=== PATIENT | male | born 1995 | race Caucasian/White ===

== ENCOUNTER 2022-11-02 18:47 | Emergency (ER) | payer OTHER, SELFPAY ==
[2022-11-02] VITALS (17 sets, daily range): BP systolic 79–136; BP diastolic 39–98; PULSE 75–110; RESP 10–20; TEMP 36.6; O2SAT 95–100
[2022-11-02] MEDS: SODIUM CHLORIDE 0.9% IV 2,000 ML 999 ML IV CONT (19:16)
[2022-11-02] MEDS: FAMOTIDINE 20 MG/2 ML VIAL IV PUSH (19:39)
--- NOTE | 2022-11-02 19:58 | ED.GENADULT ---
HPI - General Adult General Chief complaint: Nausea/Vomiting/Diarrhea Stated complaint: N/V/D SINCE 1600 Time Seen by Provider: 11/02/22 19:08 History of Present Illness HPI narrative: This is a 27-year-old male presenting with nausea vomiting diarrhea. Patient had [place] @ 11. By 2:00 p.m. he was having multiple episodes of profuse nausea/vomiting/diarrhea. Patient also describes diffuse abdominal pain at that time was a sharp stabbing, all over his abdomen an 8/10 in intensity. It improved with Zofran that was given by EMS. This time patient is feeling little bit dizzy. He denies fever, chills, chest pain difficulty breathing or urinary symptoms. He is back against flu and COVID. Related Data Allergies Allergy/AdvReac Type Severity Reaction Status Date / Time No Known Allergies Allergy Verified 11/02/22 19:01 [facility] Social History Social History Social History: Denies use of drugs alcohol or tobacco Exam Narrative: APPEARANCE: No apparent distress. Head: atraumatic. EYES: EOMI, NOSE: Atraumatic NECK: Trachea midline RESPIRATORY: No increased rate of breathing CARDIOVASCULAR: RRR, ABDOMINAL: Non-distended, nontender no guarding or rebound MUSCULOSKELETAl: No obvious deformities NEURO: Alert. Moving 4/4 extremities SKIN:: Warm, dry. Normal color PSYCHIATRIC: Normal affect Course Vital Signs Vital signs: Vital Signs Temperature 98 F 11/02/22 18:58 Pulse Rate 88 11/02/22 18:58 Respiratory Rate 20 11/02/22 18:58 Blood Pressure 79/39 L 11/02/22 18:58 Pulse Oximetry 98 11/02/22 18:58 Oxygen Delivery Room Air 11/02/22 18:58 Temperature 98 F 11/02/22 18:58 Pulse Rate 88 11/02/22 18:58 Respiratory Rate 20 11/02/22 18:58 Blood Pressure 111/64 11/02/22 19:08 Pulse Oximetry 98 11/02/22 18:58 Oxygen Delivery Room Air 11/02/22 18:58 Medical Decision Making [facility] Narrative Medical decision making narrative: -Presentation: 27-year-old male presenting with acute onset of nausea vomiting and diarrhea. -DDX includes but is not limited to: Food poisoning, gastroenteritis, viral syndrome -Co-morbidities complicating care: none -External Chart Review: none -Hx from independent Sources: EMS -Discussion of Management/Consultants: none -Independent interpretation of studies: Initial blood pressure was 79/39 although this improved to 111/64 without intervention. Patient will be given 2 L of fluid. CBC, CMP and lipase within normal limits Dx tests considered but not ordered: CT abdomen pelvis -abdomen is soft, nontender, Viral studies - patient is young, well-appearing and afebrile. -Procedures:None -Interventions: Zofran from EMS, Pepcid 20 mg, 2 L of fluid -RX: Zofran 4mg odt -Shared decision making / Disposition: A 27-year-old male presenting with acute onset nausea vomiting diarrhea. Patient improved with symptomatic treatment. patient's vital signs improved. He is able to tolerate p.o.. He is comfortable going home with return precautions we developed intractable nausea and vomiting, fever or severe abdominal pain return emergency department. He was educated on the expected course of his illness. Patient will be discharged with Zofran. Vital Signs Vital Signs: Vital Signs Temperature 98 F 11/02/22 18:58 Pulse Rate 88 11/02/22 18:58 Respiratory Rate 20 11/02/22 18:58 Blood Pressure 79/39 L 11/02/22 18:58 Pulse Oximetry 98 11/02/22 18:58 Oxygen Delivery Room Air 11/02/22 18:58 Temperature 98 F 11/02/22 18:58 Pulse Rate 88 11/02/22 18:58 Respiratory Rate 20 11/02/22 18:58 Blood Pressure 111/64 11/02/22 19:08 Pulse Oximetry 98 11/02/22 18:58 Oxygen Delivery Room Air 11/02/22 18:58 Discharge Plan Discharge Clinical Impression: Gastroenteritis Patient Disposition: Home, Self-Care Condition: Stable Additional Instructio
[2022-11-02 19:59] LABS: Basophils Percent Auto 0.5 % (0.2-1.2); Eosinophils Percent Auto 0.6 % (0-4.4); Hematocrit 50.5 % (42.0-52.0); Hemoglobin 16.9 g/dL (14.0-18.0); Immature Granulocyte Absolute 0.02 K/mm3 (0.00-0.031); Immature Granulocyte Percent A 0.3 % (0-0.5); Lymphocytes Absolute Auto 0.28 K/mm3 (0.9-3.2); Lymphocytes Percent Auto 4.2 % (18.3-44.2); Mean Corpuscular HGB Conc 33.5 g/dl (32-36); Mean Corpuscular Hemoglobin 29.6 pg (26-34); Mean Corpuscular Volume 88.6 fl (80-100); Mean Platelet Volume 10.5 fl (7.4-10.4); Monocytes Absolute Auto 0.4 K/mm3 (0.1-0.6); Neutrophils Absolute Auto 5.9 K/mm3 (1.3-6.7); Neutrophils Percent Auto 88.4 % (45.5-73.1); Platelet Count Result 190 k/mm3 (150-375); Red Cell Distribution Width 12.1 % (11.5-14.5); White Blood Count 6.7 K/mm3 (4.5-10.0)
[2022-11-02 20:11] LABS: Alanine Aminotransferase 21 U/L (6-50); Albumin Level 4.7 g/dL (3.5-5.1); Alkaline Phosphatase 70 U/L (38-126); Anion Gap 9 mmol/L (8-16); Aspartate Amino Transferase 22 U/L (17-59); Blood Urea Nitrogen 19 mg/dL (9-20); Calcium 8.9 mg/dL (8.4-10.2); Carbon Dioxide 26 mmol/L (22-30); Chloride 106 mmol/L (98-107); Estimated CRCL calculation 129 ml/min; Estimated Glomerular Filt Rate > 60; Glucose 97 mg/dL (65-110); Lipase 69 U/L (23-300); Potassium 4.4 mmol/L (3.4-5.0); Sodium 141 mmol/L (137-145)
[2022-11-02] MEDS: ONDANSETRON INJ 4 MG/2 ML VIAL 8 MG IV PUSH (21:44)
== END 2022-11-02 22:20 | disposition home or self-care (01) ==
PROVIDERS: Emergency Provider Emergency Medicine; PCP Internal Medicine
DX: K52.9 Noninfective gastroenteritis and colitis, unspecified (principal)
CPT/HCPCS: 36415; 80053; 83690; 85025; 96361; 96374; 96375; 99284; J2405; J7030

== ENCOUNTER 2024-08-07 09:28 | Emergency (ER) | payer OTHER, SELFPAY ==
--- NOTE | ~2024-08-07 | XR_ITS ---
EXAMINATION: XR chest 1V portable DATE: 08/07/2024 11:35 INDICATION: Shortness of breath TECHNIQUE: frontal view of the chest was obtained. COMPARISON: None FINDINGS: The lungs are clear with no focal airspace opacities, pulmonary edema, pleural effusion or pneumothor ax. The cardiomediastinal silhouette is normal. Visualized bones and soft tissues are unremarkable. IMPRESSION: 1. No acute cardiopulmonary disease. Reviewed, dictated and finalized at location A.
[2024-08-07 09:35] VITALS: BP 147/81; PULSE 96; RESP 13; TEMP 37.4; O2SAT 100
[2024-08-07 09:46] VITALS: BP 146/86; PULSE 107; RESP 18; O2SAT 96
--- NOTE | 2024-08-07 10:10 | ED_ITS ---
HPI - General Adult General Chief complaint: Unspecified Stated complaint: swollen throat Time Seen by Provider: 08/07/24 10:10 Source: patient Mode of arrival: EMS Limitations: no limitations History of Present Illness HPI narrative: 29 years old white male complaining of Heart Breeze, sore throat, body aches, diaphoresis started 4 days ago. Patient is telling me that people at work tested positive for COVID, pneumonia and flu. Patient went to urgent care today, received Solu-Medrol IM subsequently developed blurry vision and everything went black. Came to the ED by ambulance. Currently complaining of headache, dry mouth, body aches and diaphoresis. Related Data Allergies Allergy/AdvReac Type Severity Reaction Status Date / Time No Known Allergies Allergy Verified 08/07/24 09:33 Review of Systems Review of Systems: All systems reviewed & are unremarkable except as noted in HPI and below PMFSH Social History Social History Social History: Denies use of drugs alcohol or tobacco Exam Narrative: General appearance: Well-developed, well-nourished Skin: diaphoretic Head: Normocephalic, nontraumatic Eyes: Clear conjunctiva ENT: Oropharyngeal erythema, erythematous , large,tonsils bilaterally Neck: Supple, nontender Chest and respiratory: Airway patent, no respiratory distress, no accessory muscle use Heart: Regular rate/rhythm Abdomen: Soft, nontender, no organomegaly, quiet bowel sounds Vascular: Normal peripheral pulses, normal capillary refill. 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 is normal as tested, no gross motor deficit Course Course Emergency Course: patient came to the ED with sore throat, hard to breathe, diaphoresis, body aches Vital signs are stable Physical examination showed discharge ache, ill looking patient with severe oropharyngeal erythema Differential diagnosis upper respiratory viral infection, strep throat, mono Vital Signs Vital signs: Vital Signs Temperature 37.4 C 08/07/24 09:35 Pulse Rate 96 08/07/24 09:35 Respiratory Rate 13 08/07/24 09:35 Blood Pressure 147/81 H 08/07/24 09:35 Pulse Oximetry 100 08/07/24 09:35 Temperature 37.4 C 08/07/24 09:35 Pulse Rate 92 08/07/24 12:39 Respiratory Rate 19 08/07/24 12:39 Blood Pressure 111/69 08/07/24 12:39 Pulse Oximetry 97 08/07/24 12:39 Medical Decision Making MDM Narrative Medical decision making narrative: PATIENT CAME TO THE ED WITH SCALD SYMPTOMS VITAL SIGNS ARE STABLE PHYSICAL EXAMINATION SHOWING EXTENSIVE OROPHARYNGEAL ERYTHEMA DIFFERENTIAL DIAGNOSIS UPPER RESPIRATORY VIRAL INFECTION VERSUS MONO VERSUS STREP THROAT PATIENT TESTED NEGATIVE FOR STREP, MONO, COVID, RSV AND FLU CHEST X-RAY SHOWED NO ACUTE ABNORMALITIES DIAGNOSIS VIRAL PHARYNGITIS, DISCHARGED ON [id number] COLD MEDICINE. DISCHARGE THE PT WAS DISCHARGED TO HOME.THE PT,S CONDITION UPON DISCHARGE WAS FAIR,EDUCATION WAS PROVIDED TO THE PT IN REFERENCE TO THE FINAL IMPRESSION,DISCHARGE STUDY RESULTS,TREATMENT,PROGNOSIS AND NEED FOR FOLLOW UP . Differential Diagnosis Differential Diagnosis: ABOVE Vital Signs Vital Signs: Vital Signs Temperature 37.4 C 08/07/24 09:35 Pulse Rate 96 08/07/24 09:35 Respiratory Rate 13 08/07/24 09:35 Blood Pressure 147/81 H 08/07/24 09:35 Pulse Oximetry 100 08/07/24 09:35 Temperature 37.4 C 08/07/24 09:35 Pulse Rate 92 08/07/24 12:39 Respiratory Rate 19 08/07/24 12:39 Blood Pressure 111/69 08/07/24 12:39 Pulse Oximetry 97 08/07/24 12:39 Lab Data Labs: Lab Results 08/07/24 08/07/24 Range/Units 10:28 10:45 Monoscreen Negative (Negative) Influenza A (RT-PCR) Negative (Negative) Influenza B (RT-PCR) Negative (Negative) SARS-CoV-2 RNA (RT-PCR) Negative (Negative) Group A Strep (PCR) Not detected (Negative) Imaging Data Radiologist's impression: Impressions Chest X-Ray 08/07/24 11:45 IMPRESSION: 1. No acute cardiopulmonary disease. Critical Care Time Critical Care Time Critical Care Time: No Discharge Plan Discharge Clinical Impression: Acute viral pharyngitis Patient Disposition: Home, Self-Care Condition: Stable Instructions: Upper Respiratory Infection (DC), Viral Syndrome (ED) Additional Instructions: RETURN IF SYMPTOMS ARE WORSENING , CALL YOUR FAMILY PHYSICIAN FOR APPOINTMENT, TAKE TYLENOL, IBUPROFEN NEEDED FOR ACHES AND PAIN, CONTINUE HOME MEDICATIONS. [id number] AFRIN NASAL SPRAY, MUCINEX COLD AND CONGESTION MEDICINE Prescriptions: No Action ondansetron 4 mg tablet,disintegrating 4 mg PO Q8H PRN (Reason: nausea and vomiting) Qty: 16 0RF Follow-up/Referrals: Ronald Rojas MD [Primary Care Provider] - Stand Alone Forms: Work/School Release IP
[2024-08-07 10:16] VITALS: BP 144/78; PULSE 104; RESP 9; O2SAT 97
[2024-08-07 10:32] VITALS: BP 138/68; PULSE 105; RESP 11; O2SAT 97
[2024-08-07 11:04] LABS: Strep Group A RT-PCR NOT DETECTED (Negative)
[2024-08-07 11:16] LABS: Influenza A QL RT-PCR Negative (Negative); Influenza B QL RT-PCR Negative (Negative); SARS-CoV-2 RNA PCR Negative (Negative)
[2024-08-07 11:23] LABS: Monoscreen Negative (Negative); Negative Monotest Control Negative (Negative); Positive Monotest Control Positive (Positive)
[2024-08-07] MEDS: ACETAMINOPHEN 500 MG TABLET 1000 MG PO (12:22)
[2024-08-07] MEDS: KETOROLAC 30 MG/ML VIAL (*BKC) IV PUSH (12:26)
[2024-08-07] MEDS: SODIUM CHLORIDE 0.9% IV 1,000 ML 999 ML IV CONT (12:35)
[2024-08-07 12:39] VITALS: BP 111/69; PULSE 92; RESP 19; O2SAT 97
[2024-08-07 13:52] VITALS: BP 131/74; PULSE 92; RESP 15; TEMP 36.9; O2SAT 99
== END 2024-08-07 14:07 | disposition home or self-care (01) ==
PROVIDERS: Emergency Provider Emergency Medicine; PCP Internal Medicine
DX: J02.8 Acute pharyngitis due to other specified organisms (principal); Z20.822 Contact with and (suspected) exposure to COVID-19
CPT/HCPCS: 36415; 71045; 86308; 87636; 87651; 96361; 96374; 99284; A9270; J1885; J7030

== ENCOUNTER 2024-10-11 08:54 | Emergency (ER) | payer OTHER, SELFPAY ==
--- NOTE | ~2024-10-11 | CT_ITS ---
EXAMINATION: CT soft tissue neck w con DATE: 10/11/2024 11:05 INDICATION: Peritonsillar abscess. TECHNIQUE: Computed tomography (CT) of the neck was performed with 75 mL Omnipaque-350 intravenous co ntrast. Automated exposure control and iterative reconstruction technique were employed. The dose-josefina gth product was 594.73 mGy-cm. COMPARISON: None FINDINGS: The palatine tonsils are enlarged. No abscess. There is mild bilateral high internal jugula r chain lymphadenopathy. The cervical carotid arteries are normal. There is mucosal thickening in the ethmoid sinuses. The mastoid air cells are normal. There is mild cervical spondylosis. Cervical dext roscoliosis is noted. IMPRESSION: 1. Enlarged palatine tonsils, consistent with inflammation/infection. No abscess. 2. Mild bilateral high internal jugular chain lymphadenopathy, likely reactive. Reviewed, dictated and finalized at location A. ICAL THERAPIST CLINIC DIRECTOR IMPRESSION: 1. Enlarged palatine tonsils, consistent with inflammation/infection. No absces s. 2. Mild bilateral high internal jugular chain lymphadenopathy, likely reactive.
[2024-10-11 09:05] VITALS: BP 146/86; PULSE 100; RESP 16; TEMP 37.4; O2SAT 100
[2024-10-11 09:38] LABS: Strep Group A RT-PCR DETECTED (Negative)
[2024-10-11 09:50] LABS: Influenza A QL RT-PCR Negative (Negative); Influenza B QL RT-PCR Negative (Negative); RSV RNA, RT-PCR Negative (Negative); SARS-CoV-2 RNA PCR Negative (Negative)
--- NOTE | 2024-10-11 10:00 | ED.URI ---
HPI - URI/Sore Throat General Chief Complaint: Upper Respiratory Infection Stated Complaint: sore throat Time Seen by Provider: 10/11/24 10:00 Focused HPI: This is a 29-year-old male that presents to the emergency department for sore throat. Ongoing since yesterday. Reports fevers. Reports a mild cough. GENERAL: Well-appearing, well-nourished, and in no acute distress. HEAD: Normocephalic, atraumatic. ENT: Oropharynx with diffuse erythema and tonsillar hypertrophy (R>L) CHEST: Clear to auscultation. ?No respiratory distress. HEART: Regular rate and rhythm.? NEURO: ?Alert and oriented x3. Patient screened in triage and initial orders placed.? ?Additional care and disposition to be based upon?diagnostic testing and treatment. Related Data Allergies Allergy/AdvReac Type Severity Reaction Status Date / Time No Known Allergies Allergy Verified 08/07/24 09:33 Review of Systems Review of Systems: CONSTITUTIONAL: Reports fever ENT: Reports sore throat All systems reviewed & are unremarkable except as noted in HPI and below PMFSH Past Medical History Medical History (Updated 10/11/24 @ 11:20 by Janelle Morales PA-C) No active medical problems Social History Social History Social History: Denies use of drugs alcohol or tobacco Exam Narrative: GENERAL: Well-appearing, well-nourished, and in no acute distress. HEAD: Normocephalic, atraumatic. EYES: EOMI. ENT: Nares clear, no rhinorrhea or epistaxis. Mucous membranes moist. Oropharynx with bilateral tonsillar hypertrophy (R>L), no exudate or other lesions. No trismus NECK: Supple. Tender anterior cervical adenopathy CHEST: Clear to auscultation. No respiratory distress. No wheezes rales or rhonchi HEART: Regular rate and rhythm. No murmur heard. Normal peripheral pulses. EXTREMITIES: Normal range of motion. No edema. SKIN: Warm, dry, no rash. NEURO: No focal deficits. Alert and oriented x3. PSYCH: Normal mood and affect Course Course Emergency Course: Patient updated on his workup and agrees with plan of care Vital Signs Vital signs: Vital Signs Temperature 99.3 F 10/11/24 09:05 Pulse Rate 100 10/11/24 09:05 Respiratory Rate 16 10/11/24 09:05 Blood Pressure 146/86 H 10/11/24 09:05 Pulse Oximetry 100 10/11/24 09:05 Oxygen Delivery Room Air 10/11/24 09:05 Temperature 99.3 F 10/11/24 09:05 Pulse Rate 100 10/11/24 09:05 Respiratory Rate 16 10/11/24 09:05 Blood Pressure 146/86 H 10/11/24 09:05 Pulse Oximetry 100 10/11/24 09:05 Oxygen Delivery Room Air 10/11/24 09:05 MDM - URI/Sore Throat MDM Narrative Medical decision making narrative: Patient presents the emergency department for sore throat ongoing since yesterday. Patient is afebrile and nontoxic appearing. No trismus on exam. He is more enlarged on the right. 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 CBC with leukocytosis to 16. CRP is 2.4. Strep is positive. CT soft tissue neck shows enlarged palatine tonsils, consistent with inflammation/infection. No abscess. Patient updated on his workup and agrees with plan of care. Given dose of anti-inflammatory, steroids and antibiotics in the ER. Will be continued on oral antibiotics. He is to follow up primary provider. He was given warnings to return to the ER Differential Diagnosis Differential diagnosis: Likely upper respiratory infection, pharyngitis and other (Strep) Lab Data Attestation: I reviewed the patient's lab results. 10/11/24 10:11 10/11/24 10:11 Labs: Lab Results 10/11/24 10/11/24 Range/Units 09:07 10:11 WBC 16.0 H (4.5-10.0) K/mm3 RBC 4.98 (4.6-6.20) M/mm3 Hgb 14.8 (14.0-18.0) g/dL Hct 43.0 (42.0-52.0) % MCV 86.3 (80-100) fl MCH 29.7 (26-34) pg MCHC 34.4 (32-36) g/dl RDW 12.9 (11.5-14.5) % Plt Count 206 (150-375) k/mm3 MPV 10.5 H (7.4-10.4) fl Immature Gran % (Auto) 0.4 (0-0.5) % Neut % (Auto) 86.3 H (45.5-73.1) % Lymph % (Auto) 7.0 L (18.3-44.2) % [place] % (Auto) 5.7 (2.6-8.5) % Eos % (Auto) 0.3 (0-4.4) % Baso % (Auto) 0.3 (0.2-1.2) % Lymph # (Auto) 1.11 (0.9-3.2) K/mm3 [place] # (Auto) 0.9 H (0.1-0.6) K/mm3 Eos # (Auto) 0.1 (0-0.3) K/mm3 Baso # (Auto) 0.1 (0.0-0.1) K/mm3 Abs Immat Gran (auto) 0.06 H (0.00-0.031) K/mm3 Absolute Neuts (auto) 13.8 H (1.3-6.7) K/mm3 Absolute Nucleated RBC 0.000 (0.0-0.012) K/mm3 Nucleated RBC % 0.0 (0.0-0.2) % ESR Pending Sodium 135 L (137-145) mmol/L Potassium 4.0 (3.4-5.0) mmol/L Chloride 99 (98-107) mmol/L Carbon Dioxide 30 (22-30) mmol/L Anion Gap 6 (4-12) mmol/L BUN 13 D (9-20) mg/dL Creatinine 0.85 (0.7-1.3) mg/dL Estim Creat Clear Calc 134 ml/min Estimated GFR > 60 (59 - ) Glucose 92 (65-110) mg/dL Calcium 9.5 (8.4-10.2) mg/dL C-Reactive Protein 2.4 H (<1.0) mg/dL Influenza A (RT-PCR) Negative (Negative) Influenza B (RT-PCR) Negative (Negative) RSV (RT-PCR) Negative (Negative) SARS-CoV-2 RNA (RT-PCR) Negative (Negative) Group A Strep (PCR) Detected A (Negative) Imaging Data Radiologist's impression: ITS Impressions Soft Tissue Neck CT 10/11/24 11:07 IMPRESSION: 1. Enlarged palatine tonsils, consistent with inflammation/infection. No abscess. 2. Mild bilateral high internal jugular chain lymphadenopathy, likely reactive. Critical Care Time Critical Care Time Critical Care Time: No Discharge Plan Discharge Clinical Impression: Acute streptococcal pharyngitis Patient Disposition: Home, Self-Care Condition: Stable Instructions: Antibiotic Form, Strep Throat (ED) Additional Instructions: Return to the emergency department for worsening symptoms, or any other concerns Remain well-hydrated, get plenty of rest. Take Tylenol or Motrin [id number] for pain as needed. Continue oral antibiotic as prescribed Follow up with primary care doctor Patient Language: Bengali Prescriptions: New penicillin V potassium 500 mg tablet 500 mg PO Q12H 10 Days Qty: 20 0RF No Action ondansetron 4 mg tablet,disintegrating 4 mg PO Q8H PRN (Reason: nausea and vomiting) Qty: 16 0RF Follow-up/Referrals: Ronald Rojas MD [Primary Care Provider] -
[2024-10-11 10:22] LABS: Basophils Absolute Auto 0.1 K/mm3 (0.0-0.1); Basophils Percent Auto 0.3 % (0.2-1.2); Eosinophils Absolute Auto 0.1 K/mm3 (0-0.3); Eosinophils Percent Auto 0.3 % (0-4.4); Hemoglobin 14.8 g/dL (14.0-18.0); Immature Granulocyte Absolute 0.06 K/mm3 (0.00-0.031); Immature Granulocyte Percent A 0.4 % (0-0.5); Lymphocytes Absolute Auto 1.11 K/mm3 (0.9-3.2); Mean Corpuscular HGB Conc 34.4 g/dl (32-36); Mean Corpuscular Hemoglobin 29.7 pg (26-34); Mean Corpuscular Volume 86.3 fl (80-100); Mean Platelet Volume 10.5 fl (7.4-10.4); Monocytes Absolute Auto 0.9 K/mm3 (0.1-0.6); Monocytes Percent Auto 5.7 % (2.6-8.5); Neutrophils Absolute Auto 13.8 K/mm3 (1.3-6.7); Neutrophils Percent Auto 86.3 % (45.5-73.1); Platelet Count Result 206 k/mm3 (150-375); Red Blood Count 4.98 M/mm3 (4.6-6.20); Red Cell Distribution Width 12.9 % (11.5-14.5)
[2024-10-11 10:36] LABS: Anion Gap 6 mmol/L (4-12); Blood Urea Nitrogen 13 mg/dL (9-20); CRP 2.4 mg/dL (<1.0); Calcium 9.5 mg/dL (8.4-10.2); Carbon Dioxide 30 mmol/L (22-30); Chloride 99 mmol/L (98-107); Estimated CRCL calculation 134 ml/min; Estimated Glomerular Filt Rate > 60; Glucose 92 mg/dL (65-110); Sodium 135 mmol/L (137-145)
[2024-10-11] MEDS: AMPICILLIN SULB 3 GM/NS 100 ML 3 GM/100 ML VIAL IVPB (11:34)
[2024-10-11] MEDS: KETOROLAC 15 MG/ML VIAL (*BKC) IV PUSH (11:34)
[2024-10-11] MEDS: dexAMETHasone SOD PHOS INJ 10 MG/ML 1 ML VIAL IV PUSH (11:34)
[2024-10-11 11:37] LABS: Erythrocyte Sedimentation Rate 23 mm/hr (0-20)
[2024-10-11 12:14] VITALS: O2SAT 98
--- OUTSIDE RECORDS SUMMARY | 2024-10-17 16:42 | XMS_ITS | Encounter Summary ---
Author Organization [facility] Address [facility] [place] [address] Care Team Providers Care Aesthetician Name Role Phone Unavailable Primary Care Provider Unavailabl e Reason for Visit * Reason Onset Date Comments Follow-up 12/25/2016 Encounter Details Date Type Department Care Team (Late st Contact Info) Description 12/25/2016 Telephone [facility] AT [address] [phone] Laurie Rae Follow-up Social History Tobacco Use Types Packs/Day Years Used Date Smoking Tobacco: Never Sex and Gender Information Value Date Recorded Sex Assigned at Not on file Gender Identity Not on file Sexual Orientation Not on file documented as of this encounter Plan of Treatment Not on file documented as of this encounter Visit Diagnoses Not on filedocumented in this encounter
--- OUTSIDE RECORDS SUMMARY | 2024-10-17 16:42 | XMS_ITS | Encounter Summary ---
Author Organization [facility] Address [address] [place] [address]. [place], [place] [id number] [place] [id number] Care Team Providers Care Card Assembler Name Role Phone Juan Francisco Carbajal MD Primary Care Provider Unava ilable Encounter Details Date Type Department Care Team (Latest Contact Info) Description 06/29/2018 Scan [facility] , Dakota Doshi MD Social History Tobacco Use Types Packs/Day Years Used Date Smoking Tobacco: Never Assessed Sex and Gender Information Value Date Recorded Sex Assigned at Not on file Legal Sex Male 6:51 PM CDT Gender Identity Not on file Sexual Orientation Not on file documented as of this encounter Plan of Treatment Not on file documented as of this encounter Visit Diagnoses Not on filedocumented in this encounter Care Teams Card Assembler Relationship Specialty Start Date End Date Juan Francisco Carbajal MD PCP - General FAMILY PRACTICE 04/29/18 documented as of this encounter
--- OUTSIDE RECORDS SUMMARY | 2024-10-17 16:42 | XMS_ITS | Encounter Summary ---
Author Organization [facility] Address [address] [place] [address]. [place] [address] [place] [address] Care Team Providers Care Car Record Clerk Name Role Phone Juan Francisco Carbajal MD Primary Care Provider Unava ilable Encounter Details Date Type Department Care Team (Late st Contact Info) Description 04/30/2018 Orders Only [facility] [address] [place] [address] Juan Francisco Carbajal MD Social History Tobacco Use Types Packs/Day Years Used Date Smoking Tobacco: Never Assessed Sex and Gender Information Value Date Recorded Sex Assigned at Not on file Legal Sex Male 6:51 PM CDT Gender Identity Not on file Sexual Orientation Not on file documented as of this encounter Plan of Treatment Not on file documented as of this encounter Results * THYROID STIM HORMONE, TSH (04/30/2018 8:15 AM CDT) TSH 3.326 0.15 - 4.76 uIU/ML 04/30/2018 5:41 PM CDT [facility] 04/30/2018 8:15 AM CDT us Juan Francisco Carbajal MD LABORATORY Final Result [facility] [address] [place] [address], * (ABNORMAL) LIPID PANEL (04/30/2018 8:15 AM CDT) CHOLESTEROL 186 <200 MG/DL 04/30/2018 5:52 PM CDT [facility] TRIGLYCERIDES 240(H) <150 MG/DL 04/30/2018 5:52 PM CDT [facility] HDL 38(L) 40 - 59 MG/DL 04/30/2018 5:52 PM CDT [facility] LDL (CALCULATED) 100(H) <100 MG/DL 04/30/20 18 5:52 PM CDT [facility] CHOL/HDL RATIO 4.9 3.00 - 5.00 04/30/2018 5:52 PM CDT [facility] 04/30/2018 8:15 AM CDT us Juan Francisco Carbajal MD LABORATORY Final Result [facility] [address] [place] [address], * COMPREHENSIVE METABOLIC PANEL (04/30/2018 8:15 AM CDT) CALCIUM S/P/B 10.1 8.4 - 10.7 MG/DL 04/30/2018 5:52 PM CDT [facility] GLUCOSE 84 70 - 139 MG/DL 04/30/2018 5:52 PM T [facility] BUN 17 8.4 - 25.7 MG/DL 04/30/2018 5:52 PM T [facility] CREATININE S/P/B 0.80 0.70 - 1.30 MG/DL 04/30/2018 5:52 PM T [facility] EGFR NON-AFR. AMER. >90 >90 ML/MIN/1.7 3 M2 04/30/2018 5:52 PM CDT [facility] EGFR AFR. AMER. >90 >90 ml/min/1.7 3 m2 04/30/2018 5:52 PM [facility] SODIUM S/P/B 138 136 - 145 MMOL/L 04/30/2018 5:52 PM [facility] POTASSIUM S/P/B 4.2 3.6 - 5.0 MMOL/L 04/30/2018 5:52 PM [facility] CHLORIDE S/P/B 103 98 - 113 MMOL/L 04/30/2018 5:52 PM [facility] CO2 26 20 - 30 MMOL/L 04/30/2018 5:52 PM [facility] ANION GAP 13 10 - 21 MMOL/L 04/30/2018 5:52 PM [facility] OSMOLALITY (CALC) 276 04/30/2018 5:52 PM [facility] BILIRUBIN TOTAL S/P/B 0.3 0.2 - 1.2 MG/DL 04/30/2018 5:52 PM [facility] ALKALINE PHOSPHATASE S/P/B 75 40 - 150 U/L 04/30/2018 5:52 PM [facility] AST 19 5 - 45 U/L 04/30/2018 5:52 PM [facility] ALT 36 0 - 55 U/L 04/30/2018 5:52 PM [facility] TOTAL PROTEIN S/P/B 7.5 6.4 - 7.9 G/DL 04/30/2018 5:52 PM [facility] ALBUMIN S/P/B 4.8 3.5 - 5.2 G/DL 04/30/2018 5:52 PM [facility] GLOBULIN 2.7 2.1 - 3.8 G/DL 04/30/2018 5:52 PM [facility] 04/30/2018 8:15 AM CDT Juan Francisco Carbajal MD LABORATORY Final Result [facility] [address] [place] [address], * (ABNORMAL) CBC, AUTO, NO DIFF (04/30/2018 8:15 AM CDT) WBC 6.8 3.6 - 10.6 x10'3/uL 04/30/2018 5:07 PM CDT [facility] RBC 5.76(H) 4.18 - 5.51 x10'6/uL 04/30/2018 5:07 PM CDT [facility] HGB 16.4 13.4 - 17.0 G/DL 04/30/2018 5:07 PM CDT [facility] HCT 49.9 40.0 - 54.0 % 04/30/2018 5:07 PM T [facility] MCV 86.6 81.0 - 99.0 FL 04/30/2018 5:07 PM CDT [facility] MCH 28.5 27.0 - 34.0 PG 04/30/2018 5:07 PM CDT [facility] MCHC 32.9 32.0 - 36.0 G/DL 04/30/2018 5:07 PM T [facility] RDW 12.2 11.5 - 14.5 % 04/30/2018 5:07 PM CDT [facility] PLT 217 150.0 - 450.0 x10'3/uL 04/30/2018 5:07 PM T [facility] MPV 11.5 7.0 - 12.0 FL 04/30/2018 5:07 PM T [facility] 04/30/2018 8:15 AM CDT Juan Francisco Carbajal MD LABORATORY Final Result [facility] [address] [place] [address], documented in this encounter Visit Diagnoses Diagnosis Encounter for screening for diabetes mellitus Screening for diabetes mellitus Encounter for screening for lipoid disorders Screening for lipoid disorders Rash and other nonspecific skin eruption documented in this encounter Care Teams Car Record Clerk Relationship Specialty Start Date End Date Juan Francisco Carbajal MD PCP - General FAMILY PRACTICE 04/29/18 documented as of this encounter
--- OUTSIDE RECORDS SUMMARY | 2024-10-17 16:42 | XMS_ITS | Encounter Summary ---
Author Organization [facility] Address [facility] [facility] [place] [address] [place] [address] Care Team Providers Care Segmental Wall Installer Name Role Phone Juan Francisco Carbajal MD Primary Care Provider Kit ilable Encounter Details Date Type Department Care Team (Latest Contact Info) Description 04/20/2018 Abstract [facility] Medical [facility] Social History Tobacco Use Types Packs/Day Years Used Date Smoking Tobacco: Never Assessed Sex and Gender Information Value Date Recorded Sex Assigned at Not on file Legal Sex Male 6:51 PM CDT Gender Identity Not on file Sexual Orientation Not on file documented as of this encounter Progress Notes * Generic Conversion MD Zena - 04/20/2018 3:16 PM CDT History of Present Illness Health Screening BMI Screening Overdue. BMI Follow Up Plan Current. Current Tobacco Status: Current, Tobacco Non User, Date Assessed 04/20/18. Depression Screening Current. Vaccinations Flu Vaccination: Current, Date Received: 04/20/18. Additional Information: Pt Refused Flu Chronic Conditions Diabetes Not Applicable. Hypertension Not Applicable. Depression Remission Score: 6 Last PHQ-9 Date: 04/20/18 Over the past 2 weeks, how often have you been bothered by the following problems? 1.) Little interest or pleasure in doing things? Half the days or more. 2.) Feeling down, depressed or hopeless? Several days. TOTAL SCORE: 3. Positive Screening Over the past 2 weeks, how often have you been bothered by the following problems? 1.) Little interest or pleasure in doing things? Half the days or more. 2.) Feeling down, depressed or hopeless? Several days. 3.) Trouble falling asleep or sleeping too much? Half the days or more. 4.) Feeling tired or having little energy? Not at all. 5.) Poor appetite or overeating? Not at all. 6.) Feeling bad about yourself, or that you are a failure, or have let yourself or your family down? Several days. 7.) Trouble concentrating on things, such as reading a newspaper or watching television? Not at all. 8.) Moving or speaking so slowly that other people could have noticed, or the opposite, moving or speaking faster than usual? Not at all. 9.) Thoughts that you would be off or of hurting yourself in some way? Not at all. TOTAL SCORE: 6, severity of depression is mild. How difficult have these problems made it for you to do your work, take care of things at home, or get along with people? Somewhat difficult. Signatures Electronically signed by : Joann Erazo, ; Apr 20 2018 3:25PM [employer]AT MANAGER (Author) documented in this encounter Plan of Treatment Not on file documented as of this encounter Visit Diagnoses Not on filedocumented in this encounter Care Teams Segmental Wall Installer Relationship Specialty Start Date End Date Juan Francisco Carbajal MD PCP - General FAMILY PRACTICE 04/29/18 documented as of this encounter
--- OUTSIDE RECORDS SUMMARY | 2024-10-17 16:42 | XMS_ITS | Clinical Summary ---
Author Organization [facility] Address [address] [place] [address]. [place] [address] [place] [address] Care Team Providers Care Computer Engineering Professor Name Role Phone Juan Francisco Carbajal MD Primary Care Provider Unava ilable Allergies No known active allergies Active Problems Problem Noted Date Diagnosed Date Cervicalgia 04/29/2018 Pain in thoracic spine 04/29/2018 Immunizations Name Administration Dates Next Due Influenza Adult (Generic) 07/01/2018 Family History Medical History Relation Comments Diabetes Maternal Grandmother Hypertension Mother Relation Status Comments Maternal Grandmother Mother Social History Tobacco Use Types Packs/Day Years Used Date Smoking Tobacco: Never Assessed Sex and Gender Information Value Date Recorded Sex Assigned at Not on file Legal Sex Male 6:51 PM CDT Gender Identity Not on file Sexual Orientation Not on file Last Filed Vital Signs Vital Sign Reading Time Taken Comments Blood Pressure 125/78 04/29/2018 2:27 PM CDT Pulse 70 04/29/2018 2:27 PM CDT Temperature - - Respiratory Rate - - Oxygen Saturation - - Inhaled Oxygen Concentration - - Weight 110.9 kg (244 lb 9 oz) 04/29/2018 2:27 PM CDT Height 193 cm (6' 4 ) 04/29/2018 2:27 PM CDT Body Mass Index 29.77 04/29/2018 2:27 PM CDT Plan of Treatment Health Maintenance Due Date Last Done Comments Annual Physical 1998 Hepatitis C 2013 DTaP, Tdap and Td Vaccines ( 1 - Tdap) 2014 Hepatitis B Vaccines (1 of 3 - 19+ 3-dose series) 2014 COVID-19 Vaccine ( - 2023-2 5 season) 2024 Influenza Adult (#1) 2024 07/01/2018 HPV Vaccines Aged Out No longer eligi ble based on patient's age to complete this topic Meningococcal Vaccine Aged Out No tree maria eugenia eligible based on patient's age to complete this topic Pneumococcal Vaccine: Pediat rics (0 to 5 Years) and At-Risk Patients (6 to 64 Years) Aged Out No longer eligi ble based on patient's age to complete this topic RSV Immunizations Under 20 Months Aged Out No longer eligible based on patient's age to complete this topic Insurance Care Teams Computer Engineering Professor Relationship Specialty Start Date End Date Juan Francisco Carbajal MD PCP - General FAMILY PRACTICE 04/29/18
--- OUTSIDE RECORDS SUMMARY | 2024-10-17 16:42 | XMS_ITS | Encounter Summary ---
Author Organization [facility] Address [facility] [place] [address] [place] [address] Care Team Providers Care Dice Maker Name Role Phone Melinda Flores MD Primary Care Provider Unava ilable Encounter Details Date Type Department Care Team (Latest Contact Info) Description 04/29/2018 Abstract [facility] Medical Group Melinda Flores MD Social History Tobacco Use Types Packs/Day Years Used Date Smoking Tobacco: Never Assessed Sex and Gender Information Value Date Recorded Sex Assigned at Not on file Legal Sex Male 6:51 PM CDT Gender Identity Not on file Sexual Orientation Not on file documented as of this encounter Plan of Treatment Not on file documented as of this encounter Procedures Procedure Name Priority Date/Time Associated Diagnosis Comments XR THOR SPINE 3V Routine 04/29/2018 4:30 PM CDT documented in this encounter Results * XR THOR SPINE 3V (04/29/2018 4:30 PM CDT) Anatomical Region Laterality Modality Spine Radiographic Natalia ging 04/29/2018 4:30 PM CDT 04/29/2018 4:30 PM CDT Narrative 04/29/2018 4:54 PM CDT Examination: XR THOR SPINE 3V Exam time: 04/29/2018 4:20 PM Clinical history: Upper back and neck pain, no history of acute trauma Comparison: None Technique: AP, lateral and swimmer's views Findings: Thoracic vertebral bodies are in good alignment. Thoracic vertebral body heights and disc spaces are well-maintained. No paravertebral soft tissue abnormalities are demonstrated. There is no evidence of acute thoracic spine fracture or focal bone destructive lesion. IMPRESSION: 1) No acute thoracic spine abnormality is demonstrated. Interpreted By: Primo Tan MD, 04/29/2018 4:51 PM Order Doctor: MELINDA FLORES Procedure Note Dakota Freitas MD - 03/24/2019 Examination: XR THOR SPINE 3V Exam time: 04/29/2018 4:20 PM Clinical history: Upper back and neck pain, no history of acute trauma Comparison: None Technique: AP, lateral and swimmer's views Findings: Thoracic vertebral bodies are in good alignment. Thoracic vertebral body heights and disc spaces are well-maintained. No paravertebral soft tissue abnormalities are demonstrated. There is no evidence of acute thoracic spine fracture or focal bone destructivelesion. IMPRESSION: 1) No acute thoracic spine abnormality is demonstrated. Interpreted By: Primo Tan MD, 04/29/2018 4:51 PM Order Doctor: MELINDA FLORES Melinda Flores MD GENERAL IMAGING Final Result documented in this encounter Visit Diagnoses Not on filedocumented in this encounter Care Teams Dice Maker Relationship Specialty Start Date End Date Melinda Flores MD PCP - General FAMILY PRACTICE 04/29/18 documented as of this encounter
--- OUTSIDE RECORDS SUMMARY | 2024-10-17 16:42 | XMS_ITS | Encounter Summary ---
Author Organization [facility] Address [address] [place] [address] Care Team Providers Care Brine Plant Operator Name Role Phone Unavailable Primary Care Provider Unavailabl e Reason for Visit * Reason Comments Cough Congestion Sore Throat Headache Fatigue Encounter Details Date Type Department Care Team (Late st Contact Info) Description 12/09/2019 10:20 AM FEE CLERK Office Visit [facility] AT [address] [phone] Provider, [facility] [place] Influenza B (Primary Dx); Strep pharyngitis Social History Tobacco Use Types Packs/Day Years Used Date Smoking Tobacco: Never Smokeless Tobacco: Never Alcohol Use Standard Drinks/Week Comments Yes 0 (1 standard drink = 0.6 oz pur e alcohol) Sex and Gender Information Value Date Recorded Sex Assigned at Not on file Gender Identity Not on file Sexual Orientation Not on file documented as of this encounter Last Filed Vital Signs Vital Sign Reading Time Taken Comments Blood Pressure 122/80 12/09/2019 10:07 AM FEE CLERK Pulse 110 12/09/2019 10:07 AM FEE CLERK Temperature 36.7 ??C (98 ??F) 12/09/2019 10:07 AM FEE CLERK Respiratory Rate 16 12/09/2019 10:07 AM FEE CLERK Oxygen Saturation 97% 12/09/2019 10:07 AM FEE CLERK Inhaled Oxygen Concentration - - Weight 108 kg (238 lb) 12/09/2019 10:07 AM FEE CLERK Height 190.5 cm (6' 3 ) 12/09/2019 10:07 AM FEE CLERK Body Mass Index 29.75 12/09/2019 10:07 AM FEE CLERK documented in this encounter Patient Instructions * Patient Instructions* Lena Vance APRN-CNP - 12/09/2019 10:12 AM FEE CLERK Images from the original note were not included. Patient Education Strep Throat DOUGHMAKER: Strep throat is a throat infection caused by bacteria. It is easily spread from person to person. Common symptoms include the following: ?? Sore, red, and swollen throat ?? Fever and headache ?? Upset stomach, abdominal pain, or vomiting ?? White or yellow patches or blisters in the back of your throat ?? Tender, swollen lumps on the sides of your neck or jaw ?? Throat pain when you swallow Call 911 for any of the following: ?? You have trouble breathing. Seek care immediately if: ?? You have new symptoms like a bad headache, stiff neck, chest pain, or vomiting. ?? You are drooling because you cannot swallow your spit. Contact your healthcare provider if: ?? You have a fever. ?? You have a rash or ear pain. ?? You have green, yellow-brown, or bloody mucus when you cough or blow your nose. ?? You are unable to drink anything. ?? You have questions or concerns about your condition or care. Treatment for strep throat may include antibiotic medicine to treat your strep throat. You should feel better within 2 to 3 days after you start antibiotics. You may return to work or school 24 hoursafter you start antibiotics. Manage strep throat: ?? Use lozenges, ice, soft foods, or popsicles to soothe your throat. ?? Drink juice, milk shakes, or soup if your throat is too sore to eat solid food. Drinking liquidscan also help prevent dehydration. ?? Gargle with salt water. Mix ?? teaspoon salt in a glass of warm water and gargle. This may help reduce swelling in your throat. ?? Do not smoke. Nicotine and other chemicals in cigarettes and cigars can cause lung damage and make your symptoms worse. Ask your healthcare provider for information if you currently smoke and needhelp to quit. E-cigarettes or smokeless tobacco still contain nicotine. Talk to your healthcare provider before you use these products. Prevent the spread of strep throat: ?? Wash your hands often. Use soap and water. Wash your hands after you use the bathroom, change a child's diapers, or sneeze. Wash your hands before you prepare or eat food. ?? Do not share food or drinks. Replace your toothbrush after you have taken antibiotics for 24 hours. Follow up with your healthcare provider as directed: Write down your questions so you remember to ask them during your visits. ?? Copyright [employer] 2018 Information is for End User's use only and may not be sold, redistributed or otherwise used for commercial purposes. All illustrations and images included in CareNotes?? are the copyrighted property of [employer]. or [employer] The above information is an forestry aid only. It is not intended as medical advice for individual conditions or treatments. Talk to your doctor, nurse or pharmacist before following any medical regimen to see if it is safe and effective for you. Patient Education Influenza WHAT YOU NEED TO KNOW: What is influenza? Influenza (the flu) is an infection caused by the influenza virus. The flu is easily spread when an infected person coughs, sneezes, or has close contact with others. You may be able to spread the flu to others for 1 week or longer after signs or symptoms appear. What increases my risk for the flu? ?? Living with or caring for someone who has the flu ?? Living in a half-way or long-term care facility ?? Living in close quarters with others ?? A medical condition such as diabetes, cancer, heart disease, or lung disease ? Age older than 50 years ?? A weak immune system caused by HIV, AIDS, an organ transplant, or another condition ?? Traveling to places where other people have the flu What are the signs and symptoms of the flu? ?? Fever and chills ?? Headaches, body aches, and muscle or joint pain ?? Cough, runny nose, and sore throat ?? Loss of appetite, nausea, vomiting, or diarrhea ?? Tiredness ?? Trouble breathing How is the flu diagnosed? Your healthcare provider will examine you and ask if you have other health conditions. Tell him or her if you have been around sick people or traveled recently. Tell your healthcare provider if you are . A sample of fluid may be collected from your nose or throat to be tested for the flu virus. How is the flu treated? Most people get better within a week. You may need any of the following: ?? Acetaminophen decreases pain and fever. It is available without a doctor's order. Ask how much to take and how often to take it. Follow directions. Read the labels of all other medicines you are using to see if they also contain acetaminophen, or ask your doctor or pharmacist. Acetaminophen can cause liver damage if not taken correctly. Do not use more than 4 grams (4,000 milligrams) total of acetaminophen in one day. ?? NSAIDs , such as ibuprofen, help decrease swelling, pain, and fever. This medicine is available with or without a doctor's order. NSAIDs can cause stomach bleeding or kidney problems in certain people. If you take blood thinner medicine, always ask your healthcare provider if NSAIDs are safe foryou. Always read the medicine label and follow directions. ?? Antivirals help fight a viral infection. How can I manage my symptoms? ?? Rest as much as you can to help you recover. ?? Drink liquids as directed to help prevent dehydration. Ask how much liquid to drink each day andwhich liquids are best for you. How can I help prevent the spread of the flu? ?? Wash your hands often. Use soap and water. Wash your hands after you use the bathroom, change a child's diapers, or sneeze. Wash your hands before you prepare or eat food. Use gel hand cleanser that has 60% alcohol, when soap and water are not available. Do not touch your eyes, nose, or mouth unless you have washed your hands first. ?? Cover your mouth when you sneeze or cough. Cough into a tissue or the bend of your arm. If you use a tissue, throw it away immediately and wash your hands. ?? Clean shared items with a germ-killing water filter cleaner. Clean table surfaces, doorknobs, and light switches. Do not share towels, silverware, and dishes with people who are sick. Wash bed sheets, towels, silverware, and dishes with soap and water. ?? Wear a mask over your mouth and nose if you are sick. The face mask may help protect others frombecoming infected with the flu. Wear the mask when in common areas of your home or if you seek carewith a healthcare provider. ?? Stay away from others if you are sick. Stay at home until 24 hours after your fever and symptomsare gone. ?? Influenza vaccine helps prevent influenza (flu). Everyone 6 months or older should get a yearly influenza vaccine. Get the vaccine as soon as recommended each year, usually in June or July. Call your local emergency number (911 in the [place]) if: ?? You have trouble breathing, and your lips look purple or blue. ?? You have a seizure. ?? You have new pain or pressure in your chest. When should I seek immediate care? ?? You are dizzy, or you are urinating less or not at all. ?? You have a headache with a stiff neck, and you feel tired or confused. ?? You have new pain or pressure in your chest. ?? Your symptoms, such as shortness of breath, vomiting, or diarrhea, get worse. ?? Your symptoms, such as fever and coughing, seem to get better, but then get worse. When should I call my doctor? ?? You have new muscle pain or weakness. ?? You have questions or concerns about your condition or care. CARE AGREEMENT: You have the right to help plan your care. Learn about your health condition and how it may be treated. Discuss treatment options with your healthcare providers to decide what care you want to receive. You always have the right to refuse treatment. The above information is an forestry aid only. It is not intended as medical advice for individual conditions or treatments. Talk to your doctor, nurse or pharmacist before following any medical regimen to see if it is safe and effective for you. ?? Copyright [employer] 2019 Information is for End User's use only and may not be sold, redistributed or otherwise used for commercial purposes. All illustrations and images included in CareNotes?? are the copyrighted property of [employer]. or [employer] CLERK documented in this encounter Progress Notes * Lena Vance APRN-CNP - 12/09/2019 10:10 AM CST Subjective: Dayron Cardozo is a 24 year old male who presents for evaluation: Chief Complaint Patient presents with ??? Cough ??? Congestion ??? Sore Throat ??? Headache ??? Fatigue Primary Care Physician is Ronald Rojas MD. Symptoms include cough, congestion, sore throat, headache and fatigue. [place] feverish last night for the first time. Sore throat started Friday. Then all other symptoms started yesterday. Pt did not get flu vaccine this season. No known exposures No recent travel. Onset of symptoms was 4 days ago, gradually worsening since that time. He is drinking plenty of fluids. Evaluation to date: none. Treatment to date: Connie medrano No Known Allergies Outpatient Medications Marked as Taking for the 12/09/19 encounter (Office Visit) with Provider, Kelvin Marino Medication Sig ??? oseltamivir (TAMIFLU) 75 MG capsule Take 1 capsule by mouth 2 times daily for 5 days ??? penicillin v potassium (VEETIDS) 500 MG tablet Take 1 tablet by mouth 2 times daily for 10 days Past Medical History: Diagnosis Date ??? NEGATIVE PAST MEDICAL HISTORY - SEE PROBLEM LIST There is no problem list on file for this patient. Past Surgical History: Procedure Laterality Date ??? NEGATIVE SURGICAL HISTORY Social History Socioeconomic History ??? Marital status: Single Spouse name: Not on file ??? Number of children: Not on file ??? Years of education: Not on file ??? Highest education level: Not on file Occupational History ??? Not on file Social Needs ??? Financial resource strain: Not on file ??? Food insecurity Worry: Not on file Inability: Not on file ??? Transportation needs Medical: Not on file Non-medical: Not on file Tobacco Use ??? Smoking status: Never Smoker ??? Smokeless tobacco: Never Used Substance and Sexual Activity ??? Alcohol use: Yes ??? Drug use: Not on file ??? Sexual activity: Not on file Lifestyle ??? Physical activity Days per week: Not on file Minutes per session: Not on file ??? Stress: Not on file Relationships ??? Social connections Talks on phone: Not on file Gets together: Not on file Attends muslim service: Not on file Active member of club or organization: Not on file Attends meetings of clubs or organizations: Not on file Relationship status: Not on file ??? Intimate partner violence Fear of current or ex partner: Not on file Emotionally abused: Not on file Physically abused: Not on file Forced sexual activity: Not on file Other Topics Concern ??? Not on file Social History Narrative ??? Not on file Medications reviewed. Review of Systems Pertinent items are noted in HPI Constitutional: Positive for fevers, sweats, fatigue Ears, nose, mouth, and throat: Positive for congestion, sore throat Respiratory: Positive for acute cough Cardiovascular: Negative Gastrointestinal: Negative Hematologic/lymphatic: Negative Musculoskeletal:Negative Neurological: Positive for headaches Objective: BP 122/80 (BP SITE: LEFT ARM, BP POSITION: SITTING, BP CUFF SIZE: 11) Pulse 110 Temp 98 ??F (36.7 ??C) (Oral) Resp 16 Ht 1.905 m (6' 3 ) Wt 108 kg (238 lb) SpO2 97% BMI 29.75 kg/m2 Skin: Physical Exam Exam General appearance: alert, cooperative, no distress, oriented to person, place, and time, wellappearing Ears: canals clear, tympanic membranes normal, hearing intact to voice Nose: nares open; no septal deviation is noted, nasal mucosa not inflamed, no maxillary tenderness,clear rhinorrhea Throat: lips, mucosa, and tongue normal; teeth and gums normal, mild oropharyngeal erythema, no tonsillar hypertrophy, no exudates present, uvula is midline Neck: range of motion is intact, Nodes: mild, benign-appearing anterior cervical adenopathy Lungs: breath sounds normal and symmetric; no rales or wheezes Heart: regular rhythm, normal S1 and S2, without murmurs, gallops or rubs Neurologic: mental status normal; alert and oriented X 3; Recent Results (from the past 24 hour(s)) INFLUENZA A+B - POINT OF CARE (AMB) Collection Time: 12/09/19 12:00 AM Result Value Ref Range Influenza A Antigen Rapid Negative Negative Influenza B Antigen Rapid Positive (Abnormal) Negative Influenza Internal Control positive NEGATIVE - POSITIVE Influenza Lot Number [id number] Influenza Expiration Date 09/10/2021 STREP A SCREEN - POINT OF CARE (AMB) STL Collection Time: 12/09/19 12:00 AM Result Value Ref Range Strep A Rapid POCT Positive (Abnormal) Negative Strep A Internal Control Present Lot # [id number] Expiration Date 06/05/2021 Assessment: . Encounter Diagnoses Name Primary? Influenza B Yes ??? Strep pharyngitis Plan: Discussed dx and tx of URIs Discussed the importance of avoiding unnecessary abx therapy. Suggested symptomatic OTC remedies. Antibiotics per orders. RTC prn. Influenza ??? Supportive care is the focus of care with influenza-make sure to stay well- hydrated and treat symptoms with over the counter medications for symptom relief. ??? Take guaifenesin expectorants, i.e. Maximum Strength Mucinex, Robitussin, or store brand for chest congestion. ??? For cough, dextromethorphan (Delsym syrup, Robitussin cough capsules or store brand). Dextromethorphan is considered safe for and breast feeding women. ??? Antihistamine, i.e. Claritin, Zyrtec or Benadryl for nasal drainage, per package directions. ??? Increase oral fluids to at least 2 liters (2 quarts) of non-caffeinated, non-alcoholic beverages daily ??? Increase rest, monitor temperature ??? May alternate acetaminophen (Tylenol) and ibuprofen (Motrin or Advil) with food every 4-6 hoursfor fever, body aches, headache or sore throat. Do not exceed maximum daily dose per package instructions ??? May use hard candy, throat lozenges, Chloraseptic spray or warm salt water gargles to soothe throat ??? Activity as tolerated, Avoid crowds and large groups ??? Avoid spreading germs by washing hands frequently and covering mouth when coughing ??? People with influenza are contagious 1 day before symptoms begin and up to 7 days after gettingck Influenza Follow-up ??? Follow up with the clinic, primary care provider(Ronald Rojas MD) or urgent care if symptoms become more severe. ??? If you begin to feel better, then feel significantly worse, see your primary care provider or go to urgent care / ER ??? Call 911 or have someone take you to ER/Urgent Care if any difficulty with breathing or shortness of breath, if you develop high fevers that do not respond to ibuprofen (Advil / Motrin) or acetaminophen (Tylenol) , if you have a hard time awakening or staying awake or become lethargic or confused, or if you develop new stiffness in your neck. ??? If you need to be excused from more than 3 days off from work, please follow-up with your PCP. Strep throat -Please take & finish all of your medications as prescribed. THIS IS VERY IMPORTANT. -You are more CONTAGIOUS to others until you have been on antibiotics for 24 hours. -Avoid sharing food/ drinks and close contact until you are less contagious -Change your toothbrush the 3rd day you are on you antibiotics -Take Tylenol (acetaminophen) or Advil/Motin (ibuprofen) as needed per package directions for aches/pains. -Frequent warm or cool liquids can be soothing. Try soups or popsicles for comfort. If you still are not having relief with the above, you can try a Magic Mouthwash -Equal parts liquid antacid (e.g.Maalox) and children's Benadryl with a couple drops of Anbesol gargle and spit every 3-4 hours as needed. If you are not improving or worsening in the next 3-5 days you must RETURN to the clinic, go to your PCP, or Urgent Care/ER to be SEEN and reevaluated. No further prescriptions or refills will be given by phone without another evaluation. Discussed with pt the possible risk and side effects of tamiflu, such as: headache, nausea, vomiting, diarrhea, pain, rash, delirium, behavioral disturbances, anaphylaxis, self-injury, kinney-nahomy syndrome, rashes, pt states understanding and requesting script Pt advised to read insert from pharmacy on tamiflu Drink plenty of fluids and get plenty of rest If symptoms persist greater than 7 days or worsen at any time, follow up with a health care provider, clinic or emergency care Educational material given on influenza Work/School note offered Orders Placed This Encounter ??? INFLUENZA A+B - POINT OF CARE (AMB) ??? STREP A SCREEN - POINT OF CARE (AMB) STL ??? oseltamivir (TAMIFLU) 75 MG capsule Sig: Take 1 capsule by mouth 2 times daily for 5 days Dispense: 10 capsule Refill: 0 ??? penicillin v potassium (VEETIDS) 500 MG tablet Sig: Take 1 tablet by mouth 2 times daily for 10 days Dispense: 20 tablet Refill: 0 Continue to follow up with Ronald Rojas MD as directed. After Visit Summary reviewed with patient. The patient indicates understanding of these issues and agrees with the plan. Patient discharged to Home .ANNE MARIE Arreola 12/09/2019 10:24 AM CLERK documented in this encounter Plan of Treatment Not on file documented as of this encounter Procedures Procedure Name Priority Date/Time Associated Diagnosis Comments STREP A SCREEN - POINT OF CARE (AMB) STL Routine 12/09/2019 Influenza B INFLUENZA A+B - POINT OF CARE (AMB) Routine 12/09/2019 Influenza B documented in this encounter Results * (ABNORMAL) STREP A SCREEN - POINT OF CARE (AMB) STL (12/09/2019) Strep A Rapid POCT Positive(A) Negative Strep A Internal Control Present Lot # [id number] Expiration Date 06/05/2021 Throat ENTIRE THROAT (SURFACE REGION OF NECK) / Unknown 12/09/2019 Lena Vance APRN-MANAGER [employer] LAB - POINT OF CA RE ORDERABLES * (ABNORMAL) INFLUENZA A+B - POINT OF CARE (AMB) (12/09/2019) Influenza A Antigen Rapid Negative Negative Influenza B Antigen Rapid Positive(A) Negative Influenza Internal Control positive NEGATIVE - POSITIVE Influenza Lot Number [id number] Influenza Expiration Date 09/10/2021 Other NASOPHARYNGEAL SWAB / Unknown 12/09/2019 Lena Vance APRN-[facility] - POINT OF CA RE ORDERABLES documented in this encounter Visit Diagnoses Diagnosis Influenza B- Primary Influenza with other respiratory manifestations Strep pharyngitis Streptococcal sore throat documented in this encounter
--- OUTSIDE RECORDS SUMMARY | 2024-10-17 16:42 | XMS_ITS | Encounter Summary ---
Author Organization [facility] Address [address] [place] [address]. [place], [place] [id number] [place] [id number] Care Team Providers Care Information Systems Specialist Name Role Phone Juan Francisco Carbajal MD Primary Care Provider Unava ilable Encounter Details Date Type Department Care Team (Latest Contact Info) Description 07/03/2018 Abstract [facility] Dakota Freitas MD Social History Tobacco Use Types Packs/Day [...] on filedocumented in this encounter Care Teams Information Systems Specialist Relationship Specialty Start Date End Date Juan Francisco Carbajal MD PCP - General FAMILY PRACTICE 04/29/18 documented as of this encounter
--- OUTSIDE RECORDS SUMMARY | 2024-10-17 16:42 | XMS_ITS | Referral Summary ---
Author Organization [facility] [employer] Address [address] [place] [address] Care Team Providers Care Bullard Operator Name Role Phone Unavailable Primary Care Provider Unavailabl e Source Comments [facility] [employer],non-owned Affiliates and Associated Physician Practices is amultiple site organization consisting of ambulatory clinics and hospital sitesin [place], [place], [place]. This disclosure is being madepursuant to the Care Everywhere program and may not contain all information available regarding this patient. Last updated 18.[facility] [employer] Allergies No known active allergies Medications Be aware that medications may not be up to date on this document. Always verify current medications with the patient. No known medications Active Problems No known active problems Social History Tobacco Use Types Packs/Day Years [...] Comments Blood Pressure 122/80 12/09/2019 10:07 AM STOCK ROOM MANAGER Pulse 110 12/09/2019 10:07 AM STOCK ROOM MANAGER Temperature 36.7 ??C (98 ??F) 12/09/2019 10:07 AM STOCK ROOM MANAGER Respiratory Rate 16 12/09/2019 10:07 AM STOCK ROOM MANAGER Oxygen Saturation 97% 12/09/2019 10:07 AM STOCK ROOM MANAGER Inhaled Oxygen Concentration - - Weight 108 kg (238 lb) 12/09/2019 10:07 AM STOCK ROOM MANAGER Height 190.5 cm (6' 3 ) 12/09/2019 10:07 AM STOCK ROOM MANAGER Body Mass Index 29.75 12/09/2019 10:07 AM STOCK ROOM MANAGER Plan of Treatment Not on file [place] [address] Dayron Bacon Personal/Family Self [address] [place] [address] [place] [address]
--- OUTSIDE RECORDS SUMMARY | 2024-10-17 16:42 | XMS_ITS | Encounter Summary ---
Author Organization [facility] Health Address [address] [facility] [place] [address] Care Team Providers Care Assistant Speech Language Pathologist Name Role Phone Unavailable Primary Care Provider Unavailabl e Encounter Details Date Type Department Care Team (Late st Contact Info) Description 01/26/[address] [facility] Care DermPath Lab [address] [facility] [place] [address] Shantanu Guzman MD [address] [place] [address] Social History Tobacco Use Types Packs/Day Years [...] Procedure Name Priority Date/Time Associated Diagnosis Comments DERMATOPATHOLOGY Routine 01/24/2021 3:33 AM CDT documented in this encounter Results * DERMATOPATHOLOGY (01/24/2021 3:33 AM CDT) Case Report Dermatopathology Report ? Case: [id number] ? Authorizing Provider: ??hSantanu Guzman MD ?Collected: ? 01/24/2021 03:33 AM ? Ordering Location: ? [facility] DermPath Lab ?Received: ?01/26/2021 02:11 PM ? Pathologist: ? Darcy Stevens MD ? Specimen: ?Skin, occipital scalp ? 1 5:37 PM T DERMATOPATHOLOGY LABORATORY Final Diagnosis Specimen A. 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 DERMATOPATHOLOGY LABORATORY Clinical History R/O LPP. 5:[address] [facility] DERMATOPATHOLOGY LABORATORY Gross Description Specimen A: Received is one formalin filled container labeled with the patient's name and designated occipital scalp. The specimen consists of a punch biopsy measuring [id number]. Jar 0. 5:37 PM T DERMATOPATHOLOGY LABORATORY Microscopic Description Specimen A. SKIN, occipital scalp: Transverse histologic sections of the scalp reveal occasional follicular units replaced by fibrosis. Sebaceous glands are present. Minimal inflammation is seen. Additional findings include perifollicular fibrosis, and miniaturization with scattered fibrous stellae. The overlying epidermis is normal. Verhoeff-Van Gieson (VVG) elastic stain reveals focal disruption of dermal elastic fibers. Additional deeper sections were obtained and reviewed. COMMENT: The overall histologic features are consistent with a non-inflammatory scarring alopecia, and can be seen in an inactive scarring alopecia in the appropriate clinical setting. A background androgenetic alopecia cannot be excluded. Clinical correlation is recommended. 1 5:37 PM CDT DERMATOPATHOLOGY LABORATORY Disclaimer An external and internal positive and negative controls are appropriate for the histochemical, immunohistochemical and immunofluorescence stain(s) in this case (if any), except where stated explicitly. The performance characteristics of the stain(s) cited in this report were developed and its performance characteristic determined by the Dermatopathology Laboratory at [facility], directed by Dr. Ifrah Vallecillo. These tests need not be, and therefore are not, approved by the [place] Food and Drug Administration. The tests are used for clinical purposes. Billing Codes Specimen Charges Stain Charges 88268 1 63472 1 1 5:37 PM CDT DERMATOPATHOLOGY LABORATORY Embedded Images 1 5:37 PM CDT DERMATOPATHOLOGY LABORATORY Pathology/Cytolo gy TISSUE SPECIMEN FROM SKIN / Unknown 01/24/2021 3:33 AM CDT 01/26/2021 2:11 PM CDT Shantanu Guzman MD LAB - PATHOLOGY/CYTO LOGY ORDERABLES DERMATOPATHOLOGY LABORATORY [facility] - Department of Dermatology [facility] Medicine [address] [place] [address], [address] [phone] documented in this encounter Visit Diagnoses Not on filedocumented in this encounter
--- OUTSIDE RECORDS SUMMARY | 2024-10-17 16:42 | XMS_ITS | Encounter Summary ---
Author Organization [facility] Address [address] [place] [address]. [place], [place] [address] [place] [address] Care Team Providers Care Insurance Office Supervisor Name Role Phone Juan Francisco Carbajal MD Primary Care Provider Unava ilable Encounter Details Date Type Department Care Team (Latest Contact Info) Description 05/12/2018 Abstract [facility] , Dakota Doshi MD Social [...] on filedocumented in this encounter Care Teams Insurance Office Supervisor Relationship Specialty Start Date End Date Juan Francisco Carbajal MD PCP - General FAMILY PRACTICE 04/29/18 documented as of this encounter
--- OUTSIDE RECORDS SUMMARY | 2024-10-17 16:42 | XMS_ITS | Encounter Summary ---
Author Organization [facility] Address [address] [place] [address]. [place] [address] [place] [address] Care Team Providers Care Dna Sequencing Associate Name Role Phone Melinda Flores MD Primary Care Provider Unava ilable Reason for Visit * Reason Onset Date Comments Pre-visit Gap Closure 10/16/2018 Encounter Details Date Type Department Care Team (Late st Contact Info) Description 10/16/2018 Telephone [facility] Family & Internal Medicine [address] [phone] Melinda Flores MD Pre-visit Gap Closure Social History Tobacco Use Types Packs/Day Years Used Date Smoking Tobacco: Never Assessed Sex and Gender Information Value Date Recorded Sex Assigned at Not on file Legal Sex Male 6:51 PM CDT Gender Identity Not on file Sexual Orientation Not on file documented as of this encounter Progress Notes * Adriana Verdugo MA - 10/16/2018 1:38 PM CST [facility] [address], [facility] [phone] MELINDA FLORES MD Health Maintenance Topic Date Due ??? MU 6 MONTH BMI CHECK 1997 ??? TDAP/TD IMMUNIZATION (1 - Tdap) 2002 ??? Influenza Adult Completed ??? HPV IMMUNIZATION Aged Out Immunization History Administered Date(s) Administered ??? Influenza Adult (Generic) 07/01/2018 PHQ-9: No flowsheet data found. BMI Screening: Wt Readings from Last 1 Encounters: No data found for Wt Ht Readings from Last 1 Encounters: No data found for Ht BMI Readings from Last 1 Encounters: No data found for BMI Tobacco Screening: History Smoking Status ??? Not on file Smokeless Tobacco ??? Not on file Counseling given: Not Answered TH MANAGEMENT CONSULTANT documented in this encounter Plan of Treatment Not on file documented as of this encounter Visit Diagnoses Not on filedocumented in this encounter Care Teams Dna Sequencing Associate Relationship Specialty Start Date End Date Melinda Flores MD PCP - General FAMILY PRACTICE 04/29/18 documented as of this encounter
--- OUTSIDE RECORDS SUMMARY | 2024-10-17 16:42 | XMS_ITS | Encounter Summary ---
Author Organization [facility] Health Address [address] [facility] [place] [address] Care Team Providers Care Photographic Hand Developer Name Role Phone Unavailable Primary Care Provider Unavailabl e Encounter Details Date Type Department Care Team (Late st Contact Info) Description 06/12/2023 Lab Requisition [facility] - DermPath Lab [address] [facility] [place] [id number] Shantanu Guzman MD [address] [place] [address] Social History Tobacco Use Types [...] Priority Date/Time Associated Diagnosis Comments DERMATOPATHOLOGY Routine 06/11/2023 3:33 AM CDT documented in this encounter Results * DERMATOPATHOLOGY (06/11/2023 3:33 AM CDT) Case Report Dermatopathology Report ? Case: [id number] ? Authorizing Provider: ??Shantanu Guzman MD ?Collected: ? 06/11/2023 03:33 AM ? Ordering Location: ? [facility] DermPath Lab ? Received: ?06/12/2023 12:29 PM ? Pathologist: ? Anton Vallecillo MD ? Specimens: ?? A) - Skin, left midline posterior superior neck ? B) - Skin, right midline posterior superior neck ? C) - Skin, right abdomen ? 3 4:46 PM CDT DERMATOPATHOLOGY LABORATORY Final Diagnosis Specimen A. 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 SKIN, right abdomen: COMPOUND NEVUS WITH CONGENITAL FEATURES (D22.5) 3 4:46 PM CDT DERMATOPATHOLOGY LABORATORY Clinical History A-C: R/O Dys nevus 3 4:46 PM CDT DERMATOPATHOLOGY LABORATORY Gross Description Specimen A: Received is one formalin filled container labeled with the patient's name and designated left midline posterior superior neck. The specimen consists of a shave biopsy measuring 7x7x2 mm. Jar 0. Specimen B: Received is one formalin filled container labeled with the patient's name and designated right midline posterior superior neck. The specimen consists of a shave biopsy measuring 7x6x2 mm. Jar 0. Specimen C: Received is one formalin filled container labeled with the patient's name and designated right abdomen. The specimen consists of a shave biopsy measuring 11x8x2 mm. Jar 0. 3 4:46 PM T DERMATOPATHOLOGY LABORATORY Microscopic Description Specimen A. SKIN, left midline posterior superior neck: There are nests of melanocytes at the dermal-epidermal junction and within the dermis. Specimen B. SKIN, right midline posterior superior neck: here are nests of melanocytes at the dermal-epidermal junction and within the dermis. Specimen C. SKIN, right abdomen: There are nests of melanocytes at the dermal-epidermal junction and within the dermis. Some melanocytes are splayed between collagen bundles and are localized around adnexal structures. 3 4:46 PM T DERMATOPATHOLOGY LABORATORY Disclaimer An external and internal positive and negative controls are appropriate for the histochemical, immunohistochemical and immunofluorescence stain(s) in this case (if any), except where stated explicitly. The performance characteristics of the stain(s) cited in this report were developed and its performance characteristic determined by the Dermatopathology Laboratory at [facility], directed by Dr. Ifrah Vallecillo. These tests need not be, and therefore are not, approved by the [place] Food and Drug Administration. The tests are used for clinical purposes. Billing Codes Specimen Charges Stain Charges 78542 39903 72798 1 1 1 3 4:46 PM CDT DERMATOPATHOLOGY LABORATORY Embedded Images 3 4:46 PM CDT DERMATOPATHOLOGY LABORATORY Pathology/Cytology TISSUE SPECIMEN FROM SKIN / Unknown 06/11/2023 3:33 AM CDT 06/12/2023 12:29 PM CDT Miscellaneous samples (specimen) TISSUE SPECIMEN FROM SKIN / Unknown 06/11/2023 3:33 AM CDT 06/12/2023 12:29 PM CDT Miscellaneous samples (specimen) TISSUE SPECIMEN FROM SKIN / Unknown 06/11/2023 3:33 AM CDT 06/12/2023 12:29 PM CDT Shantanu Guzman MD LAB - PATHOLOGY/CYTO LOGY ORDERABLES DERMATOPATHOLOGY LABORATORY [facility] - Department of Dermatology [facility] Medicine [address] [place] [address], [address] [phone] documented in this encounter Visit Diagnoses Not on filedocumented in this encounter
--- OUTSIDE RECORDS SUMMARY | 2024-10-17 16:42 | XMS_ITS | Clinical Summary ---
Author Organization [facility] Address [address] [place] [address] Care Team Providers Care Barrel Stave Inspector Name Role Phone Unavailable Primary Care Provider Unavailabl e Source Comments [facility],non-owned Affiliates and Associated Physician Practices is amultiple site organization consisting of ambulatory clinics and hospital sitesin [place], [place], [place] and [place]. This disclosure is being madepursuant to the Care Everywhere program and may not contain all information available regarding this patient. Last updated 18.[facility] Allergies No known active allergies Medications Be [...] Comments Blood Pressure 122/80 12/09/2019 10:07 AM ELECTRONIC SECURITY SPECIALIST Pulse 110 12/09/2019 10:07 AM ELECTRONIC SECURITY SPECIALIST Temperature 36.7 ??C (98 ??F) 12/09/2019 10:07 AM ELECTRONIC SECURITY SPECIALIST Respiratory Rate 16 12/09/2019 10:07 AM ELECTRONIC SECURITY SPECIALIST Oxygen Saturation 97% 12/09/2019 10:07 AM ELECTRONIC SECURITY SPECIALIST Inhaled Oxygen Concentration - - Weight 108 kg (238 lb) 12/09/2019 10:07 AM ELECTRONIC SECURITY SPECIALIST Height 190.5 cm (6' 3 ) 12/09/2019 10:07 AM ELECTRONIC SECURITY SPECIALIST Body Mass Index 29.75 12/09/2019 10:07 AM ELECTRONIC SECURITY SPECIALIST Plan of Treatment Health Maintenance Due Date Last Done Comments HIV SCREENING 2010 HEPATITIS C SCREENING 05/27/2013 DTAP/TDAP/TD VACCINES (1 - Tdap) 2014 HEPATITIS B VACCINE (1 of 3 - 19+ 3-dose series) 2014 COVID-19 VACCINE (1 - 4-2 5 season) 2024 INFLUENZA VACCINE (#1) 2024 07/01/2018 DEPRESSION SCREENING 10/06/2024 ZOSTER VACCINE (1 of 2) 2045 HIB VACCINE Aged Out No longer eligi ble based on patient's age to complete this topic HPV VACCINE Aged Out No longer eligi ble based on patient's age to complete this topic MENINGOCOCCAL (Group B) VACCINE Aged Out No longer eligible based on patient's age to complete this topic MENINGOCOCCAL VACCINE Aged Out No tree maria eugenia eligible based on patient's age to complete this topic PNEUMOCOCCAL VACCINE Aged Out No long er eligible based on patient's age to complete this topic DAYRON BACON Personal/Family Son [address] [place] [phone] Dayron Bacon Personal/Family Self [address] [place] [address] [place] [address]
--- OUTSIDE RECORDS SUMMARY | 2024-10-17 16:42 | XMS_ITS | Encounter Summary ---
Author Organization [facility] Address [address] [place] [address]. [place] [address] [place] [address] Care Team Providers Care Outboard Technician Name Role Phone Juan Francisco Carbajal MD Primary Care Provider Unava ilable Encounter Details Date Type Department Care Team (Latest Contact Info) Description 04/30/2018 4:07 PM CDT - 04/30/2018 11:59 PM CDT Hospital Encounter [facility] [address] [place] [address] Juan Francisco Carbajal MD Discharge Disposition: Home or Self Care (Routine Discharge) Social History Tobacco Use Types Packs/Day Years [...] Procedure Name Priority Date/Time Associated Diagnosis Comments COMPREHENSIVE METABOLIC PANEL Routine 04/30/2018 8:15 AM CDT Rash and other nonspecific skin eruption Encounter for screening for diabetes mellitus Encounter for screening for lipoid disorders LIPID PANEL Routine 04/30/2018 8:15 AM CDT Encounter for screening for lipoid disorders CBC, AUTO, NO DIFF Routine 04/30/2018 8: 15 AM CDT Encounter for screening for diabetes mellitus Encounter for screening for lipoid disorders THYROID STIM HORMONE TSH Routine 04/30/2018 8:15 AM CDT Rash and other nonspecific skin eruption documented in this encounter Results * THYROID STIM HORMONE, TSH (04/30/2018 8:15 AM CDT) TSH 3.326 0.15 - 4.76 uIU/ML 04/30/2018 5:41 PM CDT [facility] 04/30/2018 8:15 AM CDT Juan Francisco Carbajal MD LABORATORY Final Result [facility] [address] [place] [address], * (ABNORMAL) LIPID PANEL (04/30/2018 8:15 AM CDT) CHOLESTEROL 186 <200 MG/DL 04/30/2018 5:52 PM CDT [facility] TRIGLYCERIDES 240(H) <150 MG/DL 04/30/2018 5:52 PM CDT [facility] HDL 38(L) 40 - 59 MG/DL 04/30/2018 5:52 PM CDT [facility] LDL (CALCULATED) 100(H) <100 MG/DL 04/30/20 18 5:52 PM CDT [facility] CHOL/HDL RATIO 4.9 3.00 - 5.00 04/30/2018 5:52 PM CDT [facility] 04/30/2018 8:15 AM CDT us Juan Francisco Carbajal MD LABORATORY Final Result [facility] [address] [place] [address], [place] [phone] * COMPREHENSIVE METABOLIC PANEL (04/30/2018 8:15 AM CDT) CALCIUM S/P/B 10.1 8.4 - 10.7 MG/DL 04/30/2018 5:52 PM [facility] GLUCOSE 84 70 - 139 MG/DL 04/30/2018 5:52 PM [facility] BUN 17 8.4 - 25.7 MG/DL 04/30/2018 5:52 PM [facility] CREATININE S/P/B 0.80 0.70 - 1.30 MG/DL 04/30/2018 5:52 PM [facility] EGFR NON-AFR. AMER. >90 >90 ML/MIN/1.7 3 M2 04/30/2018 5:52 PM [facility] EGFR AFR. AMER. >90 >90 ml/min/1.7 3 m2 04/30/2018 5:52 PM [facility] SODIUM S/P/B 138 136 - 145 MMOL/L 04/30/2018 5:52 PM [facility] POTASSIUM S/P/B 4.2 3.6 - 5.0 MMOL/L 04/30/2018 5:52 PM [facility] CHLORIDE S/P/B 103 98 - 113 MMOL/L 04/30/2018 5:52 PM [facility] CO2 26 20 - 30 MMOL/L 04/30/2018 5:52 PM [facility] ANION GAP 13 10 - 21 MMOL/L 04/30/2018 5:52 PM [facility] OSMOLALITY (CALC) 276 04/30/2018 5:52 PM [facility] BILIRUBIN TOTAL S/P/B 0.3 0.2 - 1.2 MG/DL 04/30/2018 5:52 PM [facility] ALKALINE PHOSPHATASE S/P/B 75 40 - 150 U/L 04/30/2018 5:52 PM [facility] AST 19 5 - 45 U/L 04/30/2018 5:52 PM CDT [facility] ALT 36 0 - 55 U/L 04/30/2018 5:52 PM CDT [facility] TOTAL PROTEIN S/P/B 7.5 6.4 - 7.9 G/DL 04/30/2018 5:52 PM CDT [facility] ALBUMIN S/P/B 4.8 3.5 - 5.2 G/DL 04/30/2018 5:52 PM CDT [facility] GLOBULIN 2.7 2.1 - 3.8 G/DL 04/30/2018 5:52 PM T [facility] 04/30/2018 8:15 AM CDT Juan Francisco Carbajal MD LABORATORY Final Result [facility] [address] [place] [address], * (ABNORMAL) CBC, AUTO, NO DIFF (04/30/2018 8:15 AM CDT) WBC 6.8 3.6 - 10.6 x10'3/uL 04/30/2018 5:07 PM T [facility] RBC 5.76(H) 4.18 - 5.51 x10'6/uL 04/30/2018 5:07 PM CDT [facility] HGB 16.4 13.4 - 17.0 G/DL 04/30/2018 5:07 PM T [facility] HCT 49.9 40.0 - 54.0 % 04/30/2018 5:07 PM T [facility] MCV 86.6 81.0 - 99.0 FL 04/30/2018 5:07 PM CDT [facility] MCH 28.5 27.0 - 34.0 PG 04/30/2018 5:07 PM CDT [facility] MCHC 32.9 32.0 - 36.0 G/DL 04/30/2018 5:07 PM CDT [facility] RDW 12.2 11.5 - 14.5 % 04/30/2018 5:07 PM CDT [facility] PLT 217 150.0 - 450.0 x10'3/uL 04/30/2018 5:07 PM CDT [facility] MPV 11.5 7.0 - 12.0 FL 04/30/2018 5:07 PM CDT [facility] 04/30/2018 8:15 AM CDT Juan Francisco Carbajal MD LABORATORY Final Result [facility] [address] [place] [address], documented in this encounter Visit Diagnoses Diagnosis Encounter for screening for diabetes mellitus Screening for diabetes mellitus Encounter for screening for lipoid disorders Screening for lipoid disorders Rash and other nonspecific skin eruption documented in this encounter Care Teams Outboard Technician Relationship Specialty Start Date End Date Juan Francisco Carbajal MD PCP - General FAMILY PRACTICE 04/29/18 documented as of this encounter
--- OUTSIDE RECORDS SUMMARY | 2024-10-17 16:42 | XMS_ITS | Encounter Summary ---
Author Organization [facility] Address [address] [place] [address]. [place] [address] [place] [address] Care Team Providers Care Sales Office Administrator Name Role Phone Melinda Flores MD Primary Care Provider Unava ilable Encounter Details Date Type Department Care Team (Latest Contact Info) Description 04/29/2018 Abstract [facility] Melinda Flores MD Social [...] Mass Index 29.77 04/29/2018 2:27 PM CDT documented in this encounter Progress Notes * Melinda Flores MD - 04/29/2018 8:03 PM CDT Message normal x-ray of the cervical and thoracic spine Verified Results XR THOR SPINE 3V [id number] 04:30PM Melinda Flores Test Name Result Flag Reference XR THOR SPINE 3V (Report) Examination: XR THOR SPINE 3V Exam time: [...] 04/29/2018 4:51 PM Order Doctor: MELINDA FLORES pt notified in office today. BD/PLATEMAN Signatures Electronically signed by : Thalia Qureshi, ; Apr 30 2018 8:38AM WALKING DRAGLINE OPERATOR (Author) ING DRAGLINE OPERATOR * Melinda Flores MD - 04/29/2018 3:00 PM CDT Reason For Visit Reason For Visit: Acute Visit Chief Complaint Back pain History of Present Illness Dayron Cardozo is a pleasant 22 years old gentleman who attends this clinic visit reporting musculoskeletal pain affecting the upper back and cervical spine. No history of trauma. Duration of symptom isone day. He wonders if it is related to posture in bed. Severity of discomfort today is 2/10. Aggravated by turning his head and relieved by staying still. Patient denies any headache, no vision probl ems, no chest pain, no shortness of breath, no pedal swelling, no fever, no weight loss, no night sweats. 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 Review of Systems As in HPI. Active Problems 1. Rash (782.1) (R21) Surgical History 1. History of Oral Surgery Tooth Extraction Showell Tooth Family History Mother 1. Family history of hypertension (V17.49) (Z82.49) Maternal Grandmother 2. Family history of Alzheimer's disease (V17.2) (Z82.0) 3. Family history of diabetes mellitus (V18.0) (Z83.3) Paternal Grandmother 4. Family history of Alzheimer's disease (V17.2) (Z82.0) Maternal Grandfather 5. Family history of Alzheimer's disease (V17.2) (Z82.0) Paternal Grandfather 6. Family history of Alzheimer's disease (V17.2) (Z82.0) Social History ?? Always uses seat belt ?? Caffeine use (V49.89) (F15.90) ?? Exercises occasionally (V49.89) (Z78.9) ?? Former smoker (V15.82) (Z87.891) ?? No illicit drug use ?? Occasional alcohol use Current Meds 1. No Reported Medications Recorded KYRIE = N; ; Last Updated By: Bambi Napoles; 04/27/2018 10:06:41 AM Vitals Recorded: [id number] 02:27PM Temperature 97.4 F Heart Rate 70 Systolic 125 Diastolic 78 O2 Saturation 98 Height 6 ft 4 in Weight 244 lb 9 oz BMI Calculated 29.77 BSA Calculated 2.41 Physical Exam Constitutional General appearance: No acute distress, well appearing and well nourished. Pulmonary Respiratory effort: No increased work of breathing or signs of respiratory distress. Auscultation of lungs: Clear to auscultation. Cardiovascular Palpation of heart: Normal PMI, no thrills. Auscultation of heart: Normal rate and rhythm, normal S1 and S2, without murmurs. Examination of extremities for edema and/or varicosities: Normal. MUSCULOSKELETAL EXAM: there is no muscle atrophy, no hypertrophy, no fasciculations. There is reproducible tenderness to palpation over the cervical spine and paraspinal muscles of the neck. No neck stiffness. Spurling's sign is negative as patient extends his neck and rotates neck towards the right and left. Deep tendon reflexes both upper extremities 2+. Muscle power normal both upper extremities. NEUROLOGIC EXAM: No focal neurologic deficit. Cranial nerves II --XII intact. Assessment 1. Encounter for preventive health examination (V70.0) (Z00.00) 2. Cervicalgia (723.1) (M54.2) 3. Pain in thoracic spine (724.1) (M54.6) 4. Rash (782.1) (R21) Plan #1. Musculoskeletal pain affecting the neck and cervical spine: I ordered x- rays. I advised him to use NSAIDs with food. I referred him to physical therapy. Return to clinic in 3 weeks. #2. Health care maintenance: He declines to have HIV antibody test. #3. Rash of the back of his head which he has had for months: I previously referred him to see a senior security analyst. 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 #4. Return to clinic 3 weeks for reevaluation or sooner if needed. Signatures Electronically signed by : Melinda Flores M.D.; Apr 29 2018 3:27PM WALKING DRAGLINE OPERATOR (Author) ING DRAGLINE OPERATOR documented in this encounter Plan of Treatment Not on file documented as of this encounter Visit Diagnoses Not on filedocumented in this encounter Care Teams Sales Office Administrator Relationship Specialty Start Date End Date Melinda Flores MD PCP - General FAMILY PRACTICE 04/29/18 documented as of this encounter
--- OUTSIDE RECORDS SUMMARY | 2024-10-17 16:42 | XMS_ITS | Patient Health Summary ---
Author Organization [facility] Address [address] [place] [address] Care Team Providers Care Gold Assayer Name Role Phone Unavailable Primary Care Provider Unavailabl e Note from [facility],non-owned Affiliates and Associated Physician Practices is amultiple site organization consisting of ambulatory clinics and hospital sitesin [place], [place], [place] and [place]. This disclosure is being madepursuant to the Care Everywhere program and may not contain all information available regarding this patient. Last updated 18.[facility] Allergies No known active allergies Medications Be [...] Comments Blood Pressure 122/80 12/09/2019 10:07 AM AUTOMATED WEAVER Pulse 110 12/09/2019 10:07 AM AUTOMATED WEAVER Temperature 36.7 ??C (98 ??F) 12/09/2019 10:07 AM AUTOMATED WEAVER Respiratory Rate 16 12/09/2019 10:07 AM AUTOMATED WEAVER Oxygen Saturation 97% 12/09/2019 10:07 AM AUTOMATED WEAVER Inhaled Oxygen Concentration - - Weight 108 kg (238 lb) 12/09/2019 10:07 AM AUTOMATED WEAVER Height 190.5 cm (6' 3 ) 12/09/2019 10:07 AM AUTOMATED WEAVER Body Mass Index 29.75 12/09/2019 10:07 AM AUTOMATED WEAVER Procedures * DERMATOPATHOLOGY(Performed 06/11/2023) * DERMATOPATHOLOGY(Performed 01/24/2021) * STREP A SCREEN - POINT OF CARE (AMB) STL(Performed 12/09/2019) Performed for Influenza B * INFLUENZA A+B - POINT OF CARE (AMB)(Performed 12/09/2019) Performed for Influenza B * STREP A SCREEN - POINT OF CARE (AMB) STL(Performed 12/23/2016) Performed for Tonsillitis * CULTURE THROAT(Performed 12/23/2016) Performed for Tonsillitis * DERMATOPATHOLOGY(Performed 06/18/2016) * DERMATOPATHOLOGY(Performed 04/12/2014) * DERMATOPATHOLOGY(Performed 10/31/2011) Results * DERMATOPATHOLOGY (06/11/2023 3:33 AM CDT) Only the most recent of5 resultswithin the time period is included. Case Report Dermatopathology Report ? Case: [id number] ? Authorizing Provider: ??Shantanu Guzman MD ?Collected: ? 06/11/2023 03:33 AM ? Ordering Location: ? [facility] ? Received: ?06/12/2023 12:29 PM ? Pathologist: ? Anton Vallecillo MD ? Specimens: ?? A) - Skin, left midline posterior superior neck ? B) - Skin, right midline posterior superior neck ? C) - Skin, right abdomen ? 3 4:46 PM T DERMATOPATHOLOGY LABORATORY Final Diagnosis Specimen A. 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 SKIN, right abdomen: COMPOUND NEVUS WITH CONGENITAL FEATURES (D22.5) 3 4:46 PM [facility] DERMATOPATHOLOGY LABORATORY Clinical History A-C: R/O Dys nevus 3 4:46 PM [facility] DERMATOPATHOLOGY LABORATORY Gross Description Specimen A: Received [...] 11x8x2 mm. Jar 0. 3 4:46 PM [facility] DERMATOPATHOLOGY LABORATORY Microscopic Description Specimen A. SKIN, [...] localized around adnexal structures. 3 4:46 PM CDT DERMATOPATHOLOGY LABORATORY Disclaimer An external and internal positive and negative controls are appropriate for the histochemical, immunohistochemical and immunofluorescence stain(s) in this case (if any), except where stated explicitly. The performance characteristics of the stain(s) cited in this report were developed and its performance characteristic determined by the Dermatopathology Laboratory at [facility], directed by Dr. Ifrah Vallecillo. These tests need not be, and therefore are not, approved by the [place] Food and Drug Administration. The tests are used for clinical purposes. Billing Codes Specimen Charges Stain Charges 03349 [id number] 1 1 1 3 4:46 PM CDT [...] LAB - PATHOLOGY/CYTO LOGY ORDERABLES DERMATOPATHOLOGY LABORATORY [facility] Department of Dermatology Formerly [facility] Medicine [address] [place] [address], [address] [phone] * (ABNORMAL) STREP A SCREEN - POINT OF CARE (AMB) STL (12/09/2019) Only the most recent of2 resultswithin the time period is included. Strep A Rapid POCT Positive(A) Negative Strep A Internal Control Present Lot # [id number] Expiration Date 06/05/2021 Throat ENTIRE THROAT (SURFACE REGION OF NECK) / Unknown 12/09/2019 Lena Vance APRN-MANAGER AREA LAB - POINT OF CA RE ORDERABLES * (ABNORMAL) INFLUENZA A+B - POINT OF CARE (AMB) (12/09/2019) Influenza A Antigen Rapid Negative Negative Influenza B Antigen Rapid Positive(A) Negative Influenza Internal Control positive NEGATIVE - POSITIVE Influenza Lot Number [id number] Influenza Expiration Date 09/10/2021 Other NASOPHARYNGEAL SWAB / Unknown 12/09/2019 Lena Vance RECEPTION AGENT-MANAGER AREA LAB - POINT OF CA RE ORDERABLES * CULTURE THROAT (12/23/2016 11:06 AM CDT) Culture [facility] Comment: ??CULTURE, THROAT ?MICRO NUMBER: ?[id number] ??TEST STATUS: ? FINAL ??SPECIMEN SOURCE: ?? THROAT ??SPECIMEN QUALITY: ??ADEQUATE ??RESULT: ?No oropharyngeal pathogens recovered. Test Performed at: [facility] ??[id number] DENICE WYNN MD Microbiology ENTIRE THROAT (SURFACE REGION OF NECK) / Unknown 12/23/2016 11:06 AM CDT 12/24/2016 2:02 AM CDT Nayely Ruffin APRN-MANAGER AREA LAB - MICROBI OLOGY ORDERABLES [address] [address]
--- OUTSIDE RECORDS SUMMARY | 2024-10-17 16:42 | XMS_ITS | Encounter Summary ---
Author Organization [facility] Address [facility] [facility] [place] [address] [place] [address] Care Team Providers Care Anthropology And Archeology Instructor Name Role Phone Melinda Flores MD Primary Care Provider Unava ilable Encounter Details Date Type Department Care Team (Latest Contact Info) Description 04/29/2018 Abstract [facility] Medical Group Melinda Flores MD [...] Name Priority Date/Time Associated Diagnosis Comments XR CERV SPINE W OBL 5V Routine 04/29/2018 4:30 PM CDT documented in this encounter Results * XR CERV SPINE W OBL 5V (04/29/2018 4:30 PM CDT) Anatomical Region Laterality Modality Spine Radiographic Natalia ging 04/29/2018 4:30 PM CDT 04/29/2018 4:30 PM CDT Narrative 04/29/2018 4:55 PM CDT Examination: XR CERV SPINE W OBL 5V Exam time: 04/29/2018 4:20 PM Clinical history: Neck pain, no history of trauma Comparison: None Technique: AP, lateral and odontoid views cervical spine Findings: Normal craniovertebral junction. Cervical vertebral bodies in good alignment with straightening of the normal cervical lordosis. Cervical vertebral body heights and disc spaces are well-maintained. No prevertebral soft tissue swelling. No acute fracture or focal bone destructive lesion. IMPRESSION: 1) No significant cervical spine abnormality demonstrated. Interpreted By: Primo Tan MD, 04/29/2018 4:53 PM Order Doctor: MELINDA FLORES Procedure Note Dakota Freitas MD - 03/24/2019 Examination: XR CERV SPINE W OBL 5V Exam time: 04/29/2018 4:20 PM Clinical history: Neck pain, no history of trauma Comparison: None Technique: AP, lateral and odontoid views cervical spine Findings: Normal craniovertebral junction. Cervical vertebral bodies in good alignment with straightening of the normal cervical lordosis.Cervical vertebral body heights and disc spaces are well-maintained. Noprevertebral soft tissue swelling. No acute fracture or focal bone destructivelesion. IMPRESSION: 1) No significant cervical spine abnormality demonstrated. Interpreted By: Primo Tan MD, 04/29/2018 4:53 PM Order Doctor: MELINDA FLORES Melinda Flores MD GENERAL IMAGING Final Result documented in this encounter Visit Diagnoses Not on filedocumented in this encounter Care Teams Anthropology And Archeology Instructor Relationship Specialty Start Date End Date Melinda Flores MD PCP - General FAMILY PRACTICE 04/29/18 documented as of this encounter
--- OUTSIDE RECORDS SUMMARY | 2024-10-17 16:42 | XMS_ITS | Encounter Summary ---
Author Organization [facility] Address [facility] [facility] [place] [address] [place] [address] Care Team Providers Care Pierce And Shave Press Operator Name Role Phone Melinda Flores MD Primary Care Provider Unava ilable Encounter Details Date Type Department Care Team (Latest Contact Info) Description 04/29/2018 4:15 PM CDT - 04/29/2018 11:59 PM CDT Hospital Encounter [facility] Diagnostic Imaging [address] [place] [address] Melinda Flores MD Discharge Disposition: Home or Self Care [...] Comments XR THOR SPINE 3V Routine 04/29/2018 4:33 PM CDT Thoracic back pain XR CERV SPINE W OBL 5V Routine 04/29/2018 4:33 PM CDT Cervicalgia documented in this encounter Results * XR THOR SPINE 3V (04/29/2018 4:33 PM CDT) Anatomical Region Laterality Modality Spine Radiographic Natalia ging 04/29/2018 4:51 PM CDT Impressions 04/29/2018 4:52 PM CDT IMPRESSION: 1) No acute thoracic spine abnormality is demonstrated. Interpreted By: Primo Tan MD, 04/29/2018 4:51 PM Order Doctor: MELINDA FLORES Narrative 04/29/2018 4:52 PM CDT Examination: XR THOR SPINE 3V [...] spine fracture or focal bone destructive lesion. Procedure Note Primo Tan MD - 04/29/2018 Examination: XR THOR SPINE 3V Exam time: [...] Melinda Flores MD GENERAL IMAGING Final Result * XR CERV SPINE W OBL 5V (04/29/2018 4:33 PM CDT) Anatomical Region Laterality Modality Spine Radiographic Natalia ging 04/29/2018 4:53 PM CDT Impressions 04/29/2018 4:54 PM CDT IMPRESSION: 1) No significant cervical spine abnormality demonstrated. Interpreted By: Primo Tan MD, 04/29/2018 4:53 PM Order Doctor: MELINDA FLORES Narrative 04/29/2018 4:54 PM CDT Examination: XR CERV SPINE W [...] acute fracture or focal bone destructive lesion. Procedure Note Primo Tan MD - 04/29/2018 Examination: XR CERV SPINE W OBL 5V [...] 04/29/2018 4:53 PM Order Doctor: MELINDA FLORES us Melinda Flores MD GENERAL IMAGING Final Result documented in this encounter Visit Diagnoses Diagnosis Cervicalgia Thoracic back pain Pain in thoracic spine documented in this encounter Care Teams Pierce And Shave Press Operator Relationship Specialty Start Date End Date Melinda Flores MD PCP - General FAMILY PRACTICE 04/29/18 documented as of this encounter
--- OUTSIDE RECORDS SUMMARY | 2024-10-17 16:42 | XMS_ITS | Encounter Summary ---
Author Organization [facility] Address [address] [place] [address]. [place], [place] [address] [place] [address] Care Team Providers Care Hospitalist Name Role Phone Juan Francisco Carbajal MD Primary Care Provider Unava ilable Encounter Details Date Type Department Care Team (Latest Contact Info) Description 03/12/2018 Abstract [facility] Medical Group Social History Tobacco Use Types [...] on filedocumented in this encounter Care Teams Hospitalist Relationship Specialty Start Date End Date Juan Francisco Carbajal MD PCP - General FAMILY PRACTICE 04/29/18 documented as of this encounter
--- OUTSIDE RECORDS SUMMARY | 2024-10-17 16:42 | XMS_ITS | Encounter Summary ---
Author Organization [facility] Address [facility] [facility] [place] [address] Care Team Providers Care Research Microbiologist Name Role Phone Unavailable Primary Care Provider Unavailabl e Reason for Visit * Reason Onset Date Comments Follow-up 12/12/2019 Encounter Details Date Type Department Care Team (Late st Contact Info) Description 12/12/2019 Telephone [facility] [address] [id number] Provider, Kelvin [facility] Follow-up Social History Tobacco Use Types Packs/Day Years Used Date Smoking Tobacco: Never Smokeless Tobacco: Never Alcohol Use Standard Drinks/Week Comments Yes 0 (1 standard drink = 0.6 oz pur e alcohol) Sex and Gender Information Value Date Recorded Sex Assigned at Not on file Gender Identity Not on file Sexual Orientation Not on file documented as of this encounter Miscellaneous Notes * Telephone Encounter - Sarah Conner - 12/12/2019 10:10 AM CDT Courtesy follow-up phone call made to patient. Message left advising patient to call [facility] [phone] if they have any questions or concerns. Sarah Conner 12/12/2019 10:13 AM documented in this encounter Plan of Treatment Not on file documented as of this encounter Visit Diagnoses Not on filedocumented in this encounter
--- OUTSIDE RECORDS SUMMARY | 2024-10-17 16:42 | XMS_ITS | Encounter Summary ---
Author Organization [facility] Address [address] [place] [address]. [place], [place] [id number] [place] [address] Care Team Providers Care Spanish Instructor Name Role Phone Juan Francisco Carbajal MD Primary Care Provider Unava ilable Encounter Details Date Type Department Care Team (Latest Contact Info) Description 08/11/2018 Scan [facility] Medical Group , Dakota Doshi [...] on filedocumented in this encounter Care Teams Spanish Instructor Relationship Specialty Start Date End Date Juan Francisco Carbajal MD PCP - General FAMILY PRACTICE 04/29/18 documented as of this encounter
--- OUTSIDE RECORDS SUMMARY | 2024-10-17 16:42 | XMS_ITS | Encounter Summary ---
Author Organization [facility] Address [address] [place] [address]. [place] [address] [place] [address] Care Team Providers Care Truck Repair Service Estimator Name Role Phone Juan Francisco Carbajal MD Primary Care Provider Kit ilable Encounter Details Date Type Department Care Team (Late st Contact Info) Description 04/27/2018 Abstract [facility] Medical Group Family & Sports Medicine - [facility] [address] [facility], [place] [address] Juan Francisco Carbajal MD Social History Tobacco Use Types Packs/Day Years Used Date Smoking Tobacco: Never Assessed Sex and Gender Information Value Date Recorded Sex Assigned at Not on file Legal Sex Male 6:51 PM CDT Gender Identity Not on file Sexual Orientation Not on file documented as of this encounter Last Filed Vital Signs Vital Sign Reading Time Taken Comments Blood Pressure 123/74 04/27/2018 10:11 AM CDT Pulse 77 04/27/2018 10:11 AM CDT Temperature - - Respiratory Rate - - Oxygen Saturation - - Inhaled Oxygen Concentration - - Weight 110 kg (242 lb 9 oz) 04/27/2018 10:11 AM CDT Height 193 cm (6' 4 ) 04/27/2018 10:11 AM CDT Body Mass Index 29.53 04/27/2018 10:11 AM CDT documented in this encounter Progress Notes * Juan Francisco Carbajal MD - 04/27/2018 10:20 AM CDT Reason For Visit New Patient Visit Chief Complaint New patient. patient willing to have a complete physical exam today. History of Present Illness Dayron Cardozo is a pleasant 22 years old gentleman who attends this clinic visit to establish care with a new primary care provider. Patient informs me that his previous primary care provider is Dr Rojas in [facility]. He does not have any chronic medical problems. No hypertension, no diabetes, no bronchial asthma, no seizure disorder. Patient denies any headache, no vision problems, no chest pain, no shortness of breath, no pedal swelling, no fever, no weight loss, no night sweats, no joint pain, no joint swelling, no nausea, no vomiting, no diarrhea, no constipation, no urinary symptoms. He reports a rash of the back of his head which he has had for months. 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 Review of Systems Constitutional: negative. Head and Face: negative. Eyes: negative. ENT: negative. Cardiovascular: negative. Respiratory: negative. Gastrointestinal: negative. Genitourinary: negative. Musculoskeletal: negative. Neurological: negative. Psychiatric: negative. Endocrine: negative. Hematologic and Lymphatic: negative. Surgical History 1. History of Oral Surgery Tooth Extraction [place] Tooth Family History Mother 1. Family history [...] Bambi Napoles; 04/27/2018 10:06:41 AM Vitals Recorded: [id number] 10:11AM Temperature 96.9 F Heart Rate 77 Systolic 123 Diastolic 74 O2 Saturation 99 Height 6 ft 4 in Weight 242 lb 9 oz BMI Calculated 29.53 BSA Calculated 2.4 Physical Exam Constitutional General appearance: No acute distress, well appearing and well nourished. Eyes Conjunctiva and lids: No swelling, erythema, or discharge. Pupils and irises: Equal, round and reactive to light. Ears, Nose, Mouth, and Throat External inspection of ears and nose: Normal. Otoscopic examination: Tympanic membrane translucent with normal light reflex. Canals patent without erythema. Oropharynx: Normal with no erythema, edema, exudate or lesions. Pulmonary Respiratory effort: No increased work of breathing or signs of respiratory distress. Auscultation of lungs: Clear to auscultation. Cardiovascular Palpation of heart: Normal PMI, no thrills. Auscultation of heart: Normal rate and rhythm, normal S1 and S2, without murmurs. Examination of extremities for edema and/or varicosities: Normal. Abdomen Abdomen: Non-tender, no masses. Liver and spleen: No hepatomegaly or splenomegaly. Musculoskeletal Gait and station: Normal. Digits and nails: Normal without clubbing or cyanosis. 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 Neurologic Cranial nerves: Cranial nerves 2-12 intact. Reflexes: 2+ and symmetric. Psychiatric Orientation to person, place and time: Normal. Mood and affect: Normal. Assessment 1. Encounter for preventive health examination (V70.0) (Z00.00) 2. Family history of hypertension (V17.49) (Z82.49) : Mother 3. History of Oral Surgery Tooth Extraction [place] Tooth 4. Family history of diabetes mellitus (V18.0) (Z83.3) : Maternal Grandmother 5. Family history of Alzheimer's disease (V17.2) (Z82.0) : Maternal Grandmother, Paternal Grandmother, Maternal Grandfather, Paternal Grandfather 6. Occasional alcohol use 7. Always uses seat belt 8. Caffeine use (V49.89) (F15.90) 9. Former smoker (V15.82) (Z87.891) 10. Exercises occasionally (V49.89) (Z78.9) 11. No illicit drug use 12. Rash (782.1) (R21) 13. Encounter for screening for HIV (V73.89) (Z11.4) 14. Screening for diabetes mellitus (V77.1) (Z13.1) 15. Screening cholesterol level (V77.91) (Z13.220) Plan #1. Health care maintenance/cholesterol screen/diabetes screen/need HIV test: Patient will return to the office later this week for fasting labs. He declines to have HIV antibody test. #2. Rash of the back of his head which he has had for months: I have referred him to see a manager chinese. 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 #3. Return to clinic 3 to 6 months for reevaluation. Signatures Electronically signed by : Juan Francisco Carbajal M.D.; Apr 27 2018 10:51AM TNT LINE SUPERVISOR (Author) LINE SUPERVISOR documented in this encounter Plan of Treatment Not on file documented as of this encounter Procedures Procedure Name Priority Date/Time Associated Diagnosis Comments COMPREHENSIVE METABOLIC PANEL Routine 04/30/2018 8:15 AM CDT LIPID PANEL Routine 04/30/2018 8:15 AM CDT CBC, AUTO, NO DIFF Routine 04/30/2018 8: 15 AM CDT THYROID STIM HORMONE TSH Routine 04/30/2018 8:15 AM CDT documented in this encounter Results * COMPREHENSIVE METABOLIC PANEL (04/30/2018 8:15 AM CDT) SODIUM S/P/B 138 136 - 145 MMOL/L [facility] TO EPIC CONVERSION POTASSIUM S/P/B 4.2 3.6 - 5.0 MMOL/L [facility] TO EPIC CONVERSION CHLORIDE S/P/B 103 98 - 113 MMOL/L [facility] TO EPIC CONVERSION CO2 26 20 - 30 MMOL/L [facility] TO EPIC CONVERSION ANION GAP 13 10 - 21 MMOL/L [facility] TO EPIC CONVERSION OSMOLALITY (CALC) 276 [facility] TO EPIC CONVERSION CREATININE S/P/B 0.80 0.70 - 1.30 MG/DL [facility] TO EPIC CONVERSION BUN 17 8.4 - 25.7 MG/DL [facility] TO EPIC CONVERSION EGFR NON-AFR. AMER. >90 >90 ML/MIN/1.7 3 M2 [facility] TO EPIC CONVERSION EGFR AFR. AMER. >90 >90 ml/min/1.7 3 m2 [facility] TO EPIC CONVERSION GLUCOSE 84 70 - 139 MG/DL [facility] TO EPIC CONVERSION CALCIUM S/P/B 10.1 8.4 - 10.7 MG/DL [facility] TO EPIC CONVERSION BILIRUBIN TOTAL S/P/B 0.3 0.2 - 1.2 MG/DL [facility] TO EPIC CONVERSION AST 19 5 - 45 U/L [facility] TO EPIC CONVERSION ALT 36 0 - 55 U/L [facility] TO EPIC CONVERSION ALKALINE PHOSPHATASE S/P/B 75 40 - 150 U/L [facility] TO EPIC CONVERSION TOTAL PROTEIN S/P/B 7.5 6.4 - 7.9 G/DL [facility] TO EPIC CONVERSION ALBUMIN S/P/B 4.8 3.5 - 5.2 G/DL [facility] TO EPIC CONVERSION GLOBULIN 2.7 2.1 - 3.8 G/DL [facility] TO EPIC CONVERSION 04/30/2018 8:1 5 AM CDT 04/30/2018 8:15 AM CDT Narrative [facility] TO EPIC CONVERSION - 04/30/2018 5:52 PM CDT Result Communication: No patient communication needed at this time Juan Francisco Carbajal MD LABORATORY Final Result [facility] TO EPIC CONVERSION * (ABNORMAL) LIPID PANEL (04/30/2018 8:15 AM CDT) [facility] CHOLESTEROL 186 <200 MG/DL [facility] P TO EPIC CONVERSION TRIGLYCERIDES 240(H) <150 MG/DL [facility] OUP TO EPIC CONVERSION HDL 38(L) 40 - 59 MG/DL [facility] TO EPIC CONVERSION LDL (CALCULATED) 100(H) <100 MG/DL [place] [facility] TO EPIC CONVERSION CHOL/HDL RATIO 4.9 3.00 - 5.00 [facility] TO EPIC CONVERSION 04/30/2018 8:15 AM CDT 04/30/2018 8:15 AM CDT Narrative [facility] TO EPIC CONVERSION - 04/30/2018 5:52 PM CDT Result Communication: No patient communication needed at this time Juan Francisco Carbajal MD LABORATORY Final Result [facility] TO EPIC CONVERSION * THYROID STIM HORMONE, TSH (04/30/2018 8:15 AM CDT) TSH 3.326 0.15 - 4.76 uIU/ML [facility] TO EPIC CONVERSION 04/30/2018 8:15 AM CDT 04/30/2018 8:15 AM CDT Narrative [facility] TO EPIC CONVERSION - 04/30/2018 5:41 PM CDT Result Communication: No patient communication needed at this time Juan Francisco Carbajal MD LABORATORY Final Result Performing Organization Address [facility] Co de Phone Number [facility] TO EPIC CONVERSION * (ABNORMAL) CBC, AUTO, NO DIFF (04/30/2018 8:15 AM CDT) WBC 6.8 3.6 - 10.6 x10'3/uL [facility] TO EPIC CONVERSION RBC 5.76(H) 4.18 - 5.51 x10'6/uL [facility] TO EPIC CONVERSION HGB 16.4 13.4 - 17.0 G/DL [facility] TO EPIC CONVERSION HCT 49.9 40.0 - 54.0 % [facility] TO EPIC CONVERSION MCV 86.6 81.0 - 99.0 FL [facility] TO EPIC CONVERSION MCH 28.5 27.0 - 34.0 PG [facility] TO EPIC CONVERSION MCHC 32.9 32.0 - 36.0 G/DL [facility] TO EPIC CONVERSION RDW 12.2 11.5 - 14.5 % [facility] TO EPIC CONVERSION PLT 217 150.0 - 450.0 x10'3/uL [facility] TO EPIC CONVERSION MPV 11.5 7.0 - 12.0 FL [facility] TO EPIC CONVERSION 04/30/2018 8:15 AM CDT 04/30/2018 8:15 AM CDT Narrative [facility] TO EPIC CONVERSION - 04/30/2018 5:07 PM CDT Result Communication: Call patient with results Juan Francisco Carbajal MD LABORATORY Final Result [facility] TO EPIC CONVERSION documented in this encounter Visit Diagnoses Not on filedocumented in this encounter Care Teams Truck Repair Service Estimator Relationship Specialty Start Date End Date Juan Francisco Carbajal MD PCP - General FAMILY PRACTICE 04/29/18 documented as of this encounter
--- OUTSIDE RECORDS SUMMARY | 2024-10-17 16:42 | XMS_ITS | Encounter Summary ---
Author Organization [facility] Address [address] [place] [address] Care Team Providers Care Top Inventory Control Executive Name Role Phone Unavailable Primary Care Provider Unavailabl e Reason for Visit * Reason Comments Sore Throat very very sore throa t started yesterday with chills, bilateral ear pressure, congestion. Encounter Details Date Type Department Care Team (Late st Contact Info) Description 12/23/2016 10:20 AM CDT Office Visit [facility] AT [address] [address] Provider, Kelvin Exp Gurdon Tonsillitis (Primary Dx); Impacted cerumen of right ear Social History Tobacco Use Types Packs/Day Years Used Date Smoking Tobacco: Never Sex and Gender Information Value Date Recorded Sex Assigned at Not on file Gender Identity Not on file Sexual Orientation Not on file documented as of this encounter Last Filed Vital Signs Vital Sign Reading Time Taken Comments Blood Pressure 122/76 12/23/2016 10:32 AM CDT Pulse 103 12/23/2016 10:32 AM CDT Temperature 37.7 ??C (99.9 ??F) 12/23/2016 10:32 AM C DT Respiratory Rate 16 12/23/2016 10:32 AM CDT Oxygen Saturation 96% 12/23/2016 10:32 AM CDT Inhaled Oxygen Concentration - - Weight 99.8 kg (220 lb) 12/23/2016 10:32 AM CDT Height 190.5 cm (6' 3 ) 12/23/2016 10:32 AM CDT Body Mass Index 27.5 12/23/2016 10:32 AM CDT documented in this encounter Patient Instructions * Patient Instructions* Nayely Ruffin APRN-CNP - 12/23/2016 11:08 AM CDT Images from the original note were not included. Tonsillitis WHAT YOU NEED TO KNOW: What is tonsillitis? Tonsillitis is inflammation of your tonsils. Tonsils are the lumps of tissue on both sides of the back of your throat. Tonsils are part of your immune system. They help you fightinfections. Recurrent tonsillitis is when you have tonsillitis many times in 1 year. Chronic tonsillitis is when you have a sore throat that lasts 3 months or longer. What causes tonsillitis? Tonsillitis may be caused by a bacterial or a viral infection. Tonsillitiscan spread from an infected person to others through coughing, sneezing, or touching. It can also spread through kissing or sharing food and drinks. What are the signs and symptoms of tonsillitis? ?? Severe sore throat ?? Red, swollen tonsils ?? Painful swallowing ?? Fever and chills ?? Bad breath ?? White spots on the tonsils How is tonsillitis diagnosed? Your healthcare provider will examine your ears, nose, and throat. Hewill ask about your symptoms. You may need any of the following: ?? A throat culture may show which germ is causing your illness. A cotton swab is rubbed against the back of your throat. ?? Blood tests may show if you have an infection caused by bacteria or a virus. How is tonsillitis treated? Treatment may decrease your signs and symptoms. Treatment also may lower the number of times that you get tonsillitis in a year. You may need any of the following: ?? Acetaminophen decreases pain and fever. It is available without a doctor's order. Ask how much to take and how often to take it. Follow directions. Acetaminophen can cause liver damage if not taken correctly. ?? NSAIDs , such as ibuprofen, help decrease swelling, pain, and fever. This medicine is available with or without a doctor's order. NSAIDs can cause stomach bleeding or kidney problems in certain people. If you take blood thinner medicine, always ask your healthcare provider if NSAIDs are safe foryou. Always read the medicine label and follow directions. ?? Antibiotics help treat a bacterial infection. ?? A tonsillectomy is surgery to remove your tonsils. You may need surgery if you have chronic or recurrent tonsillitis. Surgery may also be done if antibiotics are not working. How can I manage my symptoms? ?? Rest when you feel it is needed. Slowly start to do more each day. Return to your daily activities as directed. ?? Drink liquids as directed. You may need to drink more liquid than usual to prevent dehydration. Ask how much liquid to drink each day and which liquids are best for you. ?? Gargle with warm salt water. This may help decrease throat pain. Mix 1 teaspoon of salt in 8 ounces of warm water. Ask how often you should do this. ?? Prevent the spread of germs. Wash your hands often. Do not share food or drinks with anyone. Youmay be able to return to work when you feel better and your fever is gone for at least 24 hours. Call 911 for the following: ?? You have trouble breathing because your tonsils are swollen. When should I contact my healthcare provider? ?? You have a fever. ?? Your pain gets worse or does not get better after you take pain medicine. ?? Your sore throat is not better after you have finished antibiotic treatment. ?? You have trouble sleeping and wake up trying to catch your breath. ?? You have questions or concerns about your condition or care. CARE AGREEMENT: You have the right to help plan your care. Learn about your health condition and how it may be treated. Discuss treatment options with your caregivers to decide what care you want to receive. You always have the right to refuse treatment. The above information is an nursing aide only. It is not intended as medical advice for individual conditions or treatments. Talk to your doctor, nurse or pharmacist before following any medical regimen to see if it is safe and effective for you. ?? 2016 [employer]. Information is for End User's use only and may not be sold, redistributed or otherwise used for commercial purposes. All illustrations and images included in CareNotes?? are the copyrighted property of [employer] or [employer]. Warm salt water gargles, warm soups and decaffeinated beverages, chloraseptic spray, lozenges, ice chips, popsicles and honey for soothing sore throat. Increase water intake and rest. Ibuprofen or Tylenol for pain or fever. Replace toothbrush after 3 days. Add humidity to help with throat and nasal dryness. We will call with culture results in 2-4 days. Can use otc Debrox drops or equal parts of vinegar, peroxide and water-4 drops once or twice weeklyto soften ear wax. documented in this encounter Progress Notes * Cesario Portillo APRN-CNP - 12/26/2016 9:59 AM CDT Called patient. No answer. Left message to return call for results. * Nayely Ruffin APRN-CNP - 12/23/2016 10:59 AM CDT [facility] Chief Complaint Patient presents with ??? Sore Throat very very sore throat started yesterday with chills, bilateral ear pressure, congestion. SUBJECTIVE: General The history is provided by the patient. This is a new problem. The current episode started yesterday. The problem occurs constantly. The problem has not changed since onset.The pain is at a severity of 10/10. Body Location: very very sore throat started yesterday with chills, bilateral ear pressure, congestion. Treatments tried: motrin. The treatment provided mild relief. Past Medical History Diagnosis Date ??? NEGATIVE PAST MEDICAL HISTORY - SEE PROBLEM LIST No current outpatient prescriptions on file prior to visit. No current facility-administered medications on file prior to visit. Past Surgical History Procedure Laterality Date ??? Negative surgical history History Social History ??? Marital status: Single Spouse name: N/A ??? Number of children: N/A ??? Years of education: N/A Occupational History ??? Not on file. Social History Main Topics ??? Smoking status: Never Smoker ??? Smokeless tobacco: Not on file ??? Alcohol use: Not on file ??? Drug use: Not on file ??? Sexual activity: Not on file Other Topics Concern ??? Not on file Social History Narrative ??? No narrative on file No family history on file. Current Outpatient Prescriptions Medication Sig Dispense Refill ??? amoxicillin (AMOXIL) 875 MG tablet Take 1 Tab by mouth 2 times daily for 10 days 20 Tab 0 No current facility-administered medications for this visit. No Known Allergies REVIEW OF SYSTEMS: Review of Systems Constitutional: Positive for chills. HENT: Positive for congestion, ear pain and sore throat. Respiratory: Negative. Cardiovascular: Negative. OBJECTIVE: General appearance: alert, well appearing, and in no distress. BP 122/76 (BP SITE: LEFT ARM, BP POSITION: SITTING, BP CUFF SIZE: Adult) Pulse 103 Temp 99.9 ??F (Oral) Resp 16 Ht 1.905 m (6' 3 ) Wt 99.8 kg (220 lb) SpO2 96% BMI 27.5 kg/m2 Physical Exam Constitutional: He is oriented to person, place, and time and well-developed, well-nourished, and in no distress. Vital signs are normal. He appears not dehydrated. He appears healthy. Non-toxic appearance. He has a sickly appearance. No distress. HENT: Head: Normocephalic and atraumatic. Right Ear: Tympanic membrane and external ear normal. Left Ear: Tympanic membrane, external ear and ear canal normal. Nose: Nose normal. Mouth/Throat: Uvula is midline. Oropharyngeal exudate, posterior oropharyngeal edema and posterior oropharyngeal erythema present. Bilateral tonsils enlarged 2+ with exudate Right ear canal with cerumen. Verbal consent given to remove cerumen with curette-removed successfully without difficulty. Cardiovascular: Normal rate, regular rhythm and normal heart sounds. Pulmonary/Chest: Effort normal and breath sounds normal. Lymphadenopathy: He has cervical adenopathy. Right cervical: Superficial cervical adenopathy present. Left cervical: Superficial cervical adenopathy present. Neurological: He is oriented to person, place, and time. Vitals reviewed. ASSESSMENT: Office Visit on 12/23/16 STREP A SCREEN Result Value Ref Range Strep A Rapid Negative Negative Strep A INTERNAL CONTROL Present Lot Number [id number] Expiration Date Encounter Diagnoses Name Primary? Tonsillitis Yes ??? Impacted cerumen of right ear PLAN: Orders Placed This Encounter ??? CULTURE THROAT Rapid strep negative ??? STREP A SCREEN ??? Cerumen Removal with Curette ??? amoxicillin (AMOXIL) 875 MG tablet Sig: Take 1 Tab by mouth 2 times daily for 10 days Dispense: 20 Tab Refill: 0 Warm salt water gargles, warm soups and decaffeinated beverages, chloraseptic spray, lozenges, ice chips, popsicles and honey for soothing sore throat. Increase water intake and rest. Ibuprofen or Tylenol for pain or fever. Replace toothbrush after 3 days. Add humidity to help with throat and nasal dryness. We will call with culture results in 2-4 days. Can use otc Debrox drops or equal parts of vinegar, peroxide and water-4 drops once or twice weeklyto soften ear wax. documented in this encounter Plan of Treatment Not on file documented as of this encounter Procedures Procedure Name Priority Date/Time Associated Diagnosis Comments STREP A SCREEN - POINT OF CARE (AMB) STL Routine 12/23/2016 11:08 AM CDT Tonsillitis CULTURE THROAT Routine 12/23/2016 11:06 AM CDT Tonsillitis documented in this encounter Results * STREP A SCREEN (12/23/2016 11:08 AM CDT) Strep A Rapid POCT Negative Negative Strep A Internal Control Present Lot # [id number] Expiration Date Throat ENTIRE THROAT (SURFACE REGION OF NECK) / Unknown 12/23/2016 11:08 AM CDT [facility] - POINT O F CARE ORDERABLES * CULTURE THROAT (12/23/2016 11:06 AM CDT) Culture [facility] Comment: ??CULTURE, THROAT ?MICRO NUMBER: ?[id number] ??TEST STATUS: ? FINAL ??SPECIMEN SOURCE: ?? THROAT ??SPECIMEN QUALITY: ??ADEQUATE ??RESULT: ?No oropharyngeal pathogens recovered. Test Performed at: [facility] ??[id number] DENICE WYNN MD Microbiology ENTIRE THROAT (SURFACE REGION OF NECK) / Unknown 12/23/2016 11:06 AM CDT 12/24/2016 2:02 AM CDT Nayely Ruffin GLUE SIZE MACHINE OPERATOR-ACCOUNT DEVELOPMENT MANAGER LAB - MICROBI OLOGY ORDERABLES [facility] [address] [place] [address] documented in this encounter Visit Diagnoses Diagnosis Tonsillitis- Primary Acute tonsillitis Impacted cerumen of right ear Impacted cerumen documented in this encounter
--- OUTSIDE RECORDS SUMMARY | 2024-10-17 16:42 | XMS_ITS | Encounter Summary ---
Author Organization [facility] Address [facility] [facility] [place] [address] [place] [address] Care Team Providers Care Wash Helper Name Role Phone Juan Francisco Carbajal MD Primary Care Provider Unashira ilable Encounter Details Date Type Department Care Team (Late st Contact Info) Description 04/30/2018 Abstract [facility] Medical Group Family & Sports Medicine - [facility] [address], [place] [address] Juan Francisco Carbajal MD Social History Tobacco Use Types Packs/Day Years Used Date Smoking Tobacco: Never Assessed Sex and Gender Information Value Date Recorded Sex Assigned at Not on file Legal Sex Male 6:51 PM CDT Gender Identity Not on file Sexual Orientation Not on file documented as of this encounter Progress Notes * Juan Francisco Carbajal MD - 04/30/2018 10:25 PM CDT Message normal complete blood count, normal thyroid function, normal cholesterol, normal liver and kidney function. Verified Results CBC w/o Diff ( Hemogram ) [id number] 08:15AM Juan Francisco Carbajal Test Name Result Flag Reference WBC 6.8 x10'3/uL 3.6-10.6 RBC 5.76 x10'6/uL H 4.18-5.51 Hemoglobin (HGB) 16.4 G/DL 13.4-17.0 Hematocrit (HCT) 49.9 % 40.0-54.0 MCV 86.6 FL 81.0-99.0 MCH 28.5 PG 27.0-34.0 Mean Corpuscular Hgb Conc (MCH 32.9 G/DL 32.0-36.0 RDW 12.2 % 11.5-14.5 Platelet Count (PLT) 217 x10'3/uL 150.0-450.0 MPV 11.5 FL 7.0-12.0 mailed. BD/PHYTOPATHOLOGY TEACHER Signatures Electronically signed by : Thalia Qureshi, ; May 01 2018 10:17AM PATIENT SERVICE REPRESENTATIVE (Author) ENT SERVICE REPRESENTATIVE * Generic Conversion MD Zena - 04/30/2018 8:00 AM CDT Reason For Visit Nurse Visit Chief Complaint Pt in the office for blood draw. Pt tolerated procedure well. Active Problems 1. Cervicalgia (723.1) (M54.2) 2. Pain in thoracic spine (724.1) (M54.6) 3. Rash (782.1) (R21) Current Meds 1. No Reported Medications Recorded Plan 1. *Venipuncture In Office; Status:Complete; Done: 30Apr2018 08:36AM Perform:In Office; Due:[id number];Ordered; For:Cervicalgia, Health Maintenance; Ordered By:Juan Francisco Carbajal; 2. Lipid Profile; Status:In Progress - Specimen/Data Collected; Done: [id number] Perform:[facility]; Due:[id number]; Last Updated By:Thalia Qureshi; 04/30/2018 8:34:09 AM;Ordered; For:PMH: Screening cholesterol level; Ordered By:Juan Francisco Carbajal; 3. CBC w/o Diff ( Hemogram ); Status:In Progress - Specimen/Data Collected; Done: [id number] Perform:[facility]; Due:[id number]; Last Updated By:Thalia Qureshi; 04/30/2018 8:34:09 AM;Ordered; For:PMH: Screening cholesterol level, PMH: Screening for diabetes mellitus; Ordered By:Juan Francisco Carbajal; 4. Thyroid Stim Hormone ( TSH ); Status:In Progress - Specimen/Data Collected; Done: [id number] Perform:[facility]; Due:[id number]; Last Updated By:Thalia Qureshi; 04/30/2018 8:34:10 AM;Ordered; For:Rash; Ordered By:Juan Francisco Carbajal; 5. Comprehensive Metabolic Prof ( CMP ); Status:In Progress - Specimen/Data Collected; Done: [id number] Perform:[facility]; Due:[id number]; Last Updated By:Thalia Qureshi; 04/30/2018 8:34:09 AM;Ordered; For:Rash, PMH: Screening cholesterol level, PMH: Screening for diabetes mellitus; Ordered By:Juan Francisco Carbajal; Signatures Electronically signed by : Thalia Qureshi, ; Apr 30 2018 8:36AM PATIENT SERVICE REPRESENTATIVE (Author) documented in this encounter Plan of Treatment Not on file documented as of this encounter Visit Diagnoses Not on filedocumented in this encounter Care Teams Wash Helper Relationship Specialty Start Date End Date Juan Francisco Carbajal MD PCP - General FAMILY PRACTICE 04/29/18 documented as of this encounter
--- OUTSIDE RECORDS SUMMARY | 2024-10-17 16:43 | XMS_ITS | Clinical Summary ---
Author Organization [facility] Address [address] [place] [address] Phone Care Team Providers Care Personal Counselor Name Role Phone Unavailable Primary Care Provider Unavailabl e Allergies No known active allergies Medications No known medications Active Problems Problem Noted Date Diagnosed Date Cervicalgia 04/29/2018 Pain in thoracic spine 04/29/2018 Social History Tobacco Use Types Packs/Day Years Used Date Smoking Tobacco: Never Smokeless Tobacco: Never Tobacco Cessation:Counseling Given: No Sex and Gender Information Value Date Recorded Sex Assigned at Not on file Legal Sex Male 2:00 PM FLAVORING OIL FILTERER Gender Identity Not on file Sexual Orientation Not on file Last Filed Vital Signs Vital Sign Reading Time Taken Comments Blood Pressure 143/77 10/26/2018 2:15 PM FLAVORING OIL FILTERER Pulse 73 10/26/2018 2:15 PM FLAVORING OIL FILTERER Temperature 35.8 ??C (96.5 ??F) 10/26/2018 2:15 PM CS T Respiratory Rate 18 10/26/2018 2:15 PM FLAVORING OIL FILTERER Oxygen Saturation 96% 10/26/2018 2:15 PM FLAVORING OIL FILTERER Inhaled Oxygen Concentration - - Weight 114.4 kg (252 lb 1.6 oz) 10/26/2018 2:15 PM FLAVORING OIL FILTERER Height 193 cm (6' 4 ) 10/26/2018 2:15 PM FLAVORING OIL FILTERER Body Mass Index 30.69 10/26/2018 2:15 PM FLAVORING OIL FILTERER Plan of Treatment Health Maintenance Due Date Last Done Comments Hepatitis C Virus (HCV) Screening 1995 TdaP Immunization 1995 Hepatitis B Immunization (1 of 3 - 19+ 3-dose series) 2014 Influenza Immunization (#1) 2024 SARS-COV-2 Immunization (1 - 2024-25 season) 2024 Respiratory Syncytial Virus (RSV) Immunization (Adult) (1 - 1-dose 75+ series) 2070 Meningococcal Immunization (ACWY) Aged Out No longer eligible based on patient's age to complete this topic Pneumococcal Immunization Combined Aged Out No longer eligible based on patient's age to complete this topic Rotavirus Immunization Aged Out No lo nger eligible based on patient's age to complete this topic Insurance
--- OUTSIDE RECORDS SUMMARY | 2024-10-17 16:43 | XMS_ITS | Encounter Summary ---
Author Organization [facility] Address [address] [place] [address]. [place], [place] [address] [place] [address] Care Team Providers Care Senior Lead Developer Name Role Phone Juan Francisco Carbajal MD Primary Care Provider Unava ilable Encounter Details Date Type Department Care Team (Latest Contact Info) Description 03/11/2018 Abstract [facility] Medical Group Social History Tobacco Use Types [...] on filedocumented in this encounter Care Teams Senior Lead Developer Relationship Specialty Start Date End Date Juan Francisco Carbajal MD PCP - General FAMILY PRACTICE 04/29/18 documented as of this encounter
--- OUTSIDE RECORDS SUMMARY | 2024-10-17 17:52 | XMS_ITS | Encounter Summary ---
Author Organization [facility] Address [address] [place] [address] Care Team Providers Care Banjo Repairer Name Role Phone Unavailable Primary Care Provider Unavailabl e Encounter Details Date Type Department Care Team (Late st Contact Info) Description 01/26/2021 Lab Requisition [facility] Care DermPath Lab [address] [facility] [place] [address] Shantanu Guzman MD [address] [place] [address] Social History Tobacco Use Types [...] CDT) Case Report Dermatopathology Report ? Case: [id number] ? Authorizing Provider: ??Shantanu Guzman MD ?Collected: ? 01/24/2021 03:33 AM ? Ordering Location: ? [facility] DermPath Lab ?Received: ?01/26/2021 02:11 PM ? Pathologist: ? Darcy Stevens MD ? Specimen: ?Skin, occipital scalp ? 1 5:37 PM T DERMATOPATHOLOGY LABORATORY Final Diagnosis Specimen A. 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 5:37 PM [facility] DERMATOPATHOLOGY LABORATORY Gross Description Specimen A: Received is one formalin filled container labeled with the patient's name and designated occipital scalp. The specimen consists of a punch biopsy measuring [id number]. Jar 0. 5:37 PM T DERMATOPATHOLOGY LABORATORY [...] characteristic determined by the Dermatopathology Laboratory at [facility], directed by Dr. Ifrah Vallecillo. These tests need not be, and therefore are not, approved by the [place] Food and Drug Administration. The tests are used for clinical purposes. Billing Codes Specimen Charges Stain Charges 11139 1 08894 1 1 5:37 PM CDT DERMATOPATHOLOGY LABORATORY Embedded Images 1 5:37 PM CDT DERMATOPATHOLOGY LABORATORY Pathology/Cytolo gy TISSUE SPECIMEN FROM SKIN / Unknown 01/24/2021 3:33 AM CDT 01/26/2021 2:11 PM CDT Shantanu Guzman MD LAB - PATHOLOGY/CYTO LOGY ORDERABLES DERMATOPATHOLOGY LABORATORY [facility] - Department of Dermatology [facility] Medicine [address] [place] [address], [address] [phone] documented in this encounter Visit Diagnoses Not on filedocumented in this encounter
--- OUTSIDE RECORDS SUMMARY | 2024-10-17 17:52 | XMS_ITS | Encounter Summary ---
Author Organization [facility] Address [address] [facility] [address] Care Team Providers Care Residential Direct Support Professional Name Role Phone Unavailable Primary Care Provider Unavailabl e Encounter Details Date Type Department Care Team (Late st Contact Info) Description 06/12/2023 Lab Requisition [facility] - DermPath Lab [address] [facility] [place] [phone] Shantanu Guzman MD [address] [place] [address] Social History Tobacco Use Types [...] CDT) Case Report Dermatopathology Report ? Case: [id number] ? Authorizing Provider: ??Shantanu Guzman MD ?Collected: ? 06/11/2023 03:33 AM ? Ordering Location: ? [facility] DermPath Lab ? Received: ?06/12/2023 12:29 [...] characteristic determined by the Dermatopathology Laboratory at [facility], directed by Dr. Ifrah Vallecillo. These tests need not be, and therefore are not, approved by the [place] Food and Drug Administration. The tests are used for clinical purposes. Billing Codes Specimen Charges Stain Charges 63040 84498 [id number] 1 1 1 3 4:46 PM CDT [...] DERMATOPATHOLOGY LABORATORY [facility] - Department of Dermatology [facility] Specialized Medicine [address] [place] [address], [address] [phone] documented in this encounter Visit Diagnoses Not on filedocumented in this encounter
--- OUTSIDE RECORDS SUMMARY | 2024-10-17 17:52 | XMS_ITS | Encounter Summary ---
Author Organization [facility] Address [facility] [place] [address] Care Team Providers Care Medical Professionals Name Role Phone Unavailable Primary Care Provider Unavailabl e Reason for Visit * Reason Onset Date Comments Follow-up 12/12/2019 Encounter Details Date Type Department Care Team (Late st Contact Info) Description 12/12/2019 Telephone [facility] AT [address] [id number] Provider, Kelvin [facility] Follow-up Social History Tobacco Use Types [...] Message left advising patient to call service [facility] [phone] if they have any questions or concerns. Sarah Conner 12/12/2019 10:13 AM documented in this encounter Plan of Treatment Not on file documented as of this encounter Visit Diagnoses Not on filedocumented in this encounter
--- OUTSIDE RECORDS SUMMARY | 2024-10-17 17:52 | XMS_ITS | Patient Health Summary ---
Author Organization [facility] Address [address] [facility] [place] [address] Care Team Providers Care Frame Feeder Name Role Phone Unavailable Primary Care Provider Unavailabl e Note from [facility],non-owned Affiliates and Associated Physician Practices is amultiple site organization consisting of ambulatory clinics and hospital sitesin [place], [place], [place] and [place]. This disclosure is being madepursuant to the Care Everywhere program and may not contain all information available regarding this patient. Last updated 18.[facility] Allergies No known active allergies Medications Be [...] Comments Blood Pressure 122/80 12/09/2019 10:07 AM MANAGER SOCIAL RESPONSIBILITY Pulse 110 12/09/2019 10:07 AM MANAGER SOCIAL RESPONSIBILITY Temperature 36.7 ??C (98 ??F) 12/09/2019 10:07 AM MANAGER SOCIAL RESPONSIBILITY Respiratory Rate 16 12/09/2019 10:07 AM MANAGER SOCIAL RESPONSIBILITY Oxygen Saturation 97% 12/09/2019 10:07 AM MANAGER SOCIAL RESPONSIBILITY Inhaled Oxygen Concentration - - Weight 108 kg (238 lb) 12/09/2019 10:07 AM MANAGER SOCIAL RESPONSIBILITY Height 190.5 cm (6' 3 ) 12/09/2019 10:07 AM MANAGER SOCIAL RESPONSIBILITY Body Mass Index 29.75 12/09/2019 10:07 AM MANAGER SOCIAL RESPONSIBILITY Procedures * DERMATOPATHOLOGY(Performed 06/11/2023) * DERMATOPATHOLOGY(Performed 01/24/2021) [...] included. Case Report Dermatopathology Report ? Case: [id number] ? Authorizing Provider: ??Shantanu Guzman MD ?Collected: ? 06/11/2023 03:33 AM ? Ordering Location: ? [facility] ? 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 Jar 0. 3 4:46 PM [facility] Microscopic Description Specimen A. SKIN, [...] characteristic determined by the Dermatopathology Laboratory at [facility], directed by Dr. Ifrah Vallecillo. These tests need not be, and therefore are not, approved by the [place] Food and Drug Administration. The tests are used for clinical purposes. Billing Codes Specimen Charges Stain Charges 08760 [id number] 37568 1 1 1 3 4:46 PM CDT [...] LAB - PATHOLOGY/CYTO LOGY ORDERABLES DERMATOPATHOLOGY LABORATORY [facility] Department of Dermatology [facility] Medicine [address] [place] [address], [address] [phone] * (ABNORMAL) STREP A SCREEN - POINT OF CARE (AMB) STL (12/09/2019) Only the most recent of2 resultswithin the time period is included. Strep A Rapid POCT Positive(A) Negative Strep A Internal Control Present Lot # [id number] Expiration Date 06/05/2021 Throat ENTIRE THROAT (SURFACE REGION OF NECK) / Unknown 12/09/2019 Lena Vance APRN-[facility] LAB - POINT OF CA RE ORDERABLES * (ABNORMAL) INFLUENZA A+B - POINT OF CARE (AMB) (12/09/2019) Influenza A Antigen Rapid Negative Negative Influenza B Antigen Rapid Positive(A) Negative Influenza Internal Control positive NEGATIVE - POSITIVE Influenza Lot Number [id number] Influenza Expiration Date 09/10/2021 Other NASOPHARYNGEAL SWAB / Unknown 12/09/2019 Lena Vance BELT SANDER STONE-[facility] - POINT OF CA RE ORDERABLES * CULTURE THROAT (12/23/2016 11:06 AM CDT) Culture [facility] Comment: ??CULTURE, THROAT ?MICRO NUMBER: ?[id number] ??TEST STATUS: ? FINAL ??SPECIMEN SOURCE: ?? THROAT ??SPECIMEN QUALITY: ??ADEQUATE ??RESULT: ?No oropharyngeal pathogens recovered. Test Performed at: [facility] ??[phone] DENICE WYNN MD Microbiology ENTIRE THROAT (SURFACE REGION OF NECK) / Unknown 12/23/2016 11:06 AM CDT 12/24/2016 2:02 AM CDT Nayely Ruffin APRN-[facility] - MICROBI OLOGY ORDERABLES [address] [address]
--- OUTSIDE RECORDS SUMMARY | 2024-10-17 17:52 | XMS_ITS | Referral Summary ---
Author Organization [facility] [employer] Address [address] [place] [address] Care Team Providers Care Excel Analyst Name Role Phone Unavailable Primary Care Provider Unavailabl e Source Comments [facility] [employer]non-owned Affiliates and Associated Physician Practices is amultiple site organization consisting of ambulatory clinics and hospital sitesin [place], [place], [place] and [place]. This disclosure is being madepursuant to the Care Everywhere program and may not contain all information available regarding this patient. Last updated 18.[facility] [employer] Allergies No known active allergies Medications Be [...] Comments Blood Pressure 122/80 12/09/2019 10:07 AM CLINICAL NURSE EDUCATOR Pulse 110 12/09/2019 10:07 AM CLINICAL NURSE EDUCATOR Temperature 36.7 ??C (98 ??F) 12/09/2019 10:07 AM CLINICAL NURSE EDUCATOR Respiratory Rate 16 12/09/2019 10:07 AM CLINICAL NURSE EDUCATOR Oxygen Saturation 97% 12/09/2019 10:07 AM CLINICAL NURSE EDUCATOR Inhaled Oxygen Concentration - - Weight 108 kg (238 lb) 12/09/2019 10:07 AM CLINICAL NURSE EDUCATOR Height 190.5 cm (6' 3 ) 12/09/2019 10:07 AM CLINICAL NURSE EDUCATOR Body Mass Index 29.75 12/09/2019 10:07 AM CLINICAL NURSE EDUCATOR Plan of Treatment Not on [place] [address] Dayron Bacon Personal/Family Self [address] [place] [address] [place] [address]
--- OUTSIDE RECORDS SUMMARY | 2024-10-17 17:52 | XMS_ITS | Clinical Summary ---
Author Organization [facility] Address [address] [address] Care Team Providers Care Clinical Genetics Laboratory Chief Name Role Phone Unavailable Primary Care Provider Unavailabl e Source Comments [facility],non-owned Affiliates and Associated Physician Practices is amultiple site organization consisting of ambulatory clinics and hospital sitesin [place], [place], [place] and [place]. This disclosure is being madepursuant to the Care Everywhere program and may not contain all information available regarding this patient. Last updated 18.[facility] Allergies No known active allergies Medications Be [...] Comments Blood Pressure 122/80 12/09/2019 10:07 AM FINISHING OPERATOR Pulse 110 12/09/2019 10:07 AM FINISHING OPERATOR Temperature 36.7 ??C (98 ??F) 12/09/2019 10:07 AM FINISHING OPERATOR Respiratory Rate 16 12/09/2019 10:07 AM FINISHING OPERATOR Oxygen Saturation 97% 12/09/2019 10:07 AM FINISHING OPERATOR Inhaled Oxygen Concentration - - Weight 108 kg (238 lb) 12/09/2019 10:07 AM FINISHING OPERATOR Height 190.5 cm (6' 3 ) 12/09/2019 10:07 AM FINISHING OPERATOR Body Mass Index 29.75 12/09/2019 10:07 AM FINISHING OPERATOR Plan of Treatment Health Maintenance Due Date [...] Son [address] [place] [id number] Dayron Bacon Personal/Family Self [address] [place] [address] [place] [address]
--- OUTSIDE RECORDS SUMMARY | 2024-10-17 17:53 | XMS_ITS | Encounter Summary ---
Author Organization [facility] Address [facility] [facility] [place] [address] Care Team Providers Care Mica Plate Layer Name Role Phone Unavailable Primary Care Provider Unavailabl e Reason for Visit * Reason Onset Date Comments Follow-up 12/25/2016 Encounter Details Date Type Department Care Team (Late st Contact Info) Description 12/25/2016 Telephone [facility] AT [address] [phone] Laurie Rae Follow-up Social History Tobacco Use [...]
--- OUTSIDE RECORDS SUMMARY | 2024-10-17 17:53 | XMS_ITS | Encounter Summary ---
Author Organization [facility] Address [address] [place] [address]. [place], [place] [address] [place] [address] Care Team Providers Care Quality Technician Fiberglass Name Role Phone Juan Francisco Carbajal MD Primary Care Provider Unava ilable Encounter Details Date Type Department Care Team (Latest Contact Info) Description 03/11/2018 Abstract [facility] Medical Group Social History Tobacco Use [...] on filedocumented in this encounter Care Teams Quality Technician Fiberglass Relationship Specialty Start Date End Date Juan Francisco Carbajal MD PCP - General FAMILY PRACTICE 04/29/18 documented as of this encounter
--- OUTSIDE RECORDS SUMMARY | 2024-10-17 17:53 | XMS_ITS | Encounter Summary ---
Author Organization [facility] Address [address] [place] [address]. [place] [address] [place] [address] Care Team Providers Care Intermediate Manager Name Role Phone Juan Francisco Carbajal MD Primary Care Provider Unava ilable Encounter Details Date Type Department Care Team (Late st Contact Info) Description 04/30/2018 Orders Only [facility] [address] [place] [address] Juan Francisco Carbajal MD Social [...] - 4.76 uIU/ML 04/30/2018 5:41 PM CDT [facility] 04/30/2018 8:15 AM CDT us Juan Francisco Carbajal MD LABORATORY Final Result [facility] [address] [place] [address], * (ABNORMAL) LIPID PANEL (04/30/2018 8:15 AM CDT) CHOLESTEROL 186 <200 MG/DL 04/30/2018 5:52 PM CDT [facility] TRIGLYCERIDES 240(H) <150 MG/DL 04/30/2018 5:52 PM CDT [facility] HDL 38(L) 40 - 59 MG/DL 04/30/2018 5:52 PM CDT [facility] LDL (CALCULATED) 100(H) <100 MG/DL 04/30/20 18 5:52 PM CDT [facility] CHOL/HDL RATIO 4.9 3.00 - 5.00 04/30/2018 5:52 PM CDT [facility] 04/30/2018 8:15 AM CDT us Juan Francisco Carbajal MD LABORATORY Final Result [facility] [address] [place] [address], * COMPREHENSIVE METABOLIC PANEL (04/30/2018 8:15 AM CDT) CALCIUM S/P/B 10.1 8.4 - 10.7 MG/DL 04/30/2018 5:52 PM CDT [facility] GLUCOSE 84 70 - 139 MG/DL 04/30/2018 5:52 PM T [facility] BUN 17 8.4 - 25.7 MG/DL 04/30/2018 5:52 PM T [facility] CREATININE S/P/B 0.80 0.70 - 1.30 MG/DL 04/30/2018 5:52 PM T [facility] EGFR NON-AFR. AMER. >90 >90 ML/MIN/1.7 3 M2 04/30/2018 5:52 PM CDT [facility] EGFR AFR. AMER. >90 >90 ml/min/1.7 3 m2 04/30/2018 5:52 PM [facility] SODIUM S/P/B 138 136 - 145 MMOL/L 04/30/2018 5:52 PM [facility] POTASSIUM S/P/B 4.2 3.6 - 5.0 MMOL/L 04/30/2018 5:52 PM [facility] CHLORIDE S/P/B 103 98 - 113 MMOL/L 04/30/2018 5:52 PM [facility] CO2 26 20 - 30 MMOL/L 04/30/2018 5:52 PM [facility] ANION GAP 13 10 - 21 MMOL/L 04/30/2018 5:52 PM [facility] OSMOLALITY (CALC) 276 04/30/2018 5:52 PM [facility] BILIRUBIN TOTAL S/P/B 0.3 0.2 - 1.2 MG/DL 04/30/2018 5:52 PM [facility] ALKALINE PHOSPHATASE S/P/B 75 40 - 150 U/L 04/30/2018 5:52 PM [facility] AST 19 5 - 45 U/L 04/30/2018 5:52 PM [facility] ALT 36 0 - 55 U/L 04/30/2018 5:52 PM [facility] TOTAL PROTEIN S/P/B 7.5 6.4 - 7.9 G/DL 04/30/2018 5:52 PM [facility] ALBUMIN S/P/B 4.8 3.5 - 5.2 G/DL 04/30/2018 5:52 PM [facility] GLOBULIN 2.7 2.1 - 3.8 G/DL 04/30/2018 5:52 PM [facility] 04/30/2018 8:15 AM CDT Juan Francisco Carbajal MD LABORATORY Final Result [facility] [address] [place] [address], * (ABNORMAL) CBC, AUTO, NO DIFF (04/30/2018 8:15 AM CDT) WBC 6.8 3.6 - 10.6 x10'3/uL 04/30/2018 5:07 PM CDT [facility] RBC 5.76(H) 4.18 - 5.51 x10'6/uL 04/30/2018 5:07 PM CDT [facility] HGB 16.4 13.4 - 17.0 G/DL 04/30/2018 5:07 PM CDT [facility] HCT 49.9 40.0 - 54.0 % 04/30/2018 5:07 PM T [facility] MCV 86.6 81.0 - 99.0 FL 04/30/2018 5:07 PM CDT [facility] MCH 28.5 27.0 - 34.0 PG 04/30/2018 5:07 PM CDT [facility] MCHC 32.9 32.0 - 36.0 G/DL 04/30/2018 5:07 PM T [facility] RDW 12.2 11.5 - 14.5 % 04/30/2018 5:07 PM CDT [facility] PLT 217 150.0 - 450.0 x10'3/uL 04/30/2018 5:07 PM T [facility] MPV 11.5 7.0 - 12.0 FL 04/30/2018 5:07 PM T [facility] 04/30/2018 8:15 AM CDT Juan Francisco Carbajal MD LABORATORY Final Result [facility] [address] [place] [address], documented in this encounter Visit Diagnoses Diagnosis Encounter for screening for diabetes mellitus Screening for diabetes mellitus Encounter for screening for lipoid disorders Screening for lipoid disorders Rash and other nonspecific skin eruption documented in this encounter Care Teams Intermediate Manager Relationship Specialty Start Date End Date Juan Francisco Carbajal MD PCP - General FAMILY PRACTICE 04/29/18 documented as of this encounter
--- OUTSIDE RECORDS SUMMARY | 2024-10-17 17:53 | XMS_ITS | Encounter Summary ---
Author Organization [facility] Address [facility] [facility] [place] [address] [place] [address] Care Team Providers Care Lubricating Engineer Name Role Phone Juan Francisco Carbajal MD Primary Care Provider Unashira ilable Encounter Details Date Type Department Care Team (Late st Contact Info) Description 04/30/2018 Abstract [facility] Medical [facility] Family & Sports Medicine - [facility] [address], [place] [address] Juan Francisco Carbajal MD Social [...] Results CBC w/o Diff ( Hemogram ) [id number] 08:15AM Juan Francisco Carbajal Test Name Result Flag Reference WBC 6.8 x10'3/uL 3.6-10.6 RBC 5.76 x10'6/uL H 4.18-5.51 Hemoglobin (HGB) 16.4 G/DL 13.4-17.0 Hematocrit (HCT) 49.9 % 40.0-54.0 MCV 86.6 FL 81.0-99.0 MCH 28.5 PG 27.0-34.0 Mean Corpuscular Hgb Conc (MCH 32.9 G/DL 32.0-36.0 RDW 12.2 % 11.5-14.5 Platelet Count (PLT) 217 x10'3/uL 150.0-450.0 MPV 11.5 FL 7.0-12.0 mailed. BD/WOOD GETTER Signatures Electronically signed by : Thalia Qureshi, ; May 01 2018 10:17AM RAISE MINER (Author) E MINER * Generic Conversion MD Zena - 04/30/2018 8:00 AM CDT Reason For Visit Nurse Visit Chief Complaint Pt in the office for blood draw. Pt tolerated procedure well. Active Problems 1. Cervicalgia (723.1) (M54.2) 2. Pain in thoracic spine (724.1) (M54.6) 3. Rash (782.1) (R21) Current Meds 1. No Reported Medications Recorded Plan 1. *Venipuncture In Office; Status:Complete; Done: 30Apr2018 08:36AM Perform:In Office; Due:[id number];Ordered; For:Cervicalgia, Health Maintenance; Ordered By:Juan Francisco Carbajal; 2. Lipid Profile; Status:In Progress - Specimen/Data Collected; Done: [id number] Perform:[facility]; Due:[id number]; Last Updated By:Thalia Qureshi; 04/30/2018 8:34:09 AM;Ordered; For:PMH: Screening cholesterol level; Ordered By:Juan Francisco Carbajal; 3. CBC w/o Diff ( Hemogram ); Status:In Progress - Specimen/Data Collected; Done: [id number] Perform:[facility]; Due:[id number]; Last Updated By:Thalia Qureshi; 04/30/2018 8:34:09 AM;Ordered; For:PMH: Screening cholesterol level, PMH: Screening for diabetes mellitus; Ordered By:Juan Francisco Carbajal; 4. Thyroid Stim Hormone ( TSH ); Status:In Progress - Specimen/Data Collected; Done: [id number] Perform:[facility]; Due:[id number]; Last Updated By:Thalia Qureshi; 04/30/2018 8:34:10 AM;Ordered; For:Rash; Ordered By:Juan Francisco Carbajal; 5. Comprehensive Metabolic Prof ( CMP ); Status:In Progress - Specimen/Data Collected; Done: [id number] Perform:[facility]; Due:[id number]; Last Updated By:Thalia Qureshi; 04/30/2018 8:34:09 AM;Ordered; For:Rash, PMH: Screening cholesterol level, PMH: Screening for diabetes mellitus; Ordered By:Juan Francisco Carbajal; Signatures Electronically signed by : Thalia Qureshi, ; Apr 30 2018 8:36AM RAISE MINER (Author) documented in this encounter Plan of Treatment Not on file documented as of this encounter Visit Diagnoses Not on filedocumented in this encounter Care Teams Lubricating Engineer Relationship Specialty Start Date End Date Juan Francisco Carbajal MD PCP - General FAMILY PRACTICE 04/29/18 documented as of this encounter
--- OUTSIDE RECORDS SUMMARY | 2024-10-17 17:53 | XMS_ITS | Encounter Summary ---
Author Organization [facility] Address [address] [place] [address]. [place] [address] [place] [address] Care Team Providers Care Account Resolution Specialist Name Role Phone Juan Francisco Carbajal MD Primary Care Provider Unava ilable Encounter Details Date Type Department Care Team (Latest Contact Info) Description 04/30/2018 4:07 PM CDT - 04/30/2018 11:59 PM CDT Hospital Encounter [facility] [address] [place] [place] [address] Juan Francisco Carbajal MD Discharge Disposition: [...] - 4.76 uIU/ML 04/30/2018 5:41 PM CDT [facility] 04/30/2018 8:15 AM CDT Juan Francisco Carbajal MD LABORATORY Final Result [facility] [address] [place] [address], * (ABNORMAL) LIPID PANEL (04/30/2018 8:15 AM CDT) CHOLESTEROL 186 <200 MG/DL 04/30/2018 5:52 PM CDT [facility] TRIGLYCERIDES 240(H) <150 MG/DL 04/30/2018 5:52 PM CDT [facility] HDL 38(L) 40 - 59 MG/DL 04/30/2018 5:52 PM CDT [facility] LDL (CALCULATED) 100(H) <100 MG/DL 04/30/20 18 5:52 PM CDT [facility] CHOL/HDL RATIO 4.9 3.00 - 5.00 04/30/2018 5:52 PM CDT [facility] 04/30/2018 8:15 AM CDT us Juan Francisco Carbajal MD LABORATORY Final Result [facility] [address] [place] [address], [place] [phone] * COMPREHENSIVE METABOLIC PANEL (04/30/2018 8:15 AM CDT) CALCIUM S/P/B 10.1 8.4 - 10.7 MG/DL 04/30/2018 5:52 PM [facility] GLUCOSE 84 70 - 139 MG/DL 04/30/2018 5:52 PM [facility] BUN 17 8.4 - 25.7 MG/DL 04/30/2018 5:52 PM [facility] CREATININE S/P/B 0.80 0.70 - 1.30 MG/DL 04/30/2018 5:52 PM [facility] EGFR NON-AFR. AMER. >90 >90 ML/MIN/1.7 3 M2 04/30/2018 5:52 PM [facility] EGFR AFR. AMER. >90 >90 ml/min/1.7 3 m2 04/30/2018 5:52 PM [facility] SODIUM S/P/B 138 136 - 145 MMOL/L 04/30/2018 5:52 PM [facility] POTASSIUM S/P/B 4.2 3.6 - 5.0 MMOL/L 04/30/2018 5:52 PM [facility] CHLORIDE S/P/B 103 98 - 113 MMOL/L 04/30/2018 5:52 PM [facility] CO2 26 20 - 30 MMOL/L 04/30/2018 5:52 PM [facility] ANION GAP 13 10 - 21 MMOL/L 04/30/2018 5:52 PM [facility] OSMOLALITY (CALC) 276 04/30/2018 5:52 PM [facility] BILIRUBIN TOTAL S/P/B 0.3 0.2 - 1.2 MG/DL 04/30/2018 5:52 PM [facility] ALKALINE PHOSPHATASE S/P/B 75 40 - 150 U/L 04/30/2018 5:52 PM [facility] AST 19 5 - 45 U/L 04/30/2018 5:52 PM CDT [facility] ALT 36 0 - 55 U/L 04/30/2018 5:52 PM CDT [facility] TOTAL PROTEIN S/P/B 7.5 6.4 - 7.9 G/DL 04/30/2018 5:52 PM CDT [facility] ALBUMIN S/P/B 4.8 3.5 - 5.2 G/DL 04/30/2018 5:52 PM CDT [facility] GLOBULIN 2.7 2.1 - 3.8 G/DL 04/30/2018 5:52 PM T [facility] 04/30/2018 8:15 AM CDT Juan Francisco Carbajal MD LABORATORY Final Result [facility] [address] [place] [address], * (ABNORMAL) CBC, AUTO, NO DIFF (04/30/2018 8:15 AM CDT) WBC 6.8 3.6 - 10.6 x10'3/uL 04/30/2018 5:07 PM T [facility] RBC 5.76(H) 4.18 - 5.51 x10'6/uL 04/30/2018 5:07 PM CDT [facility] HGB 16.4 13.4 - 17.0 G/DL 04/30/2018 5:07 PM T [facility] HCT 49.9 40.0 - 54.0 % 04/30/2018 5:07 PM T [facility] MCV 86.6 81.0 - 99.0 FL 04/30/2018 5:07 PM CDT [facility] MCH 28.5 27.0 - 34.0 PG 04/30/2018 5:07 PM CDT [facility] MCHC 32.9 32.0 - 36.0 G/DL 04/30/2018 5:07 PM CDT [facility] RDW 12.2 11.5 - 14.5 % 04/30/2018 5:07 PM CDT [facility] PLT 217 150.0 - 450.0 x10'3/uL 04/30/2018 5:07 PM CDT [facility] MPV 11.5 7.0 - 12.0 FL 04/30/2018 5:07 PM CDT [facility] 04/30/2018 8:15 AM CDT Juan Francisco Carbajal MD LABORATORY Final Result [facility] [address] [place] [address], documented in this encounter Visit Diagnoses Diagnosis Encounter for screening for diabetes mellitus Screening for diabetes mellitus Encounter for screening for lipoid disorders Screening for lipoid disorders Rash and other nonspecific skin eruption documented in this encounter Care Teams Account Resolution Specialist Relationship Specialty Start Date End Date Juan Francisco Carbajal MD PCP - General FAMILY PRACTICE 04/29/18 documented as of this encounter
--- OUTSIDE RECORDS SUMMARY | 2024-10-17 17:53 | XMS_ITS | Encounter Summary ---
Author Organization [facility] Address [facility] [facility] [place] [address] [place] [address] Care Team Providers Care Substation Technician Name Role Phone Melinda Flores MD Primary Care Provider Unava ilable Encounter Details Date Type Department Care Team (Latest Contact Info) Description 04/29/2018 4:15 PM CDT - 04/29/2018 11:59 PM CDT Hospital Encounter [facility] [address] [place] [address] Melinda Flores MD Discharge Disposition: [...] spine documented in this encounter Care Teams Substation Technician Relationship Specialty Start Date End Date Melinda Flores MD PCP - General FAMILY PRACTICE 04/29/18 documented as of this encounter
--- OUTSIDE RECORDS SUMMARY | 2024-10-17 17:53 | XMS_ITS | Encounter Summary ---
Author Organization [facility] Address [address] [place] [address]. [place], [place] [address] [place] [address] Care Team Providers Care Food Counter Attendant Name Role Phone Juan Francisco Carbajal MD Primary Care Provider Unava ilable Encounter Details Date Type Department Care Team (Latest Contact Info) Description 03/12/2018 Abstract [facility] Medical Group Social History Tobacco Use [...] on filedocumented in this encounter Care Teams Food Counter Attendant Relationship Specialty Start Date End Date Juan Francisco Carbajal MD PCP - General FAMILY PRACTICE 04/29/18 documented as of this encounter
--- OUTSIDE RECORDS SUMMARY | 2024-10-17 17:53 | XMS_ITS | Encounter Summary ---
Author Organization [facility] Address [address] [place] [address]. [place] [address] [place] [address] Care Team Providers Care Band Sawyer Name Role Phone Juan Francisco Carbajal MD Primary Care Provider Kit ilable Encounter Details Date Type Department Care Team (Late st Contact Info) Description 04/27/2018 Abstract [facility] Medical Group Family & Sports Medicine - [facility] [address] [facility], [place] [address] Juan Francisco Carbajal MD Social [...] primary care provider is Dr Rojas in [facility]. He does not have any chronic medical [...] 1. History of Oral Surgery Tooth Extraction [place] Tooth Family History Mother 1. Family history [...] Bambi Napoles; 04/27/2018 10:06:41 AM Vitals Recorded: [id number] 10:11AM Temperature 96.9 F Heart Rate 77 [...] 3. History of Oral Surgery Tooth Extraction [place] Tooth 4. Family history of diabetes mellitus [...] I have referred him to see a civil designer. 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 #3. Return to clinic 3 to 6 months for reevaluation. Signatures Electronically signed by : Juan Francisco Carbajal M.D.; Apr 27 2018 10:51AM LIGHT ARMORED RECONNAISSANCE OFFICER (Author) T ARMORED RECONNAISSANCE OFFICER documented in this encounter Plan of Treatment [...] (ABNORMAL) LIPID PANEL (04/30/2018 8:15 AM CDT) [facility] CHOLESTEROL 186 <200 MG/DL MED[facility]OU P TO EPIC CONVERSION TRIGLYCERIDES 240(H) <150 MG/DL MEDGR OUP TO EPIC CONVERSION HDL 38(L) 40 - 59 MG/DL [facility] TO EPIC CONVERSION LDL (CALCULATED) 100(H) <100 MG/DL ND DGROUP TO EPIC CONVERSION CHOL/HDL RATIO 4.9 [...] MD LABORATORY Final Result Performing Organization Address City/[facility] Co de Phone Number MED[facility] TO EPIC [...] on filedocumented in this encounter Care Teams Band Sawyer Relationship Specialty Start Date End Date Juan Francisco Carbajal MD PCP - General FAMILY PRACTICE 04/29/18 documented as of this encounter
--- OUTSIDE RECORDS SUMMARY | 2024-10-17 17:53 | XMS_ITS | Encounter Summary ---
Author Organization [facility] Address [address] [place] [address]. [place], [place] [address] [place] [address] Care Team Providers Care General Administrator Name Role Phone Juan Francisco Carbajal MD Primary Care Provider Unava ilable Encounter Details Date Type Department Care Team (Latest Contact Info) Description 05/12/2018 Abstract [facility] Medical [facility] , Dakota Doshi MD Social [...] on filedocumented in this encounter Care Teams General Administrator Relationship Specialty Start Date End Date Juan Francisco Carbajal MD PCP - General FAMILY PRACTICE 04/29/18 documented as of this encounter
--- OUTSIDE RECORDS SUMMARY | 2024-10-17 17:53 | XMS_ITS | Encounter Summary ---
Author Organization [facility] Address [facility] [facility] [place] [address] [place] [address] Care Team Providers Care Stunt Performer Name Role Phone Melinda Flores MD Primary Care Provider Unava ilable Encounter Details Date Type Department Care Team (Latest Contact Info) Description 04/29/2018 Abstract [facility] Medical Group Melinda Flores MD [...] on filedocumented in this encounter Care Teams Stunt Performer Relationship Specialty Start Date End Date Melinda Flores MD PCP - General FAMILY PRACTICE 04/29/18 documented as of this encounter
--- OUTSIDE RECORDS SUMMARY | 2024-10-17 17:53 | XMS_ITS | Clinical Summary ---
Author Organization [facility] Address [address] [place] [address]. [place] [address] [place] [address] Care Team Providers Care Commutator V Ring Assembler Name Role Phone Juan Francisco Carbajal [...] to complete this topic Insurance Care Teams Commutator V Ring Assembler Relationship Specialty Start Date End Date Juan Francisco Carbajal MD PCP - General FAMILY PRACTICE 04/29/18
--- OUTSIDE RECORDS SUMMARY | 2024-10-17 17:53 | XMS_ITS | Encounter Summary ---
Author Organization [facility] Address [address] [place] [address]. [place], [place] [address] [place] [address] Care Team Providers Care Collarette Separator Name Role Phone Juan Francisco Carbajal MD Primary Care Provider Unava ilable Encounter Details Date Type Department Care Team (Latest Contact Info) Description 06/29/2018 Scan [facility] Medical Group , Dakota Doshi [...] on filedocumented in this encounter Care Teams Collarette Separator Relationship Specialty Start Date End Date Juan Francisco Carbajal MD PCP - General FAMILY PRACTICE 04/29/18 documented as of this encounter
--- OUTSIDE RECORDS SUMMARY | 2024-10-17 17:53 | XMS_ITS | Clinical Summary ---
Author Organization [facility] Address [address] [place] [address] Phone Care Team Providers Care Survey Coordinator Name Role Phone Unavailable Primary Care Provider [...] on file Legal Sex Male 2:00 PM DIGITAL FORENSIC EXAMINER Gender Identity Not on file Sexual Orientation Not on file Last Filed Vital Signs Vital Sign Reading Time Taken Comments Blood Pressure 143/77 10/26/2018 2:15 PM DIGITAL FORENSIC EXAMINER Pulse 73 10/26/2018 2:15 PM DIGITAL FORENSIC EXAMINER Temperature 35.8 ??C (96.5 ??F) 10/26/2018 2:15 PM CS T Respiratory Rate 18 10/26/2018 2:15 PM DIGITAL FORENSIC EXAMINER Oxygen Saturation 96% 10/26/2018 2:15 PM DIGITAL FORENSIC EXAMINER Inhaled Oxygen Concentration - - Weight 114.4 kg (252 lb 1.6 oz) 10/26/2018 2:15 PM DIGITAL FORENSIC EXAMINER Height 193 cm (6' 4 ) 10/26/2018 2:15 PM DIGITAL FORENSIC EXAMINER Body Mass Index 30.69 10/26/2018 2:15 PM DIGITAL FORENSIC EXAMINER Plan of Treatment Health Maintenance Due Date [...]
--- OUTSIDE RECORDS SUMMARY | 2024-10-17 17:53 | XMS_ITS | Encounter Summary ---
Author Organization [facility] Address [address] [place] [address]. [place], [place] [address] [place] [address] Care Team Providers Care Sorting Grapple Operator Name Role Phone Juan Francisco Carbajal MD Primary Care Provider Unava ilable Encounter Details Date Type Department Care Team (Latest Contact Info) Description 07/03/[address] [facility] Medical Group Dakota Freitas MD Social History [...] on filedocumented in this encounter Care Teams Sorting Grapple Operator Relationship Specialty Start Date End Date Juan Francisco Carbajal MD PCP - General FAMILY PRACTICE 04/29/18 documented as of this encounter
--- OUTSIDE RECORDS SUMMARY | 2024-10-17 17:53 | XMS_ITS | Encounter Summary ---
Author Organization [facility] Address [facility] [facility] [place] [address] [place] [address] Care Team Providers Care Director Of Student Services Name Role Phone Juan Francisco Carbajal MD Primary Care Provider Kit ilable Encounter Details Date Type Department Care Team (Latest Contact Info) Description 04/20/2018 Abstract [facility] Medical Group Social History Tobacco [...] Joann Erazo, ; Apr 20 2018 3:25PM FISHING LINE WINDING MACHINE OPERATOR (Author) documented in this encounter Plan of Treatment Not on file documented as of this encounter Visit Diagnoses Not on filedocumented in this encounter Care Teams Director Of Student Services Relationship Specialty Start Date End Date Juan Francisco Carbajal MD PCP - General FAMILY PRACTICE 04/29/18 documented as of this encounter
--- OUTSIDE RECORDS SUMMARY | 2024-10-17 17:53 | XMS_ITS | Encounter Summary ---
Author Organization [facility] Address [address] [address] Care Team Providers Care Reserve Officer Name Role Phone Unavailable Primary Care Provider Unavailabl e Reason for Visit * Reason Comments Sore Throat very very sore throa t started yesterday with chills, bilateral ear pressure, congestion. Encounter Details Date Type Department Care Team (Late st Contact Info) Description 12/23/2016 10:20 AM CDT [facility] [address] [address] Provider, Kelvin Exp [place] Tonsillitis (Primary Dx); Impacted cerumen of right [...] refuse treatment. The above information is an educational aide only. It is not intended as medical advice for individual conditions or treatments. Talk to your doctor, nurse or pharmacist before following any medical regimen to see if it is safe and effective for you. ?? 2016 [employer]. Information is for End User's use only and may not be sold, redistributed or otherwise used for commercial purposes. All illustrations and images included in CareNotes?? are the copyrighted property of A.D.A.M., Inc. or [employer]. Warm salt water gargles, warm soups and [...] Strep A INTERNAL CONTROL Present Lot Number [id number] Expiration Date Encounter Diagnoses Name Primary? Tonsillitis [...] Strep A Internal Control Present Lot # [id number] Expiration Date Throat ENTIRE THROAT (SURFACE REGION OF NECK) / Unknown 12/23/2016 11:08 AM CDT [facility] - POINT O F CARE ORDERABLES * CULTURE THROAT (12/23/2016 11:06 AM CDT) [facility] Comment: ??CULTURE, THROAT ?MICRO NUMBER: ?[id number] ??TEST STATUS: ? FINAL ??SPECIMEN SOURCE: ?? THROAT ??SPECIMEN QUALITY: ??ADEQUATE ??RESULT: ?No oropharyngeal pathogens recovered. Test Performed at: [id number] ??[id number] DENICE WYNN MD Microbiology ENTIRE THROAT (SURFACE REGION OF NECK) / Unknown 12/23/2016 11:06 AM CDT 12/24/2016 2:02 AM CDT N[facility]ely Ruffin INFORMATION LEAD-CONFERENCE SERVICES COORDINATOR LAB - MICROBI OLOGY ORDERABLES [facility] [id number] [place] [address] documented in this encounter Visit Diagnoses Diagnosis Tonsillitis- Primary Acute tonsillitis Impacted cerumen of right ear Impacted cerumen documented in this encounter
--- OUTSIDE RECORDS SUMMARY | 2024-10-17 17:53 | XMS_ITS | Encounter Summary ---
Author Organization [facility] Address [address] [place] [address]. [place] [address] [place] [address] Care Team Providers Care Supervisor Finish End Name Role Phone Melinda Flores MD Primary Care Provider Unava ilable Encounter Details Date Type Department Care Team (Latest Contact Info) Description 04/29/2018 Abstract [facility] Medical Group Melinda Flores MD [...] spine Verified Results XR THOR SPINE 3V [id number] 04:30PM Melinda Flores Test Name Result Flag [...] MELINDA FLORES pt notified in office today. BD/COMMUNICATIONS EDITOR Signatures Electronically signed by : Thalia Qureshi, ; Apr 30 2018 8:38AM CATERING STAFF MEMBER (Author) RING STAFF MEMBER * Melinda Flores MD - 04/29/2018 3:00 [...] 1. History of Oral Surgery Tooth Extraction [place] Tooth Family History Mother 1. Family history [...] Bambi Napoles; 04/27/2018 10:06:41 AM Vitals Recorded: [id number] 02:27PM Temperature 97.4 F Heart Rate 70 [...] I previously referred him to see a multimedia programmer. 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 #4. Return to clinic 3 weeks for reevaluation or sooner if needed. Signatures Electronically signed by : Melinda Flores M.D.; Apr 29 2018 3:27PM CATERING STAFF MEMBER (Author) RING STAFF MEMBER documented in this encounter Plan of Treatment Not on file documented as of this encounter Visit Diagnoses Not on filedocumented in this encounter Care Teams Supervisor Finish End Relationship Specialty Start Date End Date Melinda Flores MD PCP - General FAMILY PRACTICE 04/29/18 documented as of this encounter
--- OUTSIDE RECORDS SUMMARY | 2024-10-17 17:53 | XMS_ITS | Encounter Summary ---
Author Organization [facility] Address [address] [place] [address]. [place] [address] [place] [address] Care Team Providers Care Partner Marketing Manager Name Role Phone Melinda Flores MD Primary Care Provider Unava ilable Reason for Visit * Reason Onset Date Comments Pre-visit Gap Closure 10/16/2018 Encounter Details Date Type Department Care Team (Late st Contact Info) Description 10/16/2018 Telephone [facility] Family & Internal Medicine [address] [address] Melinda Flores MD Pre-visit Gap [...] [place] MA - 10/16/2018 1:38 PM CST [facility] FAMILY MEDICINE [address], [facility] [address] MELINDA FLORES MD Health Maintenance [...] Not on file Counseling given: Not Answered ECTION TELLER documented in this encounter Plan of Treatment Not on file documented as of this encounter Visit Diagnoses Not on filedocumented in this encounter Care Teams Partner Marketing Manager Relationship Specialty Start Date End Date Melinda Flores MD PCP - General FAMILY PRACTICE 04/29/18 documented as of this encounter
--- OUTSIDE RECORDS SUMMARY | 2024-10-17 17:53 | XMS_ITS | Encounter Summary ---
Author Organization [facility] Address [address] [place] [address] Care Team Providers Care Bird Sitter Name Role Phone Unavailable Primary Care Provider Unavailabl e Reason for Visit * Reason Comments Cough Congestion Sore Throat Headache Fatigue Encounter Details Date Type Department Care Team (Late st Contact Info) Description 12/09/2019 10:20 AM PICKER/PULLER Office Visit [facility] AT [address] [id number] Provider, [facility] Jesi [place] Influenza B (Primary Dx); Strep pharyngitis Social [...] Comments Blood Pressure 122/80 12/09/2019 10:07 AM PICKER/PULLER Pulse 110 12/09/2019 10:07 AM PICKER/PULLER Temperature 36.7 ??C (98 ??F) 12/09/2019 10:07 AM PICKER/PULLER Respiratory Rate 16 12/09/2019 10:07 AM PICKER/PULLER Oxygen Saturation 97% 12/09/2019 10:07 AM PICKER/PULLER Inhaled Oxygen Concentration - - Weight 108 kg (238 lb) 12/09/2019 10:07 AM PICKER/PULLER Height 190.5 cm (6' 3 ) 12/09/2019 10:07 AM PICKER/PULLER Body Mass Index 29.75 12/09/2019 10:07 AM PICKER/PULLER documented in this encounter Patient Instructions * Patient Instructions* Lnea Vance APRN-CNP - 12/09/2019 10:12 AM PICKER/PULLER Images from the original note were not included. Patient Education Strep Throat CONTROL SYSTEMS TECHNICIAN: Strep throat is a throat infection caused [...] ask them during your visits. ?? Copyright [employer] 2018 Information is for End User's use only and may not be sold, redistributed or otherwise used for commercial purposes. All illustrations and images included in CareNotes?? are the copyrighted property of [employer]. or [employer] The above information is an educational programming director only. It is not intended as medical [...] has the flu ?? Living in a longterm or long-term care facility ?? Living in [...] ?? Clean shared items with a germ-killing boat cleaner. Clean table surfaces, doorknobs, and light [...] treatment. The above information is an educational programming director only. It is not intended as medical advice for individual conditions or treatments. Talk to your doctor, nurse or pharmacist before following any medical regimen to see if it is safe and effective for you. ?? Copyright [employer] 2019 Information is for End User's use only and may not be sold, redistributed or otherwise used for commercial purposes. All illustrations and images included in CareNotes?? are the copyrighted property of [employer], [employer]. or [employer] ER/PULLER documented in this encounter Progress Notes * Lena Vance APRN-CNP - 12/09/2019 10:10 AM CST Subjective: Dayron Cardozo is a 24 year old male who presents for evaluation: Chief Complaint Patient presents with ??? Cough ??? Congestion ??? Sore Throat ??? Headache ??? Fatigue Primary Care Physician is Ronald Rojas MD. Symptoms include cough, congestion, sore throat, headache and fatigue. [place] feverish last night for the first time. [...] file Gets together: Not on file Attends samaritan service: Not on file Active member of [...] Strep A Internal Control Present Lot # [id number] Expiration Date 06/05/2021 Assessment: . Encounter Diagnoses [...] Home .ANNE MARIE Arreola 12/09/2019 10:24 AM ER/PULLER documented in this encounter Plan of Treatment [...] Strep A Internal Control Present Lot # [id number] Expiration Date 06/05/2021 Throat ENTIRE THROAT (SURFACE REGION OF NECK) / Unknown 12/09/2019 Lena Vance APRN-LABORATORY TECHNICAL SPECIALIST LAB - POINT OF CA RE ORDERABLES * (ABNORMAL) INFLUENZA A+B - POINT OF CARE (AMB) (12/09/2019) Influenza A Antigen Rapid Negative Negative Influenza B Antigen Rapid Positive(A) Negative Influenza Internal Control positive NEGATIVE - POSITIVE Influenza Lot Number [id number] Influenza Expiration Date 09/10/2021 Other NASOPHARYNGEAL SWAB / Unknown 12/09/2019 Lena Vance APRN-[facility] - POINT OF [place] RE ORDERABLES documented in this encounter Visit Diagnoses Diagnosis Influenza B- Primary Influenza with other respiratory manifestations Strep pharyngitis Streptococcal sore throat documented in this encounter
--- OUTSIDE RECORDS SUMMARY | 2024-10-17 17:53 | XMS_ITS | Encounter Summary ---
Author Organization [facility] Address [facility] [facility] [place] [address] [place] [address] Care Team Providers Care Prints And Drawings Curator Name Role Phone Melinda Flores MD Primary Care Provider Unava ilable Encounter Details Date Type Department Care Team (Latest Contact Info) Description 04/29/2018 Abstract [facility] Medical Group Melinda Flores MD Social History [...] on filedocumented in this encounter Care Teams Prints And Drawings Curator Relationship Specialty Start Date End Date Melinda Flores MD PCP - General FAMILY PRACTICE 04/29/18 documented as of this encounter
--- OUTSIDE RECORDS SUMMARY | 2024-10-17 17:53 | XMS_ITS | Encounter Summary ---
Author Organization [facility] Address [address] [place] [address]. [place], [place] [address] [place] [address] Care Team Providers Care Senior Quality Methods Specialist Name Role Phone Juan Francisco Carbajal MD Primary Care Provider Unava ilable Encounter Details Date Type Department Care Team (Latest Contact Info) Description 08/11/2018 Scan [facility] Medical Group , Dakota Doshi MD [...] filedocumented in this encounter Care Teams Senior Quality Methods Specialist Relationship Specialty Start Date End Date Juan Francisco Carbajal MD PCP - General FAMILY PRACTICE 04/29/18 documented as of this encounter
== END 2024-10-11 12:15 | disposition home or self-care (01) ==
PROVIDERS: Student in an Organized Health Care Education/Training Program; Emergency Provider Physician Assistant; PCP Internal Medicine
DX: J02.0 Streptococcal pharyngitis (principal); Z20.822 Contact with and (suspected) exposure to COVID-19
CPT/HCPCS: 36415; 70491; 80048; 85025; 85652; 86140; 87637; 87651; 96365; 96375; 99284; J0295; J1100; J1885; Q9967

== ENCOUNTER 2024-10-27 16:00 | Outpatient (CLI) | payer OTHER, SELFPAY ==
[2024-10-27 16:19] LABS: Basophils Absolute Auto 0.04 K/mm3 (0.00-0.10); Basophils Percent Auto 0.9 % (0.0-1.0); Eosinophils Absolute Auto 0.03 K/mm3 (0.02-0.50); Eosinophils Percent Auto 0.6 % (1.0-6.0); Hematocrit 44.2 % (40.0-54.0); Hemoglobin 14.9 g/dL (14.0-18.0); Immature Granulocyte Absolute 0.02 K/mm3 (0.00-0.00); Immature Granulocyte Percent A 0.4 % (0.0-0.0); Lymphocytes Absolute Auto 1.66 K/mm3 (1.10-4.50); Lymphocytes Percent Auto 35.9 % (18.0-42.0); Mean Corpuscular HGB Conc 33.7 g/dL (32-36); Mean Corpuscular Hemoglobin 28.8 pg (27.0-31.0); Mean Corpuscular Volume 85.3 fL (78.0-102.0); Mean Platelet Volume 10.2 fl (8.7-11.0); Monocytes Absolute Auto 0.41 K/mm3 (0.10-0.90); Monocytes Percent Auto 8.9 % (2.0-11.0); Neutrophils Absolute Auto 2.47 K/mm3 (1.70-7.20); Neutrophils Percent Auto 53.3 % (50.0-70.0); Platelet Count Result 194 K/mm3 (150-420); Red Blood Count 5.18 M/mm3 (4.70-6.10); Red Cell Distribution Width 12.3 % (11.6-14.4); White Blood Count 4.6 K/mm3 (4.8-10.8)
[2024-10-27 16:48] LABS: Alanine Aminotransferase 33 U/L (16-63); Albumin Level 4.2 g/dL (3.4-5.0); Alkaline Phosphatase 86 U/L (46-116); Anion Gap 10 mmol/L (4-12); Aspartate Amino Transferase 21 U/L (15-37); Bilirubin,Total 0.7 mg/dL (0.00-1.00); Blood Urea Nitrogen 12 mg/dL (7-18); Carbon Dioxide 28 mmol/L (21-32); Chloride 103 mmol/L (98-108); Estimated Glomerular Filt Rate > 60; Glucose 84 mg/dL (70-99); Osmolality Calculated 290 mOsm/kg (285-295); Potassium 4.2 mmol/L (3.5-5.1); Sodium 141 mmol/L (136-145); Total Protein 7.3 g/dL (6.4-8.2)
[2024-10-27 21:01] LABS: Toxigenic C. Diff NEGATIVE (NEGATIVE)
[2024-10-31 14:53] LABS: Norovirus RNA PCR, Stool DETECTED
== END 2024-10-27 16:01 | disposition home or self-care (01) ==
LOC: CHSLAB 16:02
PROVIDERS: PCP Internal Medicine; Visit Provider Internal Medicine
DX: R19.7 Diarrhea, unspecified (principal)
CPT/HCPCS: 36415; 80053; 85025; 87045; 87425; 87427; 87449; 87493; 87798

== ENCOUNTER 2024-10-29 10:05 | Emergency (ER) | payer OTHER, SELFPAY ==
[2024-10-29 10:19] VITALS: BP 140/90; PULSE 72; RESP 16; TEMP 36.1; O2SAT 100
[2024-10-29 10:28] LABS: EDSTREPNEGPOS1 Negative (Negative)
--- NOTE | 2024-10-29 10:37 | ED.URI ---
HPI - URI/Sore Throat General Chief Complaint: Upper Respiratory Infection Stated Complaint: Swollen throat/ Std Test Time Seen by Provider: 10/29/24 10:24 Source: patient and RN notes reviewed Mode of arrival: ambulatory Limitations: no limitations History of Present Illness HPI Narrative: Patient presents today complaining of swollen throat. Denies pain in the throat. Denies difficulty swallowing, shortness of breath, fever. Patient was treated for strep throat with a 10 day course of penicillin and finished 2 days ago. He is not currently taking any srcc-vtk-xulglok medication for his symptoms prior to arrival. Patient is also concerned about sexually transmitted infections in his mouth and throat as he has had unprotected sexual contact last 1 month ago. Related Data Allergies Allergy/AdvReac Type Severity Reaction Status Date / Time No Known Allergies Allergy Verified 10/29/24 10:13 Review of Systems Review of Systems: CONSTITUTIONAL: Denies body aches, fever, chills, or sweats. EYES: Denies visual changes, redness, or discharge. ENT: Denies rhinorrhea, congestion, sore throat, or otalgia. + swollen throat CARDIOVASCULAR: Denies chest pain, palpitations, or edema. RESPIRATORY: Denies cough or dyspnea. GASTROINTESTINAL: Denies abdominal pain, nausea, vomiting, or diarrhea. GENITOURINARY: Denies dysuria or hematuria. SKIN: Denies rash, itching, or wounds. MUSCULOSKELETAL: Denies back pain, joint pain, or myalgia. NEUROLOGIC: Denies headache, numbness, tingling, or weakness. PSYCH: Denies depression or anxiety. [facility] Past Medical History Medical History No active medical problems Social History Social History Social History: Denies use of drugs alcohol or tobacco Comments At time of signature, I have reviewed and agree with nursing past medical, surgical, social and family history unless otherwise noted. Please see nursing chart for further information. There is no relevant family history pertinent to the presenting complaint Exam Narrative: GENERAL: Well-appearing, well-nourished, and in no acute distress. HEAD: Normocephalic, atraumatic. EYES: EOMI. No redness or drainage. Conjunctivae normal. ENT: Mucous membranes pink and moist. Nares clear. No rhinorrhea. TMs normal bilaterally. Uvula is erythematous and mildly edematous without exudate. Remainder of throat is normal. Uvula midline. NECK: Normal AROM. Supple. Right anterior cervical chain lymphadenopathy. CHEST: No respiratory distress. Clear to auscultation. HEART: Regular rate and rhythm. No murmur appreciated. EXTREMITIES: Normal range of motion. No edema. SKIN: Warm, dry, no rash. Capillary refill normal. Normal skin turgor. NEURO: No focal deficits. Alert and oriented x3. Gait steady. PSYCH: Normal affect. No signs of depression or anxiety. Course Course Level of Care: Express Care Visit Vital Signs Vital signs: Vital Signs Temperature 96.9 F L 10/29/24 10:19 Pulse Rate 72 10/29/24 10:19 Respiratory Rate 16 10/29/24 10:19 Blood Pressure 140/90 10/29/24 10:19 Pulse Oximetry 100 10/29/24 10:19 Temperature 96.9 F L 10/29/24 10:19 Pulse Rate 72 10/29/24 10:19 Respiratory Rate 16 10/29/24 10:19 Blood Pressure 140/90 10/29/24 10:19 Pulse Oximetry 100 10/29/24 10:19 Reviewed MDM - URI/Sore Throat MDM Narrative Medical decision making narrative: Rapid strep negative. Strep culture pending. Swab for oral gonorrhea and chlamydia has been collected. Patient declines prophylactic antibiotics. Discussed with patient that he likely needs a more thorough sexual health exam, resources provided. Anticipatory guidance given. Differential Diagnosis Differential diagnosis: Likely upper respiratory infection, pharyngitis and other (Strep throat, gonorrhea, chlamydia) Lab Data Attestation: I reviewed the patient's lab results. Labs: Lab Results 10/29/24 Range/Units 10:15 POC Grp A Strep Screen Negative (Negative) Critical Care Time Critical Care Time Critical Care Time: No Discharge Plan Discharge Clinical Impression: Pharyngitis Qualifiers: Pharyngitis/tonsillitis etiology: unspecified etiology Qualified Code(s): J02.9 - Acute pharyngitis, unspecified Patient Disposition: Home, Self-Care Condition: Stable Instructions: Pharyngitis (ED) Additional Instructions: Your rapid strep test is negative today. It has been sent to the lab for strep culture and you will be notified in a few days if it comes back positive, and appropriate antibiotics will be sent in for you at time. Your throat swab for gonorrhea and chlamydia has also been sent to the hospital. The results should be back in the next 24 hours, and you will be notified of the results. If you have any positive results, you will be set up with antibiotics as you have declined prophylactic antibiotics today. It is recommended that you follow-up with either your primary or a sexual health clinic for more thorough testing. Take ibuprofen for pain or inflammation. Your blood pressure was elevated above 120/80 today at Urgent Care. This puts you above the threshold for follow up. Please schedule a followup visit with your personal physician as soon as possible, for further evaluation and treatment. Even blood pressure exceeding 120/80 may indicate pre-hypertension. Patient Language: Lebanese Prescriptions: No Action ondansetron 4 mg tablet,disintegrating 4 mg PO Q8H PRN (Reason: nausea and vomiting) Qty: 16 0RF Follow-up/Referrals: Ronald Rojas MD [Primary Care Provider] - Time of Disposition: 10:40
[2024-10-29 20:13] LABS: Chlamydia trachomatis NOT DETECTED (NOT DETECTE); Neisseria gonorrhoeae PCR NOT DETECTED (NOT DETECTE)
== END 2024-10-29 10:43 | disposition home or self-care (01) ==
PROVIDERS: Emergency Provider Nurse Practitioner; PCP Internal Medicine
DX: J02.9 Acute pharyngitis, unspecified (principal); Z72.51 High risk heterosexual behavior
CPT/HCPCS: 87081; 87491; 87591; 87880; 99213; G0463

== ENCOUNTER 2024-11-09 16:50 | Emergency (ER) | payer OTHER, SELFPAY ==
[2024-11-09 17:04] VITALS: BP 138/81; PULSE 66; RESP 16; TEMP 36.2; O2SAT 99
[2024-11-09 17:20] LABS: EDSTREPNEGPOS1 Negative (Negative)
--- NOTE | 2024-11-09 17:20 | ED.URI ---
HPI - URI/Sore Throat General Chief Complaint: Upper Respiratory Infection Stated Complaint: SWOLLEN THROAT Time Seen by Provider: 11/09/24 17:10 Source: patient Mode of arrival: ambulatory Limitations: no limitations History of Present Illness HPI Narrative: Dayron is a 29-year-old male patient presenting to the clinic today with complaints a sore throat x3 days. He denies any fevers, chills, body aches. Feels like the right side of his throat is more swollen. MD elicited complaint: sore throat Related Data Home Medications ?Medication ?Instructions ?Recorded ?Confirmed ?Last Taken ?Type venlafaxine 75 mg capsule,extended 75 mg PO QPM 11/09/24 11/09/24 Unknown History release 24 hr Allergies Allergy/AdvReac Type Severity Reaction Status Date / Time No Known Allergies Allergy Verified 11/09/24 16:57 Review of Systems Review of Systems: Pertinent positives per HPI. Patient denies any fever, chills, rash, headache, visual changes, dizziness, cough, shortness of breath, chest pain, palpitations, nausea, vomiting, diarrhea, constipation, abdominal pain, or any urinary issues. [facility] Past Medical History Medical History No active medical problems Social History Social History Social History: Denies use of drugs alcohol or tobacco Comments At the time of my signature, I reviewed and agree with the nursing past medical, surgical, social, and family history. There is no relevant family history pertinent to the patient complaint. Exam Narrative: General: Well-developed, well nourished, in no apparent distress Head: Normocephalic, atraumatic Eyes: Pupils equally round and reactive to light bilaterally, EOM intact, sclera and conjunctive clear, no discharge, lids normal Ears: TMs intact and clear, ear canals clear, no drainage, grossly hearing normal. Nose: Nares patent, clear discharge, no inflammation, no sinus tenderness. Mouth: Oral pharynx red with bilateral tonsillar enlargement without lesions or masses, good dentition, MMM. Neck: Supple, trachea midline, no enlargement of anterior or posterior cervical nodes, no thyroid masses or goiter palpable. Cardio: Regular rate and rhythm, s1 and s2 normal, no murmur appreciated. Resp: Clear to auscultation bilaterally, no rhonchi, rales, wheezing or rubs Course Course Emergency Course: Portions of this record may have been created with voice recognition software. Level of Care: Express Care Visit Vital Signs Vital signs: Vital Signs Temperature 36.2 C L 11/09/24 17:04 Pulse Rate 66 11/09/24 17:04 Respiratory Rate 16 11/09/24 17:04 Blood Pressure 138/81 11/09/24 17:04 Pulse Oximetry 99 11/09/24 17:04 Temperature 36.2 C L 11/09/24 17:04 Pulse Rate 66 11/09/24 17:04 Respiratory Rate 16 11/09/24 17:04 Blood Pressure 138/81 11/09/24 17:04 Pulse Oximetry 99 11/09/24 17:04 Vital signs reviewed MDM - URI/Sore Throat MDM Narrative Medical decision making narrative: At the time of visit patient is resting comfortably on the exam table. Patient appears to be nontoxic. Labs: Strep test was performed and negative in the clinic today. We will send strep for culture. Plan: I suspect patient has pharyngitis. Prescription for prednisone was sent to the pharmacy. Supportive measures were discussed with the patient and they voiced understanding discharge instructions and agrees to treatment plan. Return precautions reviewed Differential Diagnosis Differential diagnosis: Likely upper respiratory infection, otitis media, sinusitis, viral infection, bronchitis, influenza, pharyngitis and other (COVID) Lab Data Labs: Lab Results 11/09/24 Range/Units 17:19 POC Grp A Strep Screen Negative (Negative) Discharge Plan Discharge Clinical Impression: Pharyngitis Qualifiers: Pharyngitis/tonsillitis etiology: unspecified etiology Qualified Code(s): J02.9 - Acute pharyngitis, unspecified Patient Disposition: Home, Self-Care Condition: Stable Instructions: Antibiotic Form, Pharyngitis (ED) Additional Instructions: Strep test was negative in the clinic today. We will send strep culture. Take prescription medications only as prescribed-prednisone Increase fluids and stay well hydrated Tylenol/motrin for pain/fever Flonase and OTC antihistamines as directed Vicks vapor rub to open sinuses Sinus rinses for congestion Cepacol spray, cough drops, throat lozenges, warm tea with honey/lemon, gargle salt water to soothe throat BRAT diet for diarrhea Clear liquids x 24 hours then advance as tolerated for nausea/vomiting Go to the ED if you develop a worsening in your condition- high fever not controlled by Tylenol or Motrin, dehydration, weakness, lethargy, shortness of breath, or chest pain. Follow up with your PCP in 3-5 days if symptoms persist. Patient Language: Kinyarwanda Prescriptions: New prednisone 20 mg tablet 40 mg PO DAILY 5 Days Qty: 10 0RF No Action venlafaxine 75 mg capsule,extended release 24hr 75 mg PO QPM ondansetron 4 mg tablet,disintegrating 4 mg PO Q8H PRN (Reason: nausea and vomiting) Qty: 16 0RF Follow-up/Referrals: Ronald Rojas MD [Primary Care Provider] - Stand Alone Forms: Work/School Release IP Time of Disposition: 17:23 Quality NIHSS Nursing Documentation ED NIHSS nursing documentation: reviewed/agree
== END 2024-11-09 17:29 | disposition home or self-care (01) ==
PROVIDERS: Emergency Provider Nurse Practitioner Family; PCP Internal Medicine
DX: J02.9 Acute pharyngitis, unspecified (principal)
CPT/HCPCS: 87081; 87880; 99213; G0463

== ENCOUNTER 2024-12-28 12:55 | Emergency (ER) | payer OTHER, SELFPAY ==
--- NOTE | ~2024-12-28 | XR_ITS ---
XR elbow RT min 3V Ordering provider: Sly Hamilton MD History: . pain, right elbow, pain s/p arm wrestling . Comparison: None. FINDINGS: BONES: No acute fracture or dislocation. JOINT SPACES: Normal. SOFT TISSUES: Unremarkable. No definite joint effusion. IMPRESSION: No acute osseous abnormality of the right elbow. Reviewed, dictated and finalized at location A.
[2024-12-28 13:01] VITALS: BP 140/98; PULSE 66; RESP 18; TEMP 36.2; O2SAT 99
--- NOTE | 2024-12-28 14:05 | ED.UPPEXIN ---
HPI - Extremity Injury (Upper) General Chief Complaint: Extremity Injury, Upper Stated Complaint: Right elbow pain x 4 days Time Seen by Provider: 12/28/24 13:35 History of Present Illness HPI narrative: 29-year-old otherwise healthy male presenting to the emergency department for evaluation of right elbow pain for last several days. 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 He felt significant pain in his distal lateral aspect of the dorsal elbow. Has been having pain with certain range of motion activities including extension of the elbow and with load bearing. No pain at the distal or proximal joints at the wrist or shoulder. 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 No shoulder impingement syndromes. Was otherwise in his normal state of health. No injuries otherwise. Has been taking 400 mg ibuprofen at home without any relief of symptoms. Today while he was playing and throwing a ball he noted that he has significant onset of pain in the same location of his distal lateral aspect upper arm when he extended the elbow. No falls or direct trauma. Related Data Home Medications ?Medication ?Instructions ?Recorded ?Confirmed ?Last Taken ?Type venlafaxine 75 mg capsule,extended 75 mg PO QPM 11/09/24 11/09/24 Unknown History release 24 hr Allergies Allergy/AdvReac Type Severity Reaction Status Date / Time No Known Allergies Allergy Verified 11/09/24 16:57 Review of Systems Review of Systems: As reviewed above in [facility] Past Medical History Medical History No active medical problems Social History Social History Social History: Denies use of drugs alcohol or tobacco Exam Narrative: GENERAL: [Well-appearing, well-nourished, and in no acute distress.] HEAD: [Normocephalic, atraumatic.] EYES: [PERRLA and EOMI.] ENT: Nares clear, no rhinorrhea or epistaxis. Mucous membranes moist. NECK: Supple. CHEST: [Clear to auscultation. No respiratory distress.] HEART: [Regular rate and rhythm]. No murmur heard. [Normal peripheral pulses.] ABDOMEN: [Soft, nondistended], [nontender], [No rigidity or guarding] EXTREMITIES: Normal range of motion. [No edema.] tenderness to palpation over the biceps insertion. No tenderness over the olecranon process, no shoulder restricted range of motion. Bean Weigher strength 5/5. Pain is reproducible with certain activities including flexion of the forearm against resistance, internal rotation of the elbow against resistance. SKIN: Warm, dry, no rash. NEURO: [No focal deficits]. Alert and oriented [x3.] PSYCH: [Normal mood and affect.] Course Vital Signs Vital signs: Vital Signs Temperature 36.2 C L 12/28/24 13:01 Pulse Rate 66 12/28/24 13:01 Respiratory Rate 18 12/28/24 13:01 Blood Pressure 140/98 H 12/28/24 13:01 Pulse Oximetry 99 12/28/24 13:01 Oxygen Delivery Room Air 12/28/24 13:01 Temperature 36.2 C L 12/28/24 13:01 Pulse Rate 66 12/28/24 13:01 Respiratory Rate 18 12/28/24 13:01 Blood Pressure 140/98 H 12/28/24 13:01 Pulse Oximetry 99 12/28/24 13:01 Oxygen Delivery Room Air 12/28/24 13:01 MDM - Extremity Injury (Upper) MDM Narrative Medical decision making narrative: 29-year-old otherwise healthy male presenting to the emergency department with right elbow pain. He has signs and symptoms of potential sprain or less likelty tear of his biceps versus brachioradialis muscle given his physical exam findings. He injured it while arm wrestling at school several days ago. He has pain reproducible with flexion of the forearm against resistance, internal rotation of the elbow against resistance. No pain at rest or without any movement. No pain in the shoulder or wrist. No weakness. No neuropathy. X-rays of the elbow were obtained and unremarkable. Patient was referred to orthopedics for outpatient evaluation and given physical therapy instructions and and order but he will have to follow with you orthopedics or his PCP to get this established. Patient was given a course of ketorolac for pain control encourage take Tylenol as well. Patient's questions were answered he was safe for discharge home at this time. Medical Records Attestation: I reviewed the patient's medical records. Imaging Data Attestation: I personally reviewed and interpreted this imaging study as follows: My impression: Impressions Elbow X-Ray 12/28/24 13:30 IMPRESSION: No acute osseous abnormality of the right elbow. Discharge Plan Discharge Clinical Impression: Sprain, bicep, Tenderness of brachioradialis muscle Patient Disposition: Home, Self-Care Condition: Stable Instructions: Antibiotic Form, Elbow Sprain (ED), Tendon Rupture (ED) Additional Instructions: Your elbow x-ray was negative but your physical examination is consistent with a high-grade sprain of potentially your biceps or brachioradialis muscle or even potentially a partial tear of these tendons. Recommendations are for compression, ice as needed for pain in addition to anti-inflammatories including up to 800 mg of ibuprofen every 8 hours, Tylenol 1000 mg every 8 hours. You will likely need physical therapy and orthopedics referral which will provide. Return if you have any new or worsening concerns at any time. Otherwise follow-up with regular doctor and the specialists. Patient Language: Cambodian Prescriptions: New ketorolac 10 mg tablet 10 mg PO Q8H PRN (Reason: pain) 5 Days Qty: 20 0RF Rx Instructions: maximum total duration of 5 days from all oral, intranasal, or parenteral formulations No Action venlafaxine 75 mg capsule,extended release 24hr 75 mg PO QPM prednisone 20 mg tablet 40 mg PO DAILY 5 Days Qty: 10 0RF ondansetron 4 mg tablet,disintegrating 4 mg PO Q8H PRN (Reason: nausea and vomiting) Qty: 16 0RF Other Ambulatory Orders: PT Outpatient Eval and Treat (ONCE) Timeframe: [id number] Location: Determined by Patient Ordered By: Ranjeet Richter Follow-up/Referrals: Petar Dorado MD [Physician] - 1 Week (Right elbow pain, concern for biceps versus brachioradialis tear/sprain) Juan Zamarripa MD [Physician] - 1 Week (Right elbow pain, concern for biceps versus brachioradialis tear/sprain) Ronald Rojas MD [Primary Care Provider] - 3 Days (Physical therapy referral ) Gautam Rubin MD [Physician] - 1 Week (Right elbow pain, concern for biceps versus brachioradialis tear/sprain) Time of Disposition: 14:13
--- OUTSIDE RECORDS SUMMARY | 2024-12-28 14:53 | XMS_ITS | Encounter Summary ---
Author Organization [facility] Address [address] [place] [address] Care Team Providers Care Oncology Physician Name Role Phone Unavailable Primary Care Provider Unavailabl e Encounter Details Date Type Department Care Team (Late st Contact Info) Description 06/12/2023 Lab Requisition [facility] - DermPath Lab [address] [facility] [place] [address] Shantanu Guzman MD [address] [place] [address] Social History Tobacco Use Types [...] 3:33 AM CDT) Case Report Dermatopathology Report Case: [id number] Authorizing Provider: Shantanu Guzman MD Collected: 06/11/2023 03:33 AM Ordering Location: [facility] DermPath Lab Received: 06/12/2023 12:29 PM Pathologist: Anton Vallecillo MD Specimens: A) - Skin, left midline posterior superior neck B) - Skin, right midline posterior superior neck C) - Skin, right abdomen 3 4:46 PM T DERMATOPATHOLOGY LABORATORY Final Diagnosis Specimen A. 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 SKIN, right abdomen: COMPOUND NEVUS WITH CONGENITAL FEATURES (D22.5) 3 4:46 PM T DERMATOPATHOLOGY LABORATORY Clinical History A-C: R/O Dys nevus 3 4:46 PM T DERMATOPATHOLOGY LABORATORY Gross Description Specimen A: Received [...] 11x8x2 mm. Jar 0. 3 4:46 PM [facility] DERMATOPATHOLOGY LABORATORY Microscopic Description Specimen A. SKIN, [...] characteristic determined by the Dermatopathology Laboratory at [facility], directed by Dr. Ifrah Vallecillo. These tests need not be, and therefore are not, approved by the [place] Food and Drug Administration. The tests are used for clinical purposes. Billing Codes Specimen Charges Stain Charges 02906 27961 80001 1 1 1 3 4:46 PM CDT [...] LAB - PATHOLOGY/CYTO LOGY ORDERABLES DERMATOPATHOLOGY LABORATORY [facility] - Department of Dermatology [facility] Medicine [address] [place] [address], [address] [phone] documented in this encounter Visit Diagnoses Not on filedocumented in this encounter
--- OUTSIDE RECORDS SUMMARY | 2024-12-28 14:53 | XMS_ITS | Encounter Summary ---
Author Organization [facility] Address [address] [facility] [place] [address] Care Team Providers Care Delivery Architect Name Role Phone Unavailable Primary Care Provider Unavailabl e Encounter Details Date Type Department Care Team (Late st Contact Info) Description 01/26/2021 Lab Requisition [facility] DermPath Lab [address] [facility] [place] [address] Shantanu Guzman MD [address] [place] [address] Social History Tobacco Use Types [...] AM CDT) Case Report Dermatopathology Report Case: [id number] Authorizing Provider: Shantanu Guzman MD Collected: 01/24/2021 03:33 AM Ordering Location: [facility] DermPath Lab Received: 01/26/2021 02:11 PM Pathologist: Darcy Stevens MD Specimen: Skin, occipital scalp 5:37 PM CDT DERMATOPATHOLOGY LABORATORY Final Diagnosis Specimen A. 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 5:37 PM CDT DERMATOPATHOLOGY LABORATORY Gross Description Specimen A: Received is one formalin filled container labeled with the patient's name and designated occipital scalp. The specimen consists of a punch biopsy measuring [id number]. Jar 0. 5:37 PM CDT DERMATOPATHOLOGY LABORATORY Microscopic Description Specimen A. SKIN, [...] cannot be excluded. Clinical correlation is recommended. 5:37 PM CDT DERMATOPATHOLOGY LABORATORY Disclaimer An external and internal positive and negative controls are appropriate for the histochemical, immunohistochemical and immunofluorescence stain(s) in this case (if any), except where stated explicitly. The performance characteristics of the stain(s) cited in this report were developed and its performance characteristic determined by the Dermatopathology Laboratory at [facility], directed by Dr. Ifrah Vallecillo. These tests need not be, and therefore are not, approved by the [place] Food and Drug Administration. The tests are used for clinical purposes. Billing Codes Specimen Charges Stain Charges 95835 1 68020 1 5:37 PM CDT DERMATOPATHOLOGY LABORATORY Embedded Images 5:37 PM CDT DERMATOPATHOLOGY LABORATORY Pathology/Cytolo gy TISSUE SPECIMEN FROM SKIN / Unknown 01/24/2021 3:33 AM CDT 01/26/2021 2:11 PM CDT Shantanu Guzman MD LAB - PATHOLOGY/CYTO LOGY ORDERABLES DERMATOPATHOLOGY LABORATORY [facility] - Department of Dermatology [facility] Medicine [address] [place] [address], [address] Floor [address] [phone] documented in this encounter Visit Diagnoses Not on filedocumented in this encounter
--- OUTSIDE RECORDS SUMMARY | 2024-12-28 14:53 | XMS_ITS | Clinical Summary ---
Author Organization [facility] Address [address] [place] [id number] Care Team Providers Care Ob/Gyn Doctor Name Role Phone Ronald Rojas MD Primary Care Provider Allergies No known active allergies Medications venlafaxine XR (EFFEXOR-XR) 75 mg 24 hr capsule Take 1 capsule (75 mg total) by mouth daily 10/31/2024 Active Active Problems Problem Noted Date Diagnosed Date Chronic tonsillitis 11/19/2024 Assessment & Plan (11/19/2024 9:54 AM MANPOWER DEVELOPMENT MANAGER): 64 ounces of caffeine free and soda free fluid daily Multivitamin daily Good hand washing Personal review of CT report from [facility]: no abscess, enlargement of tonsils bilaterally Encounters Date Type Department Care Team Description 11/19/2024 9:15 AM MANPOWER DEVELOPMENT MANAGER Office Visit [facility] - [address] [place] [address] Deisy Bunch DO Chronic tonsillitis (Primary Dx); Chronic sinusitis, unspecified location from Last 3 Months Social History Tobacco Use Types Packs/Day Years Used Date Smoking Tobacco: Never Tobacco Cessation:Counseling Given: Not Answered Sex and Gender Information Value Date Recorded Sex Assigned at Not on file Legal Sex Male 11:54 PM MANPOWER DEVELOPMENT MANAGER Gender Identity Not on file Sexual Orientation Not on file Obstetrics History Last Filed Vital Signs Vital Sign Reading Time Taken Comments Blood Pressure - - Pulse - - Temperature - - Respiratory Rate - - Oxygen Saturation - - Inhaled Oxygen Concentration - - Weight 111.6 kg (246 lb) 11/19/2024 8:57 AM MANPOWER DEVELOPMENT MANAGER Height 190.5 cm (6' 3 ) 11/19/2024 8:57 AM MANPOWER DEVELOPMENT MANAGER Body Mass Index 30.75 11/19/2024 8:57 AM MANPOWER DEVELOPMENT MANAGER Plan of Treatment Health Maintenance Due Date Last Done Comments Depression Screening 1995 Hepatitis C Screening 1995 DTaP/Tdap/Td Vaccine (1 - Tdap) 2006 Varicella Vaccines (1 of 2 - 13+ 2-dose series) 2008 Hepatitis B Screening 2013 Regular Well Visit/Exam 18-64 2013 Influenza Vaccine (#1) 2024 07/01/2018 HPV Vaccines Aged Out No longer eligi ble based on patient's age to complete this topic Pneumococcal vaccine <65 Aged Out No longer eligible based on patient's age to complete [place] [address] [facility] CHOICE PLUS Care Teams Ob/Gyn Doctor Relationship Specialty Start Date End Date Ronald Rojas MD [address] [place] [address] PCP - General Internal Medicine 09/20/24
--- OUTSIDE RECORDS SUMMARY | 2024-12-28 14:53 | XMS_ITS | Clinical Summary ---
Author Organization [facility] [employer] Address [address] [place] [address] Care Team Providers Care Mogul Operator Name Role Phone Unavailable Primary Care Provider Unavailabl e Source Comments [facility] [employer],non-owned Affiliates and Associated Physician Practices is amultiple site organization consisting of ambulatory clinics and hospital sitesin [place], [place], [place] and [place]. This disclosure is being madepursuant to the Care Everywhere program and may not contain all information available regarding this patient. Last updated 18.[facility] [employer] Allergies No known active allergies Medications [...] Comments Blood Pressure 122/80 12/09/2019 10:07 AM ORDNANCE OFFICER Pulse 110 12/09/2019 10:07 AM ORDNANCE OFFICER Temperature 36.7 C (98 F) 12/09/2019 10:07 AM ORDNANCE OFFICER Respiratory Rate 16 12/09/2019 10:07 AM ORDNANCE OFFICER Oxygen Saturation 97% 12/09/2019 10:07 AM ORDNANCE OFFICER Inhaled Oxygen Concentration - - Weight 108 kg (238 lb) 12/09/2019 10:07 AM ORDNANCE OFFICER Height 190.5 cm (6' 3 ) 12/09/2019 10:07 AM ORDNANCE OFFICER Body Mass Index 29.75 12/09/2019 10:07 AM ORDNANCE OFFICER Plan of Treatment Health Maintenance Due Date Last Done Comments HIV SCREENING 2010 HEPATITIS C SCREENING 05/27/2013 DTAP/TDAP/TD VACCINES (1 - Tdap) 2014 HEPATITIS B VACCINE (1 of 3 - 19+ 3-dose series) 2014 COVID-19 VACCINE (1 - 2023-2 5 season) 2024 INFLUENZA VACCINE (#1) 2024 07/01/2018 DEPRESSION SCREENING 10/06/2024 ZOSTER VACCINE (1 of 2) 2045 HIB VACCINE Aged Out No longer eligi ble based on patient's age to complete this topic HPV VACCINE Aged Out No longer eligi ble based on patient's age to complete this topic MENINGOCOCCAL (Group B) VACC INE SHARED DECISION-MAKING Aged Out No longer eligibl e based on patient's age to complete this topic MENINGOCOCCAL GROUPS A/C/Y/W VACCINE Aged Out No longer eligible b ased on patient's age to complete this topic PNEUMOCOCCAL VACCINE Aged Out No long er eligible based on patient's age to complete this topic DAYRON CARDOZO Personal/Family Son [address] [place] [address] Dayron Cardozo Personal/Family Self [address] [place] [address] [place] [address]
--- OUTSIDE RECORDS SUMMARY | 2024-12-28 14:53 | XMS_ITS | Referral Summary ---
Author Organization [facility] Building [facility] Address [address] [place] [address] Care Team Providers Care Valve Maker Name Role Phone Ronald Rojas MD Primary Care Provider [phone] Encounters Date Type Department Care Team Description 11/19/2024 9:15 AM MATTRESS PACKER Office Visit [facility] - [facility] [address] [place] [address] Deisy Bunch DO Chronic tonsillitis (Primary Dx); Chronic sinusitis, unspecified location from Last 3 Months Allergies No known active allergies Medications venlafaxine XR (EFFEXOR-XR) 75 mg 24 hr capsule Take 1 capsule (75 mg total) by mouth daily 10/31/2024 Active Active Problems Problem Noted Date Diagnosed Date Chronic tonsillitis 11/19/2024 Assessment & Plan (11/19/2024 9:54 AM MATTRESS PACKER): 64 ounces of caffeine free and soda free fluid daily Multivitamin daily Good hand washing Personal review of [facility] report [facility]: no abscess, enlargement of tonsils bilaterally Social History Tobacco Use Types Packs/Day Years Used Date Smoking Tobacco: Never Tobacco Cessation:Counseling Given: Not Answered Sex and Gender Information Value Date Recorded Sex Assigned at Not on file Legal Sex Male 11:54 PM MATTRESS PACKER Gender Identity Not on file Sexual Orientation Not on file Last Filed Vital Signs Vital Sign Reading Time Taken Comments Blood Pressure - - Pulse - - Temperature - - Respiratory Rate - - Oxygen Saturation - - Inhaled Oxygen Concentration - - Weight 111.6 kg (246 lb) 11/19/2024 8:57 AM MATTRESS PACKER Height 190.5 cm (6' 3 ) 11/19/2024 8:57 AM MATTRESS PACKER Body Mass Index 30.75 11/19/2024 8:57 AM MATTRESS PACKER Plan of Treatment Not on file Insurance [facility] CHOICE PLUS Care Teams Valve Maker Relationship Specialty Start Date End Date Ronald Rojas MD [address] [place], [place] [id number] PCP - General Internal Medicine 09/20/24
--- OUTSIDE RECORDS SUMMARY | 2024-12-28 14:53 | XMS_ITS | Clinical Summary ---
Author Organization [facility] Address [address] [place] [address] Phone Care Team Providers Care Editorial Cartoonist Name Role Phone Unavailable Primary Care Provider [...] on file Legal Sex Male 2:00 PM BRIDGE CARPENTER Gender Identity Not on file Sexual Orientation Not on file Last Filed Vital Signs Vital Sign Reading Time Taken Comments Blood Pressure 143/77 10/26/2018 2:15 PM BRIDGE CARPENTER Pulse 73 10/26/2018 2:15 PM BRIDGE CARPENTER Temperature 35.8 C (96.5 F) 10/26/2018 2:15 PM BRIDGE CARPENTER Respiratory Rate 18 10/26/2018 2:15 PM BRIDGE CARPENTER Oxygen Saturation 96% 10/26/2018 2:15 PM BRIDGE CARPENTER Inhaled Oxygen Concentration - - Weight 114.4 kg (252 lb 1.6 oz) 10/26/2018 2:15 PM BRIDGE CARPENTER Height 193 cm (6' 4 ) 10/26/2018 2:15 PM BRIDGE CARPENTER Body Mass Index 30.69 10/26/2018 2:15 PM BRIDGE CARPENTER Plan of Treatment Health Maintenance Due Date [...]
--- OUTSIDE RECORDS SUMMARY | 2024-12-28 14:53 | XMS_ITS | Clinical Summary ---
Author Organization [facility] Address [facility] [place] [address] Care Team Providers Care Chain Machine Operator Name Role Phone Juan Francisco Carbajal MD Primary Care Provider [phone] Allergies No known active allergies Active Problems [...] patient's age to complete this topic Meningococcal B Vaccine Aged Out No l onger eligible based on patient's age to complete [...] to complete this topic Insurance Care Teams Chain Machine Operator Relationship Specialty Start Date End Date Juan Francisco Carbajal MD PCP - General FAMILY PRACTICE 04/29/18
--- OUTSIDE RECORDS SUMMARY | 2024-12-28 16:03 | XMS_ITS | Clinical Summary ---
Author Organization [facility] Address [address] [place] [address] Phone Care Team Providers Care Park Interpretive Specialist Name Role Phone Unavailable Primary Care Provider [...] on file Legal Sex Male 2:00 PM RAIL TRACK MAINTAINER Gender Identity Not on file Sexual Orientation Not on file Last Filed Vital Signs Vital Sign Reading Time Taken Comments Blood Pressure 143/77 10/26/2018 2:15 PM RAIL TRACK MAINTAINER Pulse 73 10/26/2018 2:15 PM RAIL TRACK MAINTAINER Temperature 35.8 C (96.5 F) 10/26/2018 2:15 PM RAIL TRACK MAINTAINER Respiratory Rate 18 10/26/2018 2:15 PM RAIL TRACK MAINTAINER Oxygen Saturation 96% 10/26/2018 2:15 PM RAIL TRACK MAINTAINER Inhaled Oxygen Concentration - - Weight 114.4 kg (252 lb 1.6 oz) 10/26/2018 2:15 PM RAIL TRACK MAINTAINER Height 193 cm (6' 4 ) 10/26/2018 2:15 PM RAIL TRACK MAINTAINER Body Mass Index 30.69 10/26/2018 2:15 PM RAIL TRACK MAINTAINER Plan of Treatment Health Maintenance Due Date [...]
--- OUTSIDE RECORDS SUMMARY | 2024-12-28 16:03 | XMS_ITS | Clinical Summary ---
Author Organization [facility] Address [address] [place] [address] Care Team Providers Care Gauntlet Pairer Name Role Phone Ronald Rojas MD Primary Care Provider Allergies No known active allergies Medications venlafaxine XR (EFFEXOR-XR) 75 mg 24 hr capsule Take 1 capsule (75 mg total) by mouth daily 10/31/2024 Active Active Problems Problem Noted Date Diagnosed Date Chronic tonsillitis 11/19/2024 Assessment & Plan (11/19/2024 9:54 AM MANAGER CHANNEL): 64 ounces of caffeine free and soda free fluid daily Multivitamin daily Good hand washing Personal review of CT report from [facility]: no abscess, enlargement of tonsils bilaterally Encounters Date Type Department Care Team Description 11/19/2024 9:15 AM MANAGER CHANNEL Office Visit [facility] - [address] [place] [address] Deisy Bunch DO Chronic tonsillitis (Primary Dx); Chronic sinusitis, unspecified location from Last 3 Months Social History Tobacco Use Types Packs/Day Years Used Date Smoking Tobacco: Never Tobacco Cessation:Counseling Given: Not Answered Sex and Gender Information Value Date Recorded Sex Assigned at Not on file Legal Sex Male 11:54 PM MANAGER CHANNEL Gender Identity Not on file Sexual Orientation Not on file Obstetrics History Last Filed Vital Signs Vital Sign Reading Time Taken Comments Blood Pressure - - Pulse - - Temperature - - Respiratory Rate - - Oxygen Saturation - - Inhaled Oxygen Concentration - - Weight 111.6 kg (246 lb) 11/19/2024 8:57 AM MANAGER CHANNEL Height 190.5 cm (6' 3 ) 11/19/2024 8:57 AM MANAGER CHANNEL Body Mass Index 30.75 11/19/2024 8:57 AM MANAGER CHANNEL Plan of Treatment Health Maintenance Due Date [...] patient's age to complete [place] [address] [facility] CHOICE PLUS Care Teams Gauntlet Pairer Relationship Specialty Start Date End Date Ronald Rojas MD [address] [place] [address] PCP - General Internal Medicine 09/20/24
--- OUTSIDE RECORDS SUMMARY | 2024-12-28 16:03 | XMS_ITS | Clinical Summary ---
Author Organization [facility] Address [facility] [place] [address] Care Team Providers Care Sales Account Representative Name Role Phone Juan Francisco Carbajal MD Primary Care Provider [phone] Allergies No known active allergies Active Problems [...] to complete this topic Insurance Care Teams Sales Account Representative Relationship Specialty Start Date End Date Juan Francisco Carbajal MD PCP - General FAMILY PRACTICE 04/29/18
--- OUTSIDE RECORDS SUMMARY | 2024-12-28 16:03 | XMS_ITS | Clinical Summary ---
Author Organization [facility] Address [address] [place] [address] Care Team Providers Care Information Technology Associate Name Role Phone Unavailable Primary Care Provider Unavailabl e Source Comments [facility],non-owned Affiliates and Associated Physician Practices is amultiple site organization consisting of ambulatory clinics and hospital sitesin [place], [place], [place] and [place]. This disclosure is being madepursuant to the Care Everywhere program and may not contain all information available regarding this patient. Last updated 18.[employer] [facility] Allergies No known active allergies Medications Be [...] Comments Blood Pressure 122/80 12/09/2019 10:07 AM GREENHOUSE INSTRUCTOR Pulse 110 12/09/2019 10:07 AM GREENHOUSE INSTRUCTOR Temperature 36.7 C (98 F) 12/09/2019 10:07 AM GREENHOUSE INSTRUCTOR Respiratory Rate 16 12/09/2019 10:07 AM GREENHOUSE INSTRUCTOR Oxygen Saturation 97% 12/09/2019 10:07 AM GREENHOUSE INSTRUCTOR Inhaled Oxygen Concentration - - Weight 108 kg (238 lb) 12/09/2019 10:07 AM GREENHOUSE INSTRUCTOR Height 190.5 cm (6' 3 ) 12/09/2019 10:07 AM GREENHOUSE INSTRUCTOR Body Mass Index 29.75 12/09/2019 10:07 AM GREENHOUSE INSTRUCTOR Plan of Treatment Health Maintenance Due Date [...] Son [address] [place] [id number] Dayron Cardozo Personal/Family Self [address] [place] [address] [place] [id number]
--- OUTSIDE RECORDS SUMMARY | 2024-12-28 16:03 | XMS_ITS | Encounter Summary ---
Author Organization [facility] Address [address] [facility] [place] [address] Care Team Providers Care Risk Analyst Name Role Phone Unavailable Primary Care Provider Unavailabl e Encounter Details Date Type Department Care Team (Late st Contact Info) Description 06/12/2023 Lab Requisition [facility] - DermPath Lab [address], [place] [address] Shantanu Guzman MD [address] [place] [address] Social History Tobacco Use Types [...] AM CDT) Case Report Dermatopathology Report Case: [id number] Authorizing Provider: Shantanu Guzman MD Collected: 06/11/2023 03:33 AM Ordering Location: [facility] DermPath Lab Received: 06/12/2023 12:29 PM [...] 11x8x2 mm. Jar 0. 3 4:46 PM [facility] DERMATOPATHOLOGY LABORATORY Microscopic Description Specimen A. SKIN, [...] characteristic determined by the Dermatopathology Laboratory at [facility], directed by Dr. Ifrah Vallecillo. These tests need not be, and therefore are not, approved by the [place] Food and Drug Administration. The tests are used for clinical purposes. Billing Codes Specimen Charges Stain Charges 72101 68127 11550 1 1 1 3 4:46 PM CDT [...] LAB - PATHOLOGY/CYTO LOGY ORDERABLES DERMATOPATHOLOGY LABORATORY [facility] - Department of Dermatology [facility] Medicine [address] [place] [address], [address] [phone] documented in this encounter Visit Diagnoses Not on filedocumented in this encounter
--- OUTSIDE RECORDS SUMMARY | 2024-12-28 16:03 | XMS_ITS | Referral Summary ---
Author Organization [facility] Address [address] [place] [address] Care Team Providers Care Family Resource Coordinator Name Role Phone Ronald Rojas MD Primary Care Provider [phone] Encounters Date Type Department Care Team Description 11/19/2024 9:15 AM SENIOR ACCOUNTS PAYABLE SPECIALIST Office Visit [facility] - [facility] [address] [facility] [address] [place] [address] Deisy Bunch DO Chronic tonsillitis (Primary Dx); Chronic sinusitis, unspecified location from Last 3 Months Allergies No known active allergies Medications venlafaxine XR (EFFEXOR-XR) 75 mg 24 hr capsule Take 1 capsule (75 mg total) by mouth daily 10/31/2024 Active Active Problems Problem Noted Date Diagnosed Date Chronic tonsillitis 11/19/2024 Assessment & Plan (11/19/2024 9:54 AM SENIOR ACCOUNTS PAYABLE SPECIALIST): 64 ounces of caffeine free and soda free fluid daily Multivitamin daily Good hand washing Personal review of CT report from [facility]: no abscess, enlargement of tonsils bilaterally Social History Tobacco Use Types Packs/Day Years Used Date Smoking Tobacco: Never Tobacco Cessation:Counseling Given: Not Answered Sex and Gender Information Value Date Recorded Sex Assigned at Not on file Legal Sex Male 11:54 PM SENIOR ACCOUNTS PAYABLE SPECIALIST Gender Identity Not on file Sexual Orientation Not on file Last Filed Vital Signs Vital Sign Reading Time Taken Comments Blood Pressure - - Pulse - - Temperature - - Respiratory Rate - - Oxygen Saturation - - Inhaled Oxygen Concentration - - Weight 111.6 kg (246 lb) 11/19/2024 8:57 AM SENIOR ACCOUNTS PAYABLE SPECIALIST Height 190.5 cm (6' 3 ) 11/19/2024 8:57 AM SENIOR ACCOUNTS PAYABLE SPECIALIST Body Mass Index 30.75 11/19/2024 8:57 AM SENIOR ACCOUNTS PAYABLE SPECIALIST Plan of Treatment Not on file Insurance [facility] CHOICE PLUS [facility] HMO/PPO Address: [facility] [id number] [place] [address] Care Teams Family Resource Coordinator Relationship Specialty Start Date End Date Ronald Rojas MD [address] [place], [place] [id number] PCP - General Internal Medicine 09/20/24
--- OUTSIDE RECORDS SUMMARY | 2024-12-28 16:03 | XMS_ITS | Encounter Summary ---
Author Organization [facility] Address [address] [place] [address] Care Team Providers Care Escort Service Attendant Name Role Phone Unavailable Primary Care Provider Unavailabl e Encounter Details Date Type Department Care Team (Late st Contact Info) Description 01/26/2021 Lab Requisition [facility] DermPath Lab [address] [facility] [place] [address] Shantanu Guzman MD [address] [place] [address] Social History Tobacco Use Types [...] AM CDT) Case Report Dermatopathology Report Case: [id number] Authorizing Provider: Shantanu Guzman MD Collected: 01/24/2021 03:33 AM Ordering Location: [facility] DermPath Lab Received: 01/26/2021 02:11 PM [...] specimen consists of a punch biopsy measuring [id number]. Jar 0. 5:37 PM CDT DERMATOPATHOLOGY LABORATORY [...] characteristic determined by the Dermatopathology Laboratory at [facility], directed by Dr. Ifrah Vallecillo. These tests need not be, and therefore are not, approved by the [place] Food and Drug Administration. The tests are used for clinical purposes. Billing Codes Specimen Charges Stain Charges 82132 1 24499 1 5:37 PM CDT DERMATOPATHOLOGY LABORATORY Embedded Images 5:37 PM CDT DERMATOPATHOLOGY LABORATORY Pathology/Cytolo gy TISSUE SPECIMEN FROM SKIN / Unknown 01/24/2021 3:33 AM CDT 01/26/2021 2:11 PM CDT Shantanu Guzman MD LAB - PATHOLOGY/CYTO LOGY ORDERABLES DERMATOPATHOLOGY LABORATORY [facility] - Department of Dermatology [facility] Medicine [address] [place] [address], [address] [phone] documented in this encounter Visit Diagnoses Not on filedocumented in this encounter
== END 2024-12-28 14:32 | disposition home or self-care (01) ==
PROVIDERS: Emergency Provider Student in an Organized Health Care Education/Training Program; PCP Internal Medicine
DX: S53.491A Other sprain of right elbow, initial encounter (principal); X50.0XXA Overexertion from strenuous movement or load, initial encounter
CPT/HCPCS: 73080; 99283

== ENCOUNTER 2025-02-11 16:20 | Emergency (ER) | payer OTHER, SELFPAY ==
[2025-02-11 16:26] VITALS: BP 134/91; PULSE 85; RESP 16; TEMP 36.9; O2SAT 98
--- NOTE | 2025-02-11 16:44 | ED_ITS ---
HPI - URI/Sore Throat General Chief Complaint: Upper Respiratory Infection Stated Complaint: SORE THROAT/CHEST Time Seen by Provider: 02/11/25 16:44 Source: patient, RN notes reviewed and old records reviewed Mode of arrival: ambulatory Limitations: no limitations History of Present Illness HPI Narrative: 29 year old male presents to [facility] care with complaints of head congestion, sore throat and chest congestion and productive cough for the past 2 days. Patient reports that he has history of frequent strep throat in the past. Patient reports that he has not had any known fevers, chills or sweats or any body aches. He has been taking Ibuprofen for his discomfort. MD elicited complaint: cough, sore throat and nasal congestion Pertinent past history: other (strep throat and bronchitis) Onset (ago): day(s) (2) Severity: moderate Able to tolerate fluids by mouth: Yes Treatments prior to arrival: ibuprofen Related Data Home Medications ?Medication ?Instructions ?Recorded ?Confirmed ?Last Taken ?Type venlafaxine 75 mg capsule,extended 75 mg PO QPM 11/09/24 02/11/25 Unknown History release 24 hr Allergies Allergy/AdvReac Type Severity Reaction Status Date / Time No Known Allergies Allergy Verified 02/11/25 16:27 Review of Systems Review of Systems: CONSTITUTIONAL: Reports malaise,no chills, sweats, or fever. EYES: Denies visual changes, redness, or discharge. ENT: Reports rhinorrhea, congestion, sinus pain,no otalgia and positive for sore throat. CARDIOVASCULAR: Denies chest pain, palpitations, or edema. RESPIRATORY: Reports productive cough.? Denies dyspnea. GASTROINTESTINAL: Denies abdominal pain, nausea, vomiting, diarrhea SKIN: Denies rash or itching. MUSCULOSKELETAL: Denies myalgia. NEUROLOGIC: Denies headache. All systems reviewed & are unremarkable except as noted in HPI and below PMFSH Past Medical History Medical History (Updated 02/15/25 @ 10:18 by Swapna Pratt NP) Anxiety and depression History of strep sore throat Bronchitis Social History Social History Social History: Denies use of drugs alcohol or tobacco Smoking status: Never smoker Living arrangements: with family Gender identity (if verbalized by the patient): Male Comments At time of signature, agree with nursing past medical, surgical, social and family history. There is no relevant family history pertinent to the presenting complaint Exam Narrative: GENERAL: Well-appearing, well-nourished, and in no acute distress. HEAD: Normocephalic EYES: PERRLA, conjunctivae clear ENT: Nares clear, turbinates edematous and erythematous, clear discharge with sinus pressure. Mucous membranes moist. TM pearly arreguin with dull light reflex bilaterally; no tragal tenderness. Oropharynx erythematous without lesions. Tonsils red enlarged and without exudate, no drooling, no hoarseness, no trismus, uvula midline.post nasal drainage. NECK: Supple. No lymphadenopathy CHEST: Clear to auscultation, breath sounds equal. No wheezing, rhonchi, rales, or stridor. No respiratory distress, speaks in full sentences.SAO2 98% on room air HEART: Regular rate and rhythm. No murmur heard. SKIN: Warm, dry, no rash. NEURO: Alert and oriented x3. PSYCH: Normal mood and affect Course Course Emergency Course: Patient is aware of diagnosis, understands and agrees to treatment plan.? Anticipatory guidance given.? Patient agrees to follow-up as directed and is aware of reasons to seek care at the emergency department. Portions of this record may have been created with voice recognition software Level of Care: Express Care Visit Vital Signs Vital signs: Vital Signs Temperature 36.9 C 02/11/25 16:26 Pulse Rate 85 02/11/25 16:26 Respiratory Rate 16 02/11/25 16:26 Blood Pressure 134/91 H 02/11/25 16:26 Pulse Oximetry 98 02/11/25 16:26 Oxygen Delivery Room Air 02/11/25 16:26 Temperature 36.9 C 02/11/25 16:26 Pulse Rate 85 02/11/25 16:26 Respiratory Rate 16 02/11/25 16:26 Blood Pressure 134/91 H 02/11/25 16:26 Pulse Oximetry 98 02/11/25 16:26 Oxygen Delivery Room Air 02/11/25 16:26 Reviewed MDM - URI/Sore Throat MDM Narrative Medical decision making narrative: Differential diagnosis considered: Porras virus, strep pharyngitis, allergic rhinitis, upper respiratory tract infection, sinusitis, rhinosinusitis, nasopharyngitis. viral pharyngitis, otitis media, otitis externa, pneumonia, bronchitis, viral cough syndrome, viral syndrome, and influenza.? Exam findings show no acute concerns or changes; patient is non-toxic appearing and is in no distress.? Patient is appropriate for outpatient treatment and follow-up. Differential Diagnosis Differential diagnosis: Likely upper respiratory infection, viral infection, pharyngitis and other (strep pharyngitis, cough) Medical Records Attestation: I reviewed the patient's medical records. Lab Data Attestation: I reviewed the patient's lab results. Lab results narrative: strep screen negative culture sent Labs: Lab Results 02/11/25 Range/Units 16:48 POC Grp A Strep Screen Negative (Negative) reviewed Critical Care Time Critical Care Time Critical Care Time: No Discharge Plan Discharge Clinical Impression: Upper respiratory infection with cough and congestion Pharyngitis Qualifiers: Pharyngitis/tonsillitis etiology: unspecified etiology Qualified Code(s): J02.9 - Acute pharyngitis, unspecified Patient Disposition: Home Condition: Stable Instructions: Antibiotic Form, Pharyngitis (ED), Upper Respiratory Infection (ED) Additional Instructions: Increase fluids especially juices and water Alxe-sbz-xesmkiv cough and cold medicine of your choice for your symptoms Zyrtec Claritin or Azeb daily Tylenol or ibuprofen for any fever pain Steroids as directed--take with food heat to the face 20-30 minutes 4-6 times a day for pain Salt water gargles, throat lozenges or throat sprays as desired Antibiotic as directed--finished the medication If your symptoms persist, change or worsen significantly before you can contact your personal physician then please, without delay, go to the emergency department for further evaluation. Follow-up with PCP in 7-10 days or sooner if needed Follow up with PCP soon in regards to your blood pressure which is elevated above threshold for referral. Blood pressure above 120/80 may indicate pre- hypertension.134/91 Patient Language: Khmer Prescriptions: New penicillin V potassium 500 mg tablet 500 mg PO Q12H 10 Days Qty: 20 0RF prednisone 20 mg tablet 20 mg PO BID Qty: 10 0RF Rx Instructions: take with food No Action venlafaxine 75 mg capsule,extended release 24hr 75 mg PO QPM Follow-up/Referrals: Ronald Rojas MD [Primary Care Provider] - Time of Disposition: 17:11 Quality Charles Coma Scale Eyes: Open Verbal: Oriented and Alert Motor: Follows Commands [place] Coma Total Score: 15
[2025-02-11 16:52] LABS: EDSTREPNEGPOS1 Negative (Negative)
== END 2025-02-11 17:15 | disposition home or self-care (01) ==
PROVIDERS: Emergency Provider Registered Nurse; PCP Internal Medicine
DX: J06.9 Acute upper respiratory infection, unspecified (principal); R05.9 Cough, unspecified; J02.9 Acute pharyngitis, unspecified; F41.9 Anxiety disorder, unspecified; F32.A Depression, unspecified
CPT/HCPCS: 87081; 87880; 99213; G0463

== ENCOUNTER 2025-03-06 08:28 | Emergency (ER) | payer OTHER, SELFPAY ==
[2025-03-06 08:45] VITALS: BP 140/87; PULSE 95; RESP 16; TEMP 37.2; O2SAT 100
--- NOTE | 2025-03-06 08:45 | ED.URI ---
HPI - URI/Sore Throat General Chief Complaint: Upper Respiratory Infection Stated Complaint: SORE THROAT Time Seen by Provider: 03/06/25 08:45 Source: patient Mode of arrival: ambulatory Limitations: no limitations History of Present Illness HPI Narrative: Dayron is a 29-year-old male patient presenting to the clinic today with complaints of sore throat, headache, body aches, and chills times 2 days. He has not checked his temperature. Denies any known exposure to anyone with strep or mono. Denies any shortness of breath or chest pain. Related Data Home Medications ?Medication ?Instructions ?Recorded ?Confirmed ?Last Taken ?Type venlafaxine 75 mg capsule,extended 75 mg PO QPM 11/09/24 03/06/25 Unknown History release 24 hr Allergies Allergy/AdvReac Type Severity Reaction Status Date / Time No Known Allergies Allergy Verified 03/06/25 08:41 Review of Systems Review of Systems: Pertinent positives per HPI. Patient denies any fever, rash, visual changes, dizziness, cough, shortness of breath, chest pain, palpitations, nausea, vomiting, diarrhea, constipation, abdominal pain, or any urinary issues. [facility] Past Medical History Medical History Anxiety and depression History of strep sore throat Bronchitis Social History Social History Social History: Denies use of drugs alcohol or tobacco Smoking status: Never smoker Living arrangements: with family Gender identity (if verbalized by the patient): Male Comments At the time of my signature, I reviewed and agree with the nursing past medical, surgical, social, and family history. There is no relevant family history pertinent to the patient complaint. Exam Narrative: General: Well-developed, well nourished, in no apparent distress Head: Normocephalic, atraumatic Eyes: Pupils equally round and reactive to light bilaterally, EOM intact, sclera and conjunctive clear, no discharge, lids normal Ears: TMs intact and clear, ear canals clear, no drainage, grossly hearing normal. Nose: Nares patent, no discharge, no inflammation, no sinus tenderness. Mouth: Oral pharynx red with bilateral tonsillar enlargement left greater than right with exudate, no masses, good dentition, MMM. Uvula midline with even rise and fall Neck: Supple, trachea midline, no enlargement of anterior or posterior cervical nodes, no thyroid masses or goiter palpable. Cardio: Regular rate and rhythm, s1 and s2 normal, no murmur appreciated. Resp: Clear to auscultation bilaterally, no rhonchi, rales, wheezing or rubs Course Course Emergency Course: Portions of this record may have been created with voice recognition software. Level of Care: Express Care Visit Vital Signs Vital signs: Vital signs reviewed MDM - URI/Sore Throat MDM Narrative Medical decision making narrative: At the time of visit patient is resting comfortably on the exam table. Patient appears to be nontoxic. Labs: Strep test was negative. Will send strep for culture. Plan: Patient has exudate pharyngitis. Left tonsil is more swollen than right with localized redness of oral pharynx-possible start of early and peritonsillar abscess- the uvula is midline at this time. Will send in prescription for Augmentin. Supportive measures were discussed with the patient and they voiced understanding discharge instructions and agrees to treatment plan. Return precautions reviewed Differential Diagnosis Differential diagnosis: Likely upper respiratory infection, otitis media, sinusitis, viral infection, bronchitis, influenza, pharyngitis and other (COVID) Discharge Plan Discharge Clinical Impression: Exudative pharyngitis Patient Disposition: Home Condition: Stable Instructions: Antibiotic Form, Pharyngitis (ED) Additional Instructions: Strep test is negative in the clinic today. We will go ahead and empirically treat bacterial cause. Take Augmentin as prescribed Increase fluids and stay well hydrated Tylenol/motrin for pain/fever Flonase and OTC antihistamines as directed Vicks vapor rub to open sinuses Sinus rinses for congestion Cepacol spray, cough drops, throat lozenges, warm tea with honey/lemon, gargle salt water to soothe throat BRAT diet for diarrhea Clear liquids x 24 hours then advance as tolerated for nausea/vomiting Go to the ED if you develop a worsening in your condition- high fever not controlled by Tylenol or Motrin, dehydration, weakness, lethargy, shortness of breath, or chest pain. Follow up with your PCP in 3-5 days if symptoms persist. Patient Language: German Prescriptions: New amoxicillin-pot clavulanate 875-125 mg tablet 1 tablet PO Q12H 10 Days Qty: 20 0RF No Action venlafaxine 75 mg capsule,extended release 24hr 75 mg PO QPM Follow-up/Referrals: Ronald Rojas MD [Primary Care Provider] - Time of Disposition: 08:52 Quality NIHSS Nursing Documentation ED NIHSS nursing documentation: reviewed/agree
[2025-03-06 08:54] LABS: EDSTREPNEGPOS1 Negative (Negative)
== END 2025-03-06 08:58 | disposition home or self-care (01) ==
PROVIDERS: Emergency Provider Nurse Practitioner Family; PCP Internal Medicine
DX: J02.9 Acute pharyngitis, unspecified (principal); F41.9 Anxiety disorder, unspecified; F32.A Depression, unspecified
CPT/HCPCS: 87081; 87880; 99213; G0463

== ENCOUNTER 2025-03-17 09:42 | Outpatient (CLI) | payer OTHER, SELFPAY ==
--- NOTE | ~2025-03-17 | MR_ITS ---
MRI of the right elbow CLINICAL HISTORY: Pain TECHNIQUE: Proton-density and proton-density fat-sat imaging was performed in the axial, coronal, and sagittal planes. FINDINGS: Ulnar collateral ligament is intact. Radial collateral ligament and the lateral ulnar colla teral ligament are intact. Common flexor and common extensor tendon origins are intact. Bone marrow signals are unremarkable. No significant joint effusion. No significant osseous or articu lar abnormality of the elbow joint seen. Biceps, brachialis, and triceps tendons are intact. Visualized muscle bellies are unremarkable. There is minimal subcutaneous soft tissue edema over the olecranon and triceps tendon insertion. No soft t issue mass or fluid collection seen. IMPRESSION: Minimal subcutaneous soft tissue edema at the triceps tendon insertion, nonspecific. No other significant findings. Reviewed, dictated and finalized at [facility]. IMPRESSION: Minimal subcutaneous soft tissue edema at the triceps tendon insertion, nonspec ific. No other significant findings.
== END 2025-03-17 09:43 | disposition home or self-care (01) ==
LOC: GOSHIMG 09:43
PROVIDERS: PCP Internal Medicine; Visit Provider Internal Medicine
DX: M25.521 Pain in right elbow (principal)
CPT/HCPCS: 73221